=== PATIENT | female | born 1990 | race African-American/Black ===

== ENCOUNTER 2021-06-10 21:21 | Emergency (ER) | payer SELFPAY ==
[2021-06-10 22:16] LABS: Absolute Lymphocytes (CBC) 1.4 K/uL (0.7-4.9); Basophils % 0.2 % (0-1.3); Hematocrit 22.7 % (36.0-45.0); Lymphocytes % 15.9 % (15.3-44.8); MPV 6.3 fL (7.6-11.3); RBC Red Blood Cell Count 3.76 M/uL (3.86-4.86)
[2021-06-10 22:29] LABS: ALT/SGPT 24 U/L (12-78); AST/SGOT 29 U/L (15-37); Albumin 3.9 g/dL (3.4-5.0); Alkaline Phosphatase 45 U/L (45-117); BUN Blood Urea Nitrogen 23 mg/dL (7-18); Bicarbonate 26 mmol/L (21-32); Bilirubin Direct < 0.1 mg/dL (0-0.2); Bilirubin Total 0.3 mg/dL (0.2-1.0); Glucose Level 106 mg/dL (74-106); Potassium 3.7 mmol/L (3.5-5.1); Protein, Total 8.1 g/dL (6.4-8.2); Sodium Level 139 mmol/L (136-145)
[2021-06-10 22:55] LABS: Blood Morphology Comment NOTED (NOT SEEN); Hypochromasia 2+; Platelet Estimate ADEQ; White Blood Cell Scan OK (OK)
--- NOTE | 2021-06-10 23:10 | ER ---
Nurse's Notes [facility] Name: Ana Rosa Ferguson Age: 31 yrs Sex: Female : 1990 Arrival Date: 06/10/2021 Time: 21:26 Bed 5 Private MD: Diagnosis: Rash and other nonspecific skin eruption;Iron deficiency anemia, unspecified Presentation: 06/10 21:34 Chief complaint: Patient states: Rash that has progressed to general body over the last lp1 2 weeks, began on dorsal hands, reports itching, dry skin; Denies any new exposures to skin. Coronavirus screen: At this time, the client does not indicate any symptoms associated with coronavirus-19. Ebola Screen: No symptoms or risks identified at this time. Onset: The symptoms/episode began/occurred gradually, 2 week(s) ago. Anaphylaxis evaluation, no signs or symptoms of anaphylaxis were noted. Initial Sepsis Screen: Does the patient meet any 2 criteria? No. Patient's initial sepsis screen is negative. Does the patient have a suspected source of infection? No. Patient's initial sepsis screen is negative. Risk Assessment: Do you want to hurt yourself or someone else? Patient reports no desire to harm self or others. Onset of symptoms was June 10, 2021. 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 - Social history:: Smoking status: Patient reports the use of cigarette tobacco products, denies chronic smoking, but will smoke occasionally. Screenin:36 Abuse screen: Denies threats or abuse. Denies injuries from another. Nutritional lp1 screening: No deficits noted. Tuberculosis screening: No symptoms or risk factors identified. Fall Risk None identified. Assessment: 06/11 00:06 Reassessment: Patient appears in no apparent distress at this time. Patient states lp1 feeling better. Neuro: Level of Consciousness is awake, alert, obeys commands. Respiratory: Respiratory effort is even, unlabored. Derm: Skin is intact, Skin is dry, Skin is normal. Vital Signs: 06/10 21:34 BP 148 / 74; Pulse 105; Resp 16; Temp 98; Pulse Ox 100% on R/A; Weight 68.04 kg (R); lp1 Height 5 ft. 7 in. (170.18 cm); Pain 0/10; 21:34 Body Mass Index 23.49 (68.04 kg, 170.18 cm) lp1 ED Course: 21:26 Patient arrived in ED. bp1 21:35 Nissa Gomez MD is Attending Physician. sp3 21:35 Triage completed. lp1 21:35 Arm band placed on. lp1 21:36 Patient has correct armband on for positive identification. lp1 21:51 Kell Ann, RN is Primary Nurse. bs2 22:23 Inserted saline lock: 22 gauge in right antecubital area, using aseptic technique. ds4 Blood collected. 06/11 00:07 No provider procedures requiring assistance completed. IV discontinued, No lp1 redness/swelling at site. Pressure dressing applied. Administered Medications: 06/10 22:18 Drug: Benadryl (diphenhydrAMINE) 12.5 mg Route: IVP; Site: right antecubital; bs2 22:18 Drug: SOLU-Medrol (methylPrednisoLONE) 125 mg Route: IVP; Site: right antecubital; bs2 Outcome: 23:10 Discharge ordered by . sp3 06/11 00:07 Discharged to home ambulatory. lp1 Condition: good Discharge instructions given to patient, Instructed on discharge instructions, follow up and referral plans. medication usage, Demonstrated understanding of instructions, follow-up care, medications, Prescriptions given X 2. 00:07 Patient left the ED. lp1 Signatures: Yaa Diaz, RN RN lp1 Chandrakant Horowitz ds4 Yesenia Crump bp1 Nissa Gomez MD MD sp3 Kell Ann, RN RN bs2
--- NOTE | 2021-06-10 23:10 | EDPHYS ---
Physician Documentation [facility] Name: Ana Rosa Ferguson Age: 31 yrs Sex: Female : 1990 Arrival Date: 06/10/2021 Time: 21:26 Bed 5 Private MD: ED Physician Nissa Gomez HPI: 06/10 21:55 This 31 yrs old Black Female presents to ER via Ambulatory with complaints of Rash. sp3 21:55 31-year-old female with no significant past medical history presents with 4-day history sp3 of "rash all over her body". Patient states that she has gone to [facility] emergency department twice and just received topical creams secondary for eczema which she states she has not had a problem with in the past. She states that the rash has now spread over her entire body and it is very pruritic. She denies any other symptoms including fever, URI symptoms, headache, neck pain, chest pain, shortness breath, back pain, abdominal pain, nausea, vomiting, diarrhea, syncope, neuro symptoms, known sick contacts, travel history, known COVID-19 contacts, any other review of systems this time. Remainder of systems are negative.. 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 - Social history:: Smoking status: Patient reports the use of cigarette tobacco products, denies chronic smoking, but will smoke occasionally. ROS: 21:56 Constitutional: Negative for fever, chills, and weight loss, Eyes: Negative for injury, sp3 pain, redness, and discharge, ENT: Negative for injury, pain, and discharge, Neck: Negative for injury, pain, and swelling, Cardiovascular: Negative for chest pain, palpitations, and edema, Respiratory: Negative for shortness of breath, cough, wheezing, and pleuritic chest pain, Abdomen/GI: Negative for abdominal pain, nausea, vomiting, diarrhea, and constipation, Back: Negative for injury and pain, MS/Extremity: Negative for injury and deformity, Neuro: Negative for headache, weakness, numbness, tingling, and seizure, Psych: Negative for depression, anxiety, suicide ideation, homicidal ideation, and hallucinations, Allergy/Immunology: Negative for hives, rash, and allergies, Endocrine: Negative for neck swelling, polydipsia, polyuria, polyphagia, and marked weight changes, Hematologic/Lymphatic: Negative for swollen nodes, abnormal bleeding, and unusual bruising. 21:56 All other systems are negative. Exam: 21:57 Constitutional: This is a well developed, well nourished patient who is awake, alert, sp3 and in no acute distress. Head/Face: Normocephalic, atraumatic. Eyes: Pupils equal round and reactive to light, extra-ocular motions intact. Lids and lashes normal. Conjunctiva and sclera are non-icteric and not injected. Cornea within normal limits. Periorbital areas with no swelling, redness, or edema. ENT: Nares patent. No nasal discharge, no septal abnormalities noted. External auditory canals are clear. Oropharynx with no redness, swelling, or masses, exudates, or evidence of obstruction, uvula midline. Mucous membranes moist. Neck: Trachea midline, no thyromegaly or masses palpated, and no cervical lymphadenopathy. Supple, full range of motion without nuchal rigidity, or vertebral point tenderness. No Meningismus. Chest/axilla: Normal chest wall appearance and motion. Nontender with no deformity. No lesions are appreciated. Cardiovascular: Regular rate and rhythm with a normal S1 and S2. No gallops, murmurs, or rubs. Normal PMI, no JVD. No pulse deficits. Respiratory: Lungs have equal breath sounds bilaterally, clear to auscultation and percussion. No rales, rhonchi or wheezes noted. No increased work of breathing, no retractions or nasal flaring. Abdomen/GI: Soft, non-tender, with normal bowel sounds. No distension or tympany. No guarding or rebound. No evidence of tenderness throughout. Back: No spinal tenderness. No costovertebral tenderness. Full range of motion. MS/ Extremity: Pulses equal, no cyanosis. Neurovascular intact. Full, normal range of motion. Neuro: Awake and alert, GCS 15, oriented to person, place, time, and situation. Cranial nerves II-XII grossly intact. Motor strength 5/5 in all extremities. Sensory grossly intact. Cerebellar exam normal. Normal gait. Psych: Awake, alert, with orientation to person, place and time. Behavior, mood, and affect are within normal limits. 21:57 Skin: Patient has a macular papular rash diffuse throughout her body with evidence of prior pruritus and itching by the patient. Nikolsky sign is negative and it does not appear to be cellulitic. There is no erythema. There is no purulent discharge or weeping. All papules are in the same stage. Patient states that she has had chickenpox as a child has not had any problems since then. All immunizations are up-to-date as far as she remembers.. Vital Signs: 21:34 BP 148 / 74; Pulse 105; Resp 16; Temp 98; Pulse Ox 100% on R/A; Weight 68.04 kg (R); lp1 Height 5 ft. 7 in. (170.18 cm); Pain 0/10; 21:34 Body Mass Index 23.49 (68.04 kg, 170.18 cm) lp1 MDM: 21:35 Patient medically screened. sp3 21:58 Data reviewed: vital signs, nurses notes. ED course: 31-year-old female with diffuse sp3 rash and pruritus. Is unknown whether this could be severe eczema versus allergic reaction versus viral infectious process. Will assess with basic laboratory values, administer Solu-Medrol and Benadryl IV. Disposition based on work-up and likely discharge on medications as determined by her treatment progress.. 23:08 ED course: Was better with the IV medications he received. On her lab work it was noted sp3 that patient has severe iron deficiency anemia with a low MCV and low hemoglobin of 6.8. Patient was told to start taking oral [id number] iron supplements coupled with vitamin C. Will discharge patient on a Medrol Dosepak with PCP follow-up. 06/10 21:39 Order name: Basic Metabolic Panel; Complete Time: 23:05 sp3 06/10 21:39 Order name: CBC with Diff; Complete Time: 23:05 sp3 06/10 23:08 Interpretation: Abnormal. sp3 06/10 21:39 Order name: Hepatic Function; Complete Time: 23:05 sp3 06/10 22:28 Order name: CBC Smear Scan; Complete Time: 23:05 EDMS 06/10 21:39 Order name: IV Saline Lock; Complete Time: 22:23 sp3 06/10 21:39 Order name: Labs collected and sent; Complete Time: 22:23 sp3 Administered Medications: 22:18 Drug: Benadryl (diphenhydrAMINE) 12.5 mg Route: IVP; Site: right antecubital; bs2 22:18 Drug: SOLU-Medrol (methylPrednisoLONE) 125 mg Route: IVP; Site: right antecubital; bs2 Disposition Summary: 06/10/21 23:10 Discharge Ordered Location: Home sp3 Problem: new sp3 Symptoms: have worsened sp3 Condition: Stable sp3 Diagnosis - Rash and other nonspecific skin eruption sp3 - Iron deficiency anemia, unspecified sp3 Followup: sp3 - With: Private Physician - When: - Reason: Re-evaluation by your physician Discharge Instructions: - Discharge Summary Sheet sp3 - Anemia sp3 - Rash, Adult sp3 Forms: - Medication Reconciliation Form sp3 - Thank You Letter sp3 - Antibiotic Education sp3 - Prescription Opioid Use sp3 Prescriptions: - Ferrous Sulfate 325 mg (65 mg Iron) Oral Tablet - take 1 tablet by ORAL route every 8 hours; 90 tablet; Refills: 0, Product sp3 Selection Permitted - Medrol (Rui) 4 mg Oral Tablets, Dose Pack - take 1 tablet by ORAL route as directed - follow package instructions; 1 sp3 packet; Refills: 0, Product Selection Permitted Signatures: Dispatcher [employer] Yaa Lau RN RN lp1 Nissa Gomez MD MD sp3 Kell Ann RN RN bs2
[2021-06-10] MEDS ORDERED: METHYLPREDNISOLONE 125 MG INJ ONE (23:11)
[2021-06-10] MEDS ORDERED: DIPHENHYDRAMINE 50 MG/ML VIAL ONE (23:11)
--- OUTSIDE RECORDS SUMMARY | 2021-06-23 03:54 | XMS REPORT | Continuity of Care Document ---
:1990 Author Organization [facility] t Address [address] [place] [address] Care Team Providers Name Role Phone CRISTINE BREWER Attending Clinician Unavailable Jelain BROWN Attending Clinician Unavailable Bashir SORIA Attending Clinician Unavailable Juju BARRAZA Attending Clinician Unavailable Payers Payer Name Policy Type Policy Number Effective Date Expiration Date S jj [facility] [id number] 2020 00:00:00 Problems This patient has no known problems. Allergies, Adverse Reactions, Alerts Allergy Allergy Status Severity Reaction(s) Onset Inactive Treating Comm ents Source Name Type Date Date Clinician No Known DA Active U 2018-0 [facility] All[facility]ie 4-10 Clear s 00:00: [facility] 00 [facility] No Known DA Active U 2013-0 [facility] Allergie 3-08 Clear s 00:00: Zimm[place] 00 [facility] NO KNOWN Drug Active Univers ALLERGIE Class [facility] Medications This patient has no known medications. Procedures This patient has no known procedures. Encounters Start End Encounter Admission Attending Care Care Encounter Source Date/Time Date/Time Type Type Clinicians Facility Department ID 2020-12-25 2020-12-25 Outpatient Jelani BREWER [facility] [id number] Univers 08:30:00 08:30:00 WILFRIDO [facility] 2020-12-05 2020-12-05 Outpatient [facility] [id number] Univers 08:40:00 08:40:00 [facility] 2020-09-18 2020-09-18 Outpatient Jelani BROWN [facility] [id number] Univers 13:00:00 13:00:00 STEFANY [id number] ity o f [facility] 2020-08-23 2020-08-23 Outpatient R [facility] [id number] Univers 08:30:00 08:30:00 [id number] [facility] 2020-08-23 2020-08-23 [facility] [id number] Univers 08:30:00 08:30:00 MARIBEL [facility] 2020-06-29 2020-06-29 [facility] [id number] Univers 14:30:00 14:30:00 HECTOR [id number] [facility] Results This patient has no known results.
== END 2021-06-11 00:07 | disposition home or self-care (01) ==
LOC: ER 21:21
DX: D50.9 Iron deficiency anemia, unspecified (principal); F17.210 Nicotine dependence, cigarettes, uncomplicated
CPT/HCPCS: 36415; 80048; 80076; 85025; 96374; 96375; 99284; J1200; J2930

== ENCOUNTER 2022-04-27 14:09 | Emergency (ER) | payer SELFPAY ==
--- OUTSIDE RECORDS SUMMARY | 2022-04-27 14:12 | XMS REPORT | Continuity of Care Document ---
:1990 Author Organization [facility] t Address [address] [place] [address] Care Team Providers Name Role Phone PCP, PATIENT DOES NOT HAVE A Primary Care Physician Unavaila raquel Nurse, Adc Pob Immunization Attending Clinician Unavailable José Manuel Becerril DO Attending Clinician JOSÉ MANUEL BECERRIL Attending Clinician Unavailable DAMIR JONES Attending Clinician Unavailable STEFANY BROWN Attending Clinician Unavailable MARIBEL SORIA Attending Clinician Unavailable HECTOR BARRAZA Attending Clinician Unavailable Payers Payer Name Policy Type Policy Number Effective Date Expiration Date Levy gardner [id number] [id number] 2020 00:00:00 Problems Condition Condition Condition Status Onset Resolution Last Treating Co mments Source Name Details Category Date Date Treatment Clinician Date Routine Routine Disease Active Univers 9-30 [place] [facility] Allergies, Adverse Reactions, Alerts Allergy Allergy Status Severity Reaction(s) Onset Inactive Treating Comm ents Source Name Type Date Date Clinician No Known DA Active U [facility] Allergie 4-10 Clear s 00:00: [place] 00 [facility] No Known DA Active U [facility] Allergie 3-08 Clear s 00:00: Zimmerman 00 [facility] NO KNOWN Drug Active Univers ALLERGIE Class ity of S [facility] Social History Social Habit Start Date Stop Date Quantity Comments Source Alcohol intake 2016-05-10 2016-05-10 0 /d University of 00:00:00 00:00:00 [facility] Tobacco Comment 2016-03-19 2016-03-19 Smoked x 1 since Uni versity of 00:00:00 00:00:00 delivery [facility] History of 2012-10-09 Smoker University of tobacco use 00:00:00 [facility] Sex Ass[birth year] At [birth year] Universit y of 00:00:00 00:00:00 [facility] Smoking Status Start Date Stop Date Source Former smoker 2015-10-10 00:00:00 2015-10-10 00:00:00 [facility] Medications Ordered Filled Start Stop Current Ordering Indication Dosage Frequency Signature Comments Components Source Medication Medication Date Date Medication? Clinician (SIG) Name Name Yes 1{tbl} Take 1 Unive rs vitamin 8-04 tablet by ity of w/FA 00:00: mouth [place] (PRENATABS 00 daily. Medical RX) tablet Branch docusate Yes 240mg Take 1 Univer s calcium 8-04 capsule by ity of (SURFAK) 00:00: mouth once Ap as 240 mg 00 daily as Medical capsule needed for Branch Constipati on. ferrous Yes 325mg Take 1 Univers sulfate 325 8-04 tablet by ity of mg (65 mg 00:00: mouth 2 [place] iron) 00 (two) Medical tablet times Branch daily. ibuprofen Yes 600mg Take 1 Unive rs (MOTRIN) 8-04 tablet by ity of 600 mg 00:00: mouth [place] tablet 00 every 6 Medical (six) Branch hours as needed for Pain (scale 1-3) or Pain (scale 4-6). Take with food or milk. acetaminoph Yes 1{tbl} Take 1 Un aydee en-codeine 8-04 tablet by ity of (TYLENOL 00:00: mouth [place] #3) 300-30 00 every 6 Medica l mg tablet (six) Branch hours as needed for Pain (scale 1-3) or Pain (scale 4-6). For patients < 12 years recommend do not exceed 5 doses or 2.6 gm in 24 hours totals for all acetaminop hen containing products. For adults with normal hepatic function recommend do not exceed 3 grams in 24 hours for all acetaminop hen containing products. PRENATE 2016- Yes Univers MINI, FERR 6-11 ity of ASP GLYCIN, 00:00: [place] 18-1-350 mg 00 [facility] Immunizations Ordered Filled Immunization Date Status Comments Sour e Immunization Name Name SARS-COV-2 COVID-19 2021-08-21 Completed Unive rsity of PFIZER VACCINE 00:00:00 [facility] SARS-COV-2 COVID-19 2020-12-25 Completed Unive rsity of PFIZER VACCINE 00:00:00 [facility] SARS-COV-2 COVID-19 2020-12-05 Completed Unive rsity of PFIZER VACCINE 00:00:00 [facility] TDAP 2016-01-03 Completed University 00:00:00 [facility] Procedures Procedure Date / Time Performed Performing Clinician [facility] e SARS-COV-2 COVID-19 2021-08-21 15:01:17 Doctor Unassigned, No Un iversity of [place] VACCINE,0.3ML,IM Name [facility] ([facility]) Encounters Start End Encounter Admission Attending Care Care Encounter Source Date/Time Date/Time Type Type Clinicians Facility Department ID 2021-08-21 2021-08-21 Imm/Inj Nurse, Adc Pob Immunization [facility] [id number] Univers 09:30:00 09:30:00 Visit José Manuel Becerril [id number] [facility] [id number] Martine PANDEYESSAMARILIS [id number] Tn dical [address] 2021-08-21 2021-08-21 Outpatient Jelani BECERRIL [facility] [id number] Univers 09:30:00 08:59:13 JOSÉ MANUEL ly [facility] 2020-12-25 2020-12-25 Outpatient Jelani BECERRIL [facility] [id number] Univers 08:30:00 08:28:56 JOSÉ MANUEL ly [facility] 2020-12-05 2020-12-05 Outpatient R ROBERT [facility] [id number] Univers 08:40:00 08:22:48 DAMIR ly [facility] 2020-09-18 2020-09-18 [facility] [id number] Univers 13:00:00 13:00:00 STEFANY [id number] it o [facility] 2020-08-23 2020-08-23 Outpatient R [facility] [id number] Univers 08:30:00 08:30:00 [id number] [facility] 2020-08-23 2020-08-23 [facility] [id number] Univers 08:30:00 08:30:00 MARIBEL [facility] 2020-06-29 2020-06-29 [facility] [id number] Univers 14:30:00 14:30:00 HECTOR [id number] [facility] Results This patient has no known results.
[2022-04-27] MEDS ORDERED: LIDOCAINE 1% MPF 30 ML VIAL ONE (14:34)
[2022-04-27] MEDS ORDERED: BUPIVACAINE 0.5% PF 10 ML VIAL ONE (14:57)
[2022-04-27] MEDS ORDERED: IBUPROFEN 400 MG TAB ONE (14:58)
[2022-04-27] MEDS ORDERED: HYDROCODONE/APAP 7.5/325 MG TAB ONE (14:58)
--- NOTE | 2022-04-27 16:10 | ER ---
Nurse's Notes [facility] Name: Ana Rosa Ferguson Age: 31 yrs Sex: Female : 1990 Arrival Date: 04/27/2022 Time: 14:10 Bed 12 Private MD: Diagnosis: Cutaneous abscess of left axilla-left arm Presentation: 04/27 14:17 Chief complaint: Abscess under left arm x 1 week. Coronavirus screen: At this time, the hb client does not indicate any symptoms associated with coronavirus-19. Ebola Screen: No symptoms or risks identified at this time. Risk Assessment: Do you want to hurt yourself or someone else? Patient reports no desire to harm self or others. Onset of symptoms was April 20, 2022. 14:17 Method Of Arrival: Ambulatory 14:17 Acuity: SANTI 4 14:20 Initial Sepsis Screen: Does the patient meet any 2 criteria? No. Patient's initial iw sepsis screen is negative. Does the patient have a suspected source of infection? No. Patient's initial sepsis screen is negative. Triage Assessment: 15:00 General: Appears in no apparent distress. Behavior is calm, cooperative. 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 - Social history:: Smoking status: unknown. Screenin:18 Abuse screen: Denies threats or abuse. Denies injuries from another. Nutritional iw screening: No deficits noted. Tuberculosis screening: No symptoms or risk factors identified. Fall Risk None identified. Assessment: 15:00 General: Appears in no apparent distress. Behavior is calm, cooperative. Pain: iw Complains of pain in left axilla. Neuro: Level of Consciousness is awake, alert, obeys commands, Oriented to person, place, time, situation, Moves all extremities. Cardiovascular: Patient's skin is warm and dry. Respiratory: Respiratory effort is even, unlabored, Respiratory pattern is regular, symmetrical. Derm: Skin is intact, is healthy with good turgor. Derm: Abscess located on left axilla is quarter sized. Musculoskeletal: Range of motion: intact in all extremities. Vital Signs: 14:17 BP 128 / 75; Pulse 88; Resp 16; Temp 98.1; Pulse Ox 100% on R/A; Weight 68.04 kg; hb Height 5 ft. 7 in. (170.18 cm); Pain 10/10; 14:17 Body Mass Index 23.49 (68.04 kg, 170.18 cm) hb ED Course: 14:10 Patient arrived in ED. am2 14:13 Glen Yadav PA is PHCP. cp 14:13 Anaid Meier MD is Attending Physician. cp 14:19 Triage completed. hb 14:19 Arm band placed on. hb 14:20 Susan Blake, ARTI is Primary Nurse. iw 15:00 Patient has correct armband on for positive identification. iw 16:00 Assist provider with I \T\ D: of an abscess on left axilla Set up I\T\D tray. Performed by iw Glen WILDER Dressing with 4X4s, tape Patient tolerated well. Patient did not have IV access during this emergency room visit. 16:08 Marcell Garcia MD is Referral Physician. cp Administered Medications: 14:50 Drug: Hydrocodone-Acetaminophen (7.5 mg-325 mg) 1 tabs Route: PO; iw 15:10 Follow up: Response: No adverse reaction iw 14:50 Drug: Ibuprofen 800 mg Route: PO; iw 15:10 Follow up: Response: No adverse reaction iw 15:50 Drug: Lidocaine (1 %) 10 ml {Note: admin by Glen VELA} Volume: 20 ml; Route: iw Infiltration; 15:50 Drug: Marcaine (bupivacaine) (0.5 %) 10 ml {Note: admin by Glen VELA} Volume: 10 ml; iw Route: Infiltration; 16:18 Drug: Bactrim (trimethoprim-sulfamethoxazole) (160 mg-800 mg (DS) 1 tablet Route: PO; iw 16:40 Follow up: Response: No adverse reaction iw 16:19 Drug: Clindamycin 300 mg Route: PO; iw 16:40 Follow up: Response: No adverse reaction iw Medication: 16:00 VIS not applicable for this client. iw Outcome: 16:09 Discharge ordered by . cp 16:18 Discharged to home ambulatory, with family. iw 16:18 Condition: good 16:18 Discharge instructions given to patient, Instructed on discharge instructions, follow up and referral plans. medication usage, Demonstrated understanding of instructions, follow-up care, medications, Prescriptions given X 3. 16:19 Patient left the ED. iw Signatures: Susan Blake RN RN iw Page, Corey, PA PA cp Baxter, Heather, RN RN hb Moreno, Amanda am2
--- NOTE | 2022-04-27 16:10 | EDPHYS ---
Physician Documentation [facility] Name: Ana Rosa Ferguson Age: 31 yrs Sex: Female : 1990 Arrival Date: 04/27/2022 Time: 14:10 Bed 12 Private MD: ED Physician Anaid Meier HPI: 04/27 14:45 This 31 yrs old Black Female presents to ER via Ambulatory with complaints of Abscess - cp left underarm. 14:45 The patient presents with an abscess of the left arm axilla. Description: fluctuant, cp swollen. Onset: The symptoms/episode began/occurred 1 week(s) ago. 14:45 Associated signs and symptoms: Pertinent negatives: discharge, drainage, fever, cp shortness of breath. 14:45 Severity of symptoms: in the emergency department the symptoms are unchanged, despite cp home interventions. 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 - Social history:: Smoking status: unknown. ROS: 14:50 Constitutional: Negative for body aches, chills, fever, poor PO intake. cp 14:50 Respiratory: Negative for cough, shortness of breath. cp 14:50 Abdomen/GI: Negative for abdominal pain, nausea, vomiting, and diarrhea. 14:50 Skin: Positive for swelling, of the left arm axilla. 14:50 All other systems are negative. Exam: 14:55 Constitutional: The patient appears in no acute distress, alert, awake, non-toxic, well cp developed, well nourished, uncomfortable. 14:55 Head/Face: Normocephalic, atraumatic. cp 14:55 Eyes: Periorbital structures: appear normal, Conjunctiva: normal, no exudate, no injection, Sclera: no appreciated abnormality, Lids and lashes: appear normal, bilaterally. 14:55 ENT: External ear(s): are unremarkable, Nose: is normal, Mouth: Lips: moist, Oral cp mucosa: moist. 14:55 Chest/axilla: Axilla: abscess, of the left axilla, with tenderness, medium size. 14:55 Cardiovascular: Rate: normal. 14:55 Respiratory: the patient does not display signs of respiratory distress, Respirations: normal, no use of accessory muscles, no retractions, Breath sounds: are clear throughout, no decreased breath sounds, no stridor, no wheezing. 14:55 Abdomen/GI: Exam negative for discomfort, distension, guarding, Inspection: abdomen appears normal. 14:55 Neuro: Orientation: to person, place \T\ time. Mentation: is normal. Vital Signs: 14:17 BP 128 / 75; Pulse 88; Resp 16; Temp 98.1; Pulse Ox 100% on R/A; Weight 68.04 kg; hb Height 5 ft. 7 in. (170.18 cm); Pain 10/10; 14:17 Body Mass Index 23.49 (68.04 kg, 170.18 cm) hb Procedures: 16:06 I \T\ D: Incision and drainage was performed for an abscess of the left arm axilla cp Prepped with Betadine, Anesthetized with 10 cc mixture 1% lidocaine w/o epi and 0.5% marcaine. Incised with #11 blade. Drained small amount purulent fluid. bloody fluid. Packed with iodoform gauze, Dressing: sterile 4x4 gauze, the patient tolerated the procedure well. MDM: 14:20 Patient medically screened. cp 16:09 Data reviewed: vital signs, nurses notes, and as a result, I will discharge patient. 16:09 Counseling: I had a detailed discussion with the patient and/or guardian regarding: the cp historical points, exam findings, and any diagnostic results supporting the discharge/admit diagnosis, the need for outpatient follow up, a general surgeon, to return to the emergency department if symptoms worsen or persist or if there are any questions or concerns that arise at home. 04/27 14:40 Order name: I\T\D Setup; Complete Time: 15:11 cp Administered Medications: 14:50 Drug: Hydrocodone-Acetaminophen (7.5 mg-325 mg) 1 tabs Route: PO; iw 15:10 Follow up: Response: No adverse reaction iw 14:50 Drug: Ibuprofen 800 mg Route: PO; iw 15:10 Follow up: Response: No adverse reaction iw 15:50 Drug: Lidocaine (1 %) 10 ml {Note: admin by Glen VELA} Volume: 20 ml; Route: iw Infiltration; 15:50 Drug: Marcaine (bupivacaine) (0.5 %) 10 ml {Note: admin by Glen WILDER.} Volume: 10 ml; iw Route: Infiltration; 16:18 Drug: Bactrim (trimethoprim-sulfamethoxazole) (160 mg-800 mg (DS) 1 tablet Route: PO; iw 16:40 Follow up: Response: No adverse reaction iw 16:19 Drug: Clindamycin 300 mg Route: PO; iw 16:40 Follow up: Response: No adverse reaction iw Disposition Summary: 04/27/22 16:09 Discharge Ordered Location: Home cp Problem: new cp Symptoms: have improved cp Condition: Stable cp Diagnosis - Cutaneous abscess of left axilla - left arm cp Followup: cp - With: Marcell Garcia MD - When: 1 - 2 days - Reason: Wound Recheck Discharge Instructions: - Discharge Summary Sheet cp - Skin Abscess cp - Incision and Drainage cp - Incision and Drainage, Care After cp Forms: - Medication Reconciliation Form cp - Thank You Letter cp - Antibiotic Education cp - Prescription Opioid Use cp Prescriptions: - Clindamycin HCl 300 mg Oral Capsule - take 1 capsule by ORAL route every 6 hours for 10 days; 40 capsule; Refills: 0, cp Product Selection Permitted - Ibuprofen 800 mg Oral Tablet - take 1 tablet by ORAL route every 8 hours As needed take with food; 30 tablet; cp Refills: 0, Product Selection Permitted - Bactrim DS 800-160 mg Oral Tablet - take 1 tablet by ORAL route every 12 hours for 10 days; 20 tablet; Refills: 0, cp Product Selection Permitted - Tramadol 50 mg Oral Tablet - take 1 tablet by ORAL route every 8 hours as needed; 12 tablet; Refills: 0, cp Product Selection Permitted Addendum: 04/29/2022 08:05 STAFF ATTESTATION STATEMENT: I was immediately available onsite in the emergency s d2 department for consultation in the care of this patient. I did not see or examine this patient. Anaid Meier MD. Signatures: Susan Blake RN RN iw Page, Corey, PA PA cp Baxter, Heather, RN RN Anaid Meier MD MD sd2
[2022-04-27] MEDS ORDERED: SMZ./TMP. 800/160 MG TABLET ONE (16:20)
[2022-04-29 01:14] VITALS: BP 128/75; TEMP 98.1; O2SAT 100
== END 2022-04-27 16:19 | disposition home or self-care (01) ==
LOC: ER 14:09
PROC: 0H9CXZZ Drainage of Left Upper Arm Skin, External Approach (ICD-10-PCS; principal; 2022-04-27)
DX: L02.412 Cutaneous abscess of left axilla (principal)
CPT/HCPCS: 99283

== ENCOUNTER 2022-09-18 23:45 | Emergency (ER) | payer SELFPAY ==
--- OUTSIDE RECORDS SUMMARY | 2022-09-18 23:48 | XMS REPORT | Continuity of Care Document ---
:1990 Author Organization [facility] t Address [address] [place] [address] Care Team Providers Name Role Phone Unavailable Unavailable Unavailable Payers Payer Name Policy Type Policy Number Effective Date Expiration Date S ource Problems This patient has no known problems. Allergies, Adverse Reactions, Alerts Allergy Allergy Status Severity Reaction(s) Onset Inactive Treating Comm ents Source Name Type Date Date Clinician No Known DA Active U 2019-0 [facility] Allergie 4-10 Clear s 00:00: Zimmerman 00 [facility] No Known DA Active U 2014-0 [facility] Allergie 3-08 Clear s 00:00: Zimmerman 00 [facility] Medications This patient has no known medications. Procedures This patient has no known procedures. Results This patient has no known results.
[2022-09-18] MEDS ORDERED: METHYLPREDNISOLONE 125 MG INJ ONE (23:59)
[2022-09-19] MEDS ORDERED: FAMOTIDINE 20 MG TAB ONE
--- NOTE | 2022-09-19 00:15 | ER ---
Nurse's Notes [facility] Name: Ana Rosa Ferguson Age: 32 yrs Sex: Female : 1990 Arrival Date: 09/18/2022 Time: 23:47 Bed IW1 Private MD: Diagnosis: Rash and other nonspecific skin eruption Presentation: 09/19 00:04 Chief complaint: Patient states: "About two weeks ago I have been trying over the tw5 counter medications for the skin irritations. I have tried Benadryl, hydrocortisone, nothing has helped with my skin irritation. It was first on my hands, then it spread to my arms and now all over my body.". Coronavirus screen: Vaccine status: Patient reports receiving the 2nd dose of the covid vaccine. [employer]. Ebola Screen: Patient negative for fever greater than or equal to 101.5 degrees Fahrenheit, and additional compatible Ebola Virus Disease symptoms Patient denies exposure to infectious person. Patient denies travel to an Ebola-affected area in the 21 days before illness onset. Initial Sepsis Screen: Does the patient meet any 2 criteria? HR > 90 bpm. Does the patient have a suspected source of infection? No. Patient's initial sepsis screen is negative. Risk Assessment: Do you want to hurt yourself or someone else? Patient reports no desire to harm self or others. Onset of symptoms is unknown. 00:04 Method Of Arrival: Ambulatory tw5 00:04 Acuity: SANTI 5 tw5 Triage Assessment: 00:06 General: Appears uncomfortable, Behavior is calm, appropriate for age. General: "Its tw5 not pain, it is itching.". Pain: Pain currently is 10 out of 10 on a pain scale. 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 - Social history:: Smoking status: Patient reports the use of cigarette tobacco products, denies chronic smoking, but will smoke occasionally. Screenin:07 [facility] ED Fall Risk Assessment (Adult) History of falling in the last 3 months, tw5 including since admission No falls in past 3 months (0 pts). Abuse screen: Denies threats or abuse. Denies injuries from another. Nutritional screening: No deficits noted. Tuberculosis screening: No symptoms or risk factors identified. Assessment: 00:07 General: Appears uncomfortable, Behavior is appropriate for age. tw5 Vital Signs: 00:04 BP 124 / 92; Pulse 105; Resp 18; Temp 98.2; Pulse Ox 100% ; Weight 68.04 kg; Height 5 tw5 ft. 7 in. (170.18 cm); Pain 5/10; 00:04 Body Mass Index 23.49 (68.04 kg, 170.18 cm) tw5 00:04 "05/20 Itching." tw5 ED Course: 09/18 23:47 Patient arrived in ED. jj6 23:49 [facility] Clayton [facility]C [facility] ras 23:49 Glen Driscoll MD is Attending Physician. kb 09/19 00:06 Triage completed. tw5 00:06 Arm band placed on. tw5 00:07 Patient has correct armband on for positive identification. tw5 00:07 No provider procedures requiring assistance completed. Patient did not have IV access tw5 during this emergency room visit. Administered Medications: 00:11 Drug: SOLU-Medrol (methylPREDNISolone sodium succinate) 125 mg Route: IM; Site: left tw5 ventrogluteal; 00:11 Drug: Pepcid (famotidine) 20 mg Route: PO; tw5 Medication: 00:07 VIS not applicable for this client. tw5 Outcome: 09/18 23:55 Discharge ordered by . ras 09/19 00:11 Discharged to home ambulatory. tw5 Condition: stable Discharge instructions given to patient, Instructed on discharge instructions, follow up and referral plans. Demonstrated understanding of instructions, follow-up care, medications, Prescriptions given X 2. 00:14 Patient left the ED. tw5 Signatures: Aziza Clayton FNP-C FNP-Ckb Wood, Tiffany tw5 Norma Serrano jj6
--- NOTE | 2022-09-19 00:15 | EDPHYS ---
Physician Documentation [facility] Name: Ana Rosa Ferguson Age: 32 yrs Sex: Female : 1990 Arrival Date: 09/18/2022 Time: 23:47 Bed IW1 Private MD: ED Physician Glen Driscoll HPI: 09/18 23:57 This 32 yrs old Black Female presents to ER via Unassigned with complaints of rash. kb 23:57 The patient's rash thought to be caused by an unknown cause. The rash is located on the kb body diffusely. The rash can be described as diffuse. Onset: The symptoms/episode began/occurred 2 week(s) ago. Associated signs and symptoms: Pertinent positives: itching, Pertinent negatives: fever, Pain. Severity of symptoms: At their worst the symptoms were moderate in the emergency department the symptoms are unchanged. Treatment given at home: Benadryl. The patient has not experienced similar symptoms in the past. The patient has not recently seen a physician. 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 - Social history:: Smoking status: Patient reports the use of cigarette tobacco products, denies chronic smoking, but will smoke occasionally. ROS: 09/18 23:57 Constitutional: Negative for fever, chills, and weight loss. kb Skin: Positive for rash, diffusely. All other systems are negative. Exam: 23:57 Constitutional: This is a well developed, well nourished patient who is awake, alert, kb and in no acute distress. Head/Face: Normocephalic, atraumatic. Cardiovascular: Regular rate and rhythm with a normal S1 and S2. No gallops, murmurs, or rubs. No pulse deficits. Respiratory: Respirations even and unlabored. No increased work of breathing. Talking in full sentences Abdomen/GI: Soft, non-tender. No distention MS/ Extremity: Pulses equal, no cyanosis. Neurovascular intact. Full, normal range of motion. Neuro: Awake and alert, GCS 15, oriented to person, place, time, and situation. Moves all extremities. Normal gait. Psych: Awake, alert, with orientation to person, place and time. Behavior, mood, and affect are within normal limits. 23:57 Skin: rash a moderate rash is noted, and is diffusely located. Vital Signs: 09/19 00:04 BP 124 / 92; Pulse 105; Resp 18; Temp 98.2; Pulse Ox 100% ; Weight 68.04 kg; Height 5 tw5 ft. 7 in. (170.18 cm); Pain 5/10; 00:04 Body Mass Index 23.49 (68.04 kg, 170.18 cm) tw5 00:04 "05/20 Itching." tw5 MDM: 09/18 23:55 Patient medically screened. kb 23:56 Differential diagnosis: allergic reaction, parasite infection, eczema. Data reviewed: kb vital signs, nurses notes. 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 Administered Medications: 09/19 00:11 Drug: SOLU-Medrol (methylPREDNISolone sodium succinate) 125 mg Route: IM; Site: left tw5 ventrogluteal; 00:11 Drug: Pepcid (famotidine) 20 mg Route: PO; tw5 Disposition Summary: 09/18/22 23:55 Discharge Ordered Location: Home kb Condition: Stable kb Diagnosis - Rash and other nonspecific skin eruption kb Followup: kb - With: Emergency Department - When: As needed - Reason: Worsening of condition Followup: kb - With: Private Physician - When: 2 - 3 days - Reason: Recheck today's complaints, Continuance of care, Re-evaluation by your physician Discharge Instructions: - Discharge Summary Sheet kb - Rash, Adult, [id number] kb Forms: - Medication Reconciliation Form kb - Thank You Letter kb - Antibiotic Education kb - Prescription Opioid Use kb Prescriptions: - Pepcid 20 mg Oral Tablet - take 1 tablet by ORAL route every 12 hours for 5 days; 10 tablet; Refills: 0, kb Product Selection Permitted - Prednisone 20 mg Oral Tablet - take 1 tablet by ORAL route once daily for 5 days; 5 tablet; Refills: 0, kb Product Selection Permitted Signatures: Aziza Clayton FNP-C FNP-Ckb Wood, Tiffany tw5
[2022-09-19 00:31] VITALS: BP 124/92; TEMP 98.2; O2SAT 100
== END 2022-09-19 00:14 | disposition home or self-care (01) ==
LOC: ER 23:45
DX: R21 Rash and other nonspecific skin eruption (principal); F17.210 Nicotine dependence, cigarettes, uncomplicated
CPT/HCPCS: 96372; 99283; J2930

== ENCOUNTER 2023-01-26 19:02 | Emergency (ER) | payer SELFPAY ==
--- OUTSIDE RECORDS SUMMARY | 2023-01-26 19:05 | XMS REPORT | Continuity of Care Document ---
:1990 Author Organization [facility] t Address [address] [facility] [address] [place] [address] Care Team Providers Name Role Phone Unavailable Unavailable Unavailable Payers Payer Name Policy Type Policy Number Effective Date Expiration Date S ource Problems This patient has no known problems. Allergies, Adverse Reactions, Alerts Allergy Allergy Status Severity Reaction(s) Onset Inactive Treating Comm ents Source Name Type Date Date Clinician No Known DA Active U 2018-0 [facility] Allergie 4-10 Clear s 00:00: Zimmerman 00 [facility] No Known DA Active U 2013-0 [facility] Allergie 3-08 Clear s 00:00: Zimmerman 00 [facility] Medications This patient has no known medications. Procedures This patient has no known procedures. Results This patient has no known results. Notes Date/Time Note Provider Source 2018-11-18 12:06[facility]00[facility]00:00 [facility] REPORT#:[id number] REPORT STATUS: Signed DATE:11/18/18 TIME: 1206 PATIENT: MARLON FREEMAN UNIT #: [id number] ROOM/BED: AGE: 28 SEX: F PCP PHYS: No Primary or Family Ph ysician SERVICE AUTHOR: Deon Mason * ALL edits or amendments must be made on the [employer]/computer document * HPI-Sore Throat General Confirmed Patient Yes Initial Greet Date/Time 11/18/18 1158 Presentation Chief Complaint Sore throat, Pain with swallowin g Hx Obtained From Patient Onset Occurred Yesterday Symptom Duration Since onset Progression since Onset Gradually worsening Free Text HPI Notes Free Text HPI Notes 28 y/o F w/ no PMHx presents to the ED w / c/o progressive sore throat starting yesterday. She reports MENDOZA earache bilat in assoc w/ sx. She denies F/C or cough. No further complaints. Portions of this section were scribed by Levy Woo on 11/18/18 at 1216 Review of Systems ROS Statements All systems rev neg except as marked. Focused Review of Systems Constitutional Denies: Chills, Fever. Ears/Nose/Throat Reports: Earache bilat, Sore throat. Neurologic Reports: Headache. Portions of this section were scribed by Levy Woo on 11/18/18 at 1216 Past Medical History - Adult Stated Complaint SORE THROAT Allergies Coded Allergies: No Known Allergies (11/18/18) Home Medications Reported Medications No Known Home Medications Pt reports no significant: Past medical history, Past surgical history Smoking status for patients 13 years old or olde r: Never Smoker Other Social History Local resident Portions of this section were scribed by Levy Woo on 11/18/18 at 1215 Physical Exam Vital Signs Vital Signs First Documented: Result Date Time Pulse Ox 100 04/10 1205 B/P 119/81 04/10 1205 B/P Mean 93 04/10 1205 O2 Delivery Room air 04/ 1205 Temp 37.1 04/10 1205 Pulse 92 04/10 1205 Resp 16 11/18 1205 Last Documented: Result Date Time Pulse Ox 100 04/10 1205 B/P 119/81 04/10 1205 B/P Mean 93 04/10 1205 O2 Delivery Room air 04/ 1205 Temp 37.1 04/10 1205 Pulse 92 04/10 1205 Resp 16 / 1205 Review of Vital Signs Reviewed Focused PE General/Const General/Const Awake, Alert, Well developed, Traffic Rate Computer perative Ears/Nose/Throat Ears/Nose/Throat Airway patent, Mucous membrane s moist, No peritonsillar abscess Text/Dict Notes BL tonsillar exudate erythema, uvula midline MS Neck Neck Supple, No meningismus, Full range of mary on, No swelling, Non-tender, No midline vertebral tend Text/Dict Notes anterior cervical lymphadenopathy Resp/Chest Respiratory/Chest Breath sounds NL, No respirat ory distress, No rales, No rhonchi, No wheezing Cardiovascular Cardiovascular Heart rate NL, Regular rhythm, H eart sounds NL Skin Skin Warm, Dry, Intact Neurologic Neurologic Oriented X3, Speech NL Additional PE MS Head Head Atraumatic, Normocephalic Portions of this section were scribed by Levy Woo on 11/18/18 at 1216 Interpretation Diagnostics Lab Results Interpretation Results Microbiology: Date/Time Procedure - Status Source Growth 11/19 1207 Group A Streptococcus Screen (JOANN) - RES THROAT 11/19 1207 Streptococcus Culture - RES THROAT Point of Care Testing Pulse Oximetry Pulse Ox % 100 On: Room air Interpretation Interpreted by me, Pulse oximetr y normal Time 1205 Portions of this section were scribed by Levy Woo on 11/18/18 at 1216 Re-Evaluation MDM Free Text MDM Notes Free Text MDM Notes patient with history concerning for bacterial to nsilitis will need abx to treat she denies chest pain or cough non toxic here in ed Patient Discharge Departure Vital Signs/Condition Vital Signs First Documented: Result Date Time Pulse Ox 100 04/ 1205 B/P 119/81 04/10 1205 B/P Mean 93 04/10 1205 O2 Delivery Room air 04/ 1205 Temp 37.1 04/10 1205 Pulse 92 04/10 1205 Resp 16 04/10 1205 Last Documented: Result Date Time Pulse Ox 100 04/ 1205 B/P 119/81 04/10 1205 B/P Mean 93 04/10 1205 O2 Delivery Room air 04/ 1205 Temp 37.1 04/10 1205 Pulse 92 04/10 1205 Resp 16 04/10 1205 All vital signs available at the time of this en try have been reviewed. Condition Stable Clinical Impression Clinical Impression Primary Impression: Pharyngitis Disposition Decision Discharge )( Discharged to Home Yes )( Time 1216 )( Date 11/18/18 Discharge/Care Plan Counseled Regarding Diagnosi s, Prescriptions, Need for follow-up, When to return to ED Prescriptions Augmentin Prednisone Quality Measures Pharyngitis Testing Antibiotic prescribed, Group A Strep test doc Supervising Physician Note Scribe Statement Celestine Woo, 11/18/18 1207 , scribing for and in the presence of Deon Isabella , PA. Signed By: Celestine Woo, 11/18/18 1207 Provider Scribed Statement I personally performed the s ervices described in this documentation and reviewed the documentation that was dictated to the scrib e(s) in my presence, and it accurately records my words and actions. Deon Mason, 11/18/18 Portions of this section were scribed by Levy oWo on 11/18/18 at 1206 Electronically Signed by Deon Mason on at 1611 RPT #:[id number] END OF REPORT 2018-11-18 12:06:00-00:00 [facility] EMERGENCY PROVIDER REPORT REPORT#:[id number] REPORT STATUS: Signed DATE:11/18/18 TIME: 1206 PATIENT: MARLON FREEMAN UNIT #: [id number] ROOM/BED: AGE: 28 SEX: F PCP PHYS: No Primary or Family Ph ysician SERVICE AUTHOR: Deon Mason * ALL edits or amendments must be made on the [employer]/computer document * Deon Mason 11/18/18 1206: HPI-Sore Throat General Confirmed Patient Yes Presentation Chief Complaint Sore throat, Pain with swallowin g Hx Obtained From Patient Onset Occurred Yesterday Symptom Duration Since onset Progression since Onset Gradually worsening Free Text HPI Notes Free Text HPI Notes 28 y/o F w/ no PMHx presents to the ED w / c/o progressive sore throat starting yesterday. She reports MENDOZA earache bilat in assoc w/ sx. She denies F/C or cough. No further complaints. Portions of this section were scribed by Levy Woo on 11/18/18 at 1216 Review of Systems ROS Statements All systems rev neg except as marked. Focused Review of Systems Constitutional Denies: Chills, Fever. Ears/Nose/Throat Reports: Earache bilat, Sore throat. Neurologic Reports: Headache. Portions of this section were scribed by Levy Woo on 11/18/18 at 1216 Past Medical History - Adult Stated Complaint SORE THROAT Allergies Coded Allergies: No Known Allergies (11/18/18) Home Medications Reported Medications No Known Home Medications Pt reports no significant: Past medical history, Past surgical history Smoking status for patients 13 years old or olde r: Never Smoker Other Social History Local resident Portions of this section were scribed by Levy Woo on 11/18/18 at 1215 Physical Exam Vital Signs Vital Signs First Documented: Result Date Time Pulse Ox 100 11/18 1205 B/P 119/81 11/18 1205 B/P Mean 93 11/18 1205 O2 Delivery Room air 11/18 1205 Temp 37.1 11/18 1205 Pulse 92 11/18 1205 Resp 16 11/18 1205 Last Documented: Result Date Time Pulse Ox 100 11/18 1205 B/P 119/81 11/18 1205 B/P Mean 93 11/18 1205 O2 Delivery Room air 11/18 1205 Temp 37.1 11/18 1205 Pulse 92 11/18 1205 Resp 16 11/18 1205 Review of Vital Signs Reviewed Focused PE General/Const General/Const Awake, Alert, Well developed, Traffic Rate Computer perative Ears/Nose/Throat Ears/Nose/Throat Airway patent, Mucous membrane s moist, No peritonsillar abscess Text/Dict Notes BL tonsillar exudate erythema, uvula midline MS Neck Neck Supple, No meningismus, Full range of mary on, No swelling, Non-tender, No midline vertebral tend Text/Dict Notes anterior cervical lymphadenopathy Resp/Chest Respiratory/Chest Breath sounds NL, No respirat ory distress, No rales, No rhonchi, No wheezing Cardiovascular Cardiovascular Heart rate NL, Regular rhythm, H eart sounds NL Skin Skin Warm, Dry, Intact Neurologic Neurologic Oriented X3, Speech NL Additional PE MS Head Head Atraumatic, Normocephalic Portions of this section were scribed by Levy Woo on 11/18/18 at 1216 Interpretation Diagnostics Lab Results Interpretation Results Microbiology: Date/Time Procedure - Status Source Growth 11/19 1207 Group A Streptococcus Screen (JOANN) - RES THROAT 11/19 1207 Streptococcus Culture - RES THROAT Point of Care Testing Pulse Oximetry Pulse Ox % 100 On: Room air Interpretation Interpreted by me, Pulse oximetr y normal Time 1205 Portions of this section were scribed by Levy Woo on 11/18/18 at 1216 Re-Evaluation MDM Free Text MDM Notes Free Text MDM Notes patient with history concerning for bacterial to nsilitis will need abx to treat she denies chest pain or cough non toxic here in ed Patient Discharge Departure Vital Signs/Condition Vital Signs First Documented: Result Date Time Pulse Ox 100 04/10 1205 B/P 119/81 04/10 1205 B/P Mean 93 04/10 1205 O2 Delivery Room air 04/10 1205 Temp 37.1 04/10 1205 Pulse 92 04/10 1205 Resp 16 04/10 1205 Last Documented: Result Date Time Pulse Ox 100 04/10 1205 B/P 119/81 04/10 1205 B/P Mean 93 04/10 1205 O2 Delivery Room air 04/10 1205 Temp 37.1 04/10 1205 Pulse 92 04/10 1205 Resp 16 04/10 1205 All vital signs available at the time of this en try have been reviewed. Condition Stable Clinical Impression Clinical Impression Primary Impression: Pharyngitis Disposition Decision Discharge )( Discharged to Home Yes )( Time 1216 )( Date 11/18/18 Discharge/Care Plan Counseled Regarding Diagnosi s, Prescriptions, Need for follow-up, When to return to ED Prescriptions Augmentin Prednisone Quality Measures Pharyngitis Testing Antibiotic prescribed, Group A Strep test doc Supervising Physician Note Scribe Statement Celestine Woo, 11/18/18 1207 , scribing for and in the presence of TINA Darling. Signed By: Celestine Woo, 11/18/18 1207 Provider Scribed Statement I personally performed the s ervices described in this documentation and reviewed the documentation that was dictated to the scrib e(s) in my presence, and it accurately records my words and actions. Deon Mason, 11/18/18 Portions of this section were scribed by Levy Woo on 11/18/18 at 1206 Kiarra Yang 11/19/18 1456: HPI-Sore Throat General Initial Greet Date/Time 11/18/18 1158 Physical Exam Vital Signs Vital Signs Interpretation Diagnostics Lab Results Interpretation Results Patient Discharge Departure Vital Signs/Condition Vital Signs Supervising Physician Note MidLv Saw Pt Alone I have reviewed the PA/WAD COMPRESSOR OPERATOR ADJUSTER's note and plan of valentin Kruger was available for consultation as needed at al l times during the patient's visit in the emergency department. I agree with the clinical impression , plan and disposition. Electronically Signed by Deon Mason on at 1611 Electronically Signed by Kiarra Yang MD on 0 11/19/18 at 1946 RPT #:[id number] END OF REPORT
[2023-01-26] MEDS ORDERED: NA CHLORIDE 0.9% 1,000 ML ONE (19:58)
[2023-01-26 20:16] LABS: Specific Gravity 1.019 (1.005-1.030)
[2023-01-26 20:22] LABS: Absolute Lymphocytes (CBC) 1.4 K/uL (0.7-4.9); Hematocrit 21.7 % (36.0-45.0); Lymphocytes % 13.4 % (15.3-44.8); MCV 57.5 fL (80-100); MPV 8.4 fL (7.6-11.3); RBC Red Blood Cell Count 3.78 M/uL (3.86-4.86)
[2023-01-26 20:23] LABS: Specific Gravity 1.011 (1.005-1.030); Urine Bacteria 20-50 /HPF (<20); Urine Bilirubin NEGATIVE (Negative); Urine Blood Trace (Negative); Urine Clarity Extremely Turbid (Clear); Urine Color Light-Yellow (Yellow); Urine Glucose NEGATIVE (Negative); Urine Mucus 1+ /HPF (None Seen); Urine Protein TRACE (Negative); Urine Urobilinogen Normal (Normal); Urine WBC Clump Occasional /HPF (None Seen); Urine pH 6.5 (5.0-7.0)
[2023-01-26 20:32] LABS: Albumin 2.9 g/dL (3.4-5.0); Bilirubin Total 0.3 mg/dL (0.2-1.0); Potassium 3.1 mEq/L (3.5-5.1); Protein, Total 7.6 g/dL (6.4-8.2)
[2023-01-26 20:43] LABS: SARS-CoV-2 Antigen Rapid Res Negative (Negative)
--- NOTE | 2023-01-26 20:52 | RAD REPORT ---
EXAM DESCRIPTION: [facility] Single View01/26/2023 8:18 pm CLINICAL HISTORY: SOB COMPARISON: Chest Pa And Lat (2 Views) dated 02/04/2017; CHEST SINGLE VIEW dated 08/14/2008 TECHNIQUE: Portable AP view of the chest. FINDINGS: The lungs are clear. No pneumothorax or effusion. The cardiomediastinal contours are unre markable. IMPRESSION: No acute cardiopulmonary process.
[2023-01-26 21:42] LABS: Anisocytosis 1+; Blood Morphology Comment NOTED (NOT SEEN); Hypochromasia 3+; Platelet Estimate ADEQ; White Blood Cell Scan OK (OK)
--- NOTE | 2023-01-26 22:24 | RAD REPORT ---
EXAM DESCRIPTION: CT - Stone Protocol - 01/26/2023 10:07 pm CLINICAL HISTORY: left flank pain COMPARISON: No comparisons TECHNIQUE: Thin cut axial CT imaging of the abdomen and pelvis was performed without IV contrast. Mu ltiplanar reformats were generated and reviewed. All CT scans are performed using dose optimization technique as appropriate and may include automated exposure control or mA/KV adjustment according to patient size. FINDINGS: No suspicious findings in the lung bases. The liver, spleen, adrenal glands, and pancreas show no suspicious findings. Gallbladder and biliary tree are also without suspicious finding. Enlargement of the left more than right kidney and perinephric fat stranding more prominent on the le ft. Mild left hydroureter without evidence of an obstructing calculus. Evaluation is limited in the a bsence of contrast. No dilated bowel loops or bowel wall thickening. No free air, free fluid or inflammatory stranding. D iastasis recti. No hernia, mass or bulky lymphadenopathy. The urinary bladder is suboptimally distend ed limiting evaluation. No suspicious bony findings. IMPRESSION: Left more than right kidney enlargement with perinephric fat stranding. Findings may rel ate to an ascending infection, please correlate with urinalysis results. A recently passed stone may result in some findings, although considered less likely.
--- NOTE | 2023-01-26 22:39 | EDPHYS ---
Physician Documentation [facility] Name: Ana Rosa Ferguson Age: 32 yrs Sex: Female : 1990 Arrival Date: 01/26/2023 Time: 19:02 Bed 16 Private MD: ED Physician Misha Martinez HPI: 01/26 19:12 This 32 yrs old Black Female presents to ER via Unassigned with complaints of Fever. sp4 19:12 The patient reports fever, that was measured at 103.8 degrees Fahrenheit. cp 19:12 Onset: The symptoms/episode began/occurred 1 week(s) ago. cp 19:12 Associated signs and symptoms: Pertinent positives: backache, Pertinent negatives: cp cough, diarrhea, runny nose, sinus congestion, sinus drainage, skin rash, sore throat, vomiting. 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 Historical: - PSHx: 19:34 section; kd3 - Immunization history:: Adult Immunizations up to date. - Social history:: Smoking status: unknown. ROS: 19:20 Constitutional: Negative for fever, weight loss. cp 19:20 Eyes: Negative for injury, pain, redness, and discharge. cp 19:20 ENT: Negative for drainage from ear(s), ear pain, sore throat, difficulty swallowing, difficulty handling secretions. 19:20 Cardiovascular: Negative for chest pain. 19:20 Respiratory: Negative for cough, shortness of breath, wheezing. 19:20 Abdomen/GI: Positive for abdominal pain, Negative for vomiting, diarrhea, constipation, black/tarry stool, rectal bleeding. 19:20 : Positive for flank pain, Negative for vaginal bleeding. 19:20 Neuro: Negative for altered mental status, weakness. 19:20 All other systems are negative. Exam: 19:25 Constitutional: The patient appears in no acute distress, alert, awake, non-toxic, well cp developed, well nourished. 19:25 Head/Face: Normocephalic, atraumatic. cp 19:25 Eyes: Periorbital structures: appear normal, Conjunctiva: normal, no exudate, no injection, Sclera: no appreciated abnormality, Lids and lashes: appear normal, bilaterally. 19:25 ENT: External ear(s): are unremarkable, Nose: is normal, Mouth: Lips: moist, Oral mucosa: pink and intact, moist, Posterior pharynx: is normal, airway is patent, no erythema, no exudate. 19:25 Neck: ROM/movement: is normal, is supple, without pain, no range of motions limitations, no meningismus. 19:25 Chest/axilla: Inspection: normal. 19:25 Cardiovascular: Rate: tachycardic, Rhythm: regular. 19:25 Respiratory: the patient does not display signs of respiratory distress, Respirations: normal, no use of accessory muscles, no retractions, labored breathing, is not present, Breath sounds: are clear throughout, no decreased breath sounds, no stridor, no wheezing. 19:25 Abdomen/GI: Inspection: abdomen appears normal, Bowel sounds: active, all quadrants, Palpation: soft, in all quadrants, mild abdominal tenderness, in the right lower quadrant and left lower quadrant, rebound tenderness, is not appreciated, involuntary guarding, is not appreciated. 19:25 Back: CVA tenderness, that is mild, is noted bilaterally. 19:25 Skin: no rash present. 19:25 Neuro: Orientation: to person, place \T\ time. Mentation: is normal, Cerebellar function: is grossly normal, Motor: moves all fours, strength is normal, Sensation: is normal. Vital Signs: 19:32 BP 142 / 71; Pulse 113; Resp 16; Temp 99.1; Pulse Ox 100% ; kd3 19:36 Weight 71.21 kg; Height 5 ft. 7 in. ; kd3 21:18 BP 117 / 59; Pulse 85; Resp 16; Pulse Ox 100% ; vc1 22:13 BP 130 / 74; Pulse 79; Resp 15; Pulse Ox 100% ; vc1 23:11 BP 125 / 68; Pulse 83; Resp 16; Pulse Ox 100% ; vc1 19:36 Body Mass Index 24.59 (71.21 kg, 170.18 cm) kd3 MDM: 19:13 Patient medically screened. sp4 20:00 Differential diagnosis: viral Infection, bacterial infection, pneumonia UTI, sepsis, cp chronic iron deficiency anemia. 22:38 Data reviewed: vital signs, nurses notes, lab test result(s), radiologic studies, CT cp scan, plain films. 22:38 Consideration of Admission/Observation Escalation of care including cp admission/observation considered. I considered the following discharge prescriptions or medication management in the emergency department Medications were administered in the Emergency Department. See MAR. Counseling: I had a detailed discussion with the patient and/or guardian regarding: the historical points, exam findings, and any diagnostic results supporting the discharge/admit diagnosis, lab results, radiology results, the need for outpatient follow up, a family practitioner, to return to the emergency department if symptoms worsen or persist or if there are any questions or concerns that arise at home. Response to treatment: the patient's symptoms have markedly improved after treatment. ED course: VSS. Review of records from previous visits show chronic anemia. Will discharge to home for continued monitoring. 01/26 19:13 Order name: Urinalysis W/Microscopic; Complete Time: 21:00 [facility] 01/26 21:00 Interpretation: Normal except: [facility] Extremely Turbid; UBLD Trace; UPROT TRACE; UNIT 2+; cp UESTR 500; UWBC >50; URBC 5-10; UBACT 20-50; UWBC Clump Occasional. 01/26 19:13 Order name: Test, Urine; Complete Time: 21:00 [facility] 01/26 19:13 Order name: SARS RAPID; Complete Time: 21:00 [facility] 01/26 19:13 Order name: Influenza Screen (a \T\ B); Complete Time: 21:00 [facility] 01/26 19:36 Order name: CBC with Diff; Complete Time: 22:24 01/26 21:01 Interpretation: Normal except: RBC 3.78; HGB 6.5; HCT 21.7; MCV 57.5; MCH 17.1; MCHC cp 29.7; PLT 504; RDW 20.4; FABIO% 75.7; LYM% 13.4. 01/26 19:36 Order name: CMP; Complete Time: 21:00 01/26 21:00 Interpretation: Normal except: NA 132; K 3.1; GLUC 115; GFR 85; ALB 2.9; GLOB 4.7; A/G cp 0.6. 01/26 19:36 Order name: Lipase; Complete Time: 21:00 01/26 21:01 Interpretation: Abnormal: LIP 78. 01/26 19:36 Order name: Lactate w/ 2H reflex if indic.; Complete Time: 21:00 01/26 20:45 Order name: CBC Smear Scan; Complete Time: 22:24 EDMS 01/26 20:45 Order name: Urine Culture EDMS 01/26 19:36 Order name: XRAY Chest (1 view); Complete Time: 21:00 cp 01/26 22:24 Interpretation: Report review. cp 01/26 21:06 Order name: CT Stone Protocol; Complete Time: 22:26 cp 01/26 19:36 Order name: IV Saline Lock; Complete Time: 19:55 cp 01/26 19:36 Order name: Labs collected and sent; Complete Time: 19:55 cp Administered Medications: 19:55 Drug: NS 0.9% IV 1000 ml Route: IV; Rate: 1 bolus; Site: left antecubital; vc1 21:19 Follow up: IV Status: Completed infusion; IV Intake: 1000ml vc1 23:10 Follow up: IV Status: Completed infusion; IV Intake: 1000ml vc1 22:45 Drug: Rocephin IV 1 grams Route: IV; Rate: calculated rate; Site: left antecubital; vc1 23:10 Follow up: IV Status: Completed infusion; IV Intake: 50ml vc1 23:10 Drug: Potassium PO Effervescent Tablet 50 mEq Route: PO; vc1 23:10 Follow up: Response: Medication administered at discharge. vc1 23:10 Drug: Potassium PO Effervescent Tablet 25 mEq Route: PO; vc1 23:10 Follow up: Response: Medication administered at discharge. vc1 Disposition: 01/27 07:32 Co-signature as Attending Physician, Misha Martinez MD I agree with the assessment sp4 and plan of care. I reviewed the patient's care provided by the Advanced Practice Provider and agree with the diagnosis and treatment plan. Disposition Summary: 01/26/23 22:39 Discharge Ordered Location: Home cp Problem: new cp Symptoms: have improved cp Condition: Stable cp Diagnosis - Pyelonephritis acute cp - Iron deficiency anemia, unspecified cp - Hypokalemia cp Followup: cp - With: Private Physician - When: 2 - 3 days - Reason: Recheck today's complaints Discharge Instructions: - Discharge Summary Sheet cp - Iron Deficiency Anemia, Adult cp - Iron-Rich Diet cp - Potassium Content of Foods cp - Pyelonephritis, Adult cp - Hypokalemia cp Forms: - Medication Reconciliation Form cp - Thank You Letter cp - Antibiotic Education cp - Prescription Opioid Use cp Prescriptions: - Ferrous Sulfate 325 mg (65 mg Iron) Oral Tablet - take 1 tablet by ORAL route every 12 hours; 60 tablet; Refills: 0, Product cp Selection Permitted - Ibuprofen 800 mg Oral Tablet - take 1 tablet by ORAL route every 8 hours As needed take with food; 30 tablet; cp Refills: 0, Product Selection Permitted - Potassium Chloride 10 mEq Oral capsule, extended release - take 2 tablet by ORAL route once daily; 6 tablet; Refills: 0, Product Selection cp Permitted - cefpodoxime 200 mg Oral Tablet - take 1 tablet by ORAL route every 12 hours for 10 days with food; 20 tablet; cp Refills: 0, Product Selection Permitted Signatures: Dispatcher [employer] EDMS Glen Yadav PA PA cp Doucette, Kyli RN RN kd3 Vicki Singleton RN RN vc1 Misha Martinez MD MD sp4 Corrections: (The following items were deleted from the chart) 01/26 20:51 19:37 Urinalysis+U.LAB.BRZ ordered. EDMS EDMS
--- NOTE | 2023-01-26 22:39 | ER ---
Nurse's Notes [facility] Name: Ana Rosa Ferguson Age: 32 yrs Sex: Female : 1990 Arrival Date: 01/26/2023 Time: 19:02 Bed 16 Private MD: Diagnosis: Pyelonephritis acute;Iron deficiency anemia, unspecified;Hypokalemia Presentation: 01/26 19:32 Chief complaint: Patient states: I have had a persistant fever for a week and i cannot kd3 break it. I have gotten as high as 103.8 today. I took a gram of Tylenol before I came here. Ebola Screen: No symptoms or risks identified at this time. Initial Sepsis Screen: Does the patient meet any 2 criteria? No. Patient's initial sepsis screen is negative. Does the patient have a suspected source of infection? No. Patient's initial sepsis screen is negative. Risk Assessment: Do you want to hurt yourself or someone else? Patient reports no desire to harm self or others. Onset of symptoms was January 26, 2023. 19:32 Method Of Arrival: Ambulatory kd3 19:32 Acuity: SANTI 4 kd3 19:36 Coronavirus screen: Vaccine status: Patient reports receiving the 2nd dose of the covid kd3 vaccine. Triage Assessment: 19:36 General: Appears in no apparent distress. Behavior is calm, cooperative. Pain: kd3 Complains of pain in headache. Historical: - PSHx: 19:34 section; kd3 - Immunization history:: Adult Immunizations up to date. - Social history:: Smoking status: unknown. Screenin:18 [facility] ED Fall Risk Assessment (Adult) History of falling in the last 3 months, vc1 including since admission No falls in past 3 months (0 pts) Confusion or Disorientation No (0 pts) Intoxicated or Sedated No (0 pts) Impaired Gait No (0 pts) Mobility Assist Device Used No (0 pt) Altered Elimination No (0 pt) Score/Fall Risk Level 0 - 2 = Low Risk Oriented to surroundings, Maintained a safe environment, Educated pt \T\ family on fall prevention, incl call for assistance when getting out of bed. Abuse screen: Denies threats or abuse. Nutritional screening: No deficits noted. Tuberculosis screening: No symptoms or risk factors identified. Assessment: 21:19 Reassessment: Patient and/or family updated on plan of care and expected duration. Pain vc1 level reassessed. Patient is alert, oriented x 3, equal unlabored respirations, skin warm/dry/pink. 22:14 Reassessment: Patient and/or family updated on plan of care and expected duration. Pain vc1 level reassessed. Patient is alert, oriented x 3, equal unlabored respirations, skin warm/dry/pink. 23:11 Reassessment: Patient and/or family updated on plan of care and expected duration. Pain vc1 level reassessed. Patient is alert, oriented x 3, equal unlabored respirations, skin warm/dry/pink. Patient states feeling better. Patient states symptoms have improved. Vital Signs: 19:32 BP 142 / 71; Pulse 113; Resp 16; Temp 99.1; Pulse Ox 100% ; kd3 19:36 Weight 71.21 kg; Height 5 ft. 7 in. ; kd3 21:18 BP 117 / 59; Pulse 85; Resp 16; Pulse Ox 100% ; vc1 22:13 BP 130 / 74; Pulse 79; Resp 15; Pulse Ox 100% ; vc1 23:11 BP 125 / 68; Pulse 83; Resp 16; Pulse Ox 100% ; vc1 19:36 Body Mass Index 24.59 (71.21 kg, 170.18 cm) kd3 ED Course: 19:04 Patient arrived in ED. mr 19:12 Misha Martinez MD is Attending Physician. sp4 19:21 Glen Yadav PA is PHCP. cp 19:34 Triage completed. kd3 19:36 Arm band placed on right wrist. EKG completed in triage. Results shown to MD. kd3 19:45 Patient has correct armband on for positive identification. Bed in low position. Pulse vc1 ox on. NIBP on. 19:50 Inserted saline lock: 20 gauge in left antecubital area, using aseptic technique. Blood vc1 collected. 19:55 Influenza Screen (a \T\ B) Sent. vc1 19:55 SARS RAPID Sent. vc1 19:55 Test, Urine Sent. vc1 19:55 Urinalysis W/Microscopic Sent. vc1 19:55 Lipase Sent. vc1 19:56 CMP Sent. vc1 19:56 CBC with Diff Sent. vc1 19:56 Lactate w/ 2H reflex if indic. Sent. vc1 20:20 XRAY Chest (1 view) In Process Unspecified. EDMS 22:09 CT Stone Protocol In Process Unspecified. EDMS 22:13 Vicki Singleton, RN is Primary Nurse. vc1 23:11 No provider procedures requiring assistance completed. IV discontinued, intact, vc1 bleeding controlled, No redness/swelling at site. Pressure dressing applied. Administered Medications: 19:55 Drug: NS 0.9% IV 1000 ml Route: IV; Rate: 1 bolus; Site: left antecubital; vc1 21:19 Follow up: IV Status: Completed infusion; IV Intake: 1000ml vc1 23:10 Follow up: IV Status: Completed infusion; IV Intake: 1000ml vc1 22:45 Drug: Rocephin IV 1 grams Route: IV; Rate: calculated rate; Site: left antecubital; vc1 23:10 Follow up: IV Status: Completed infusion; IV Intake: 50ml vc1 23:10 Drug: Potassium PO Effervescent Tablet 50 mEq Route: PO; vc1 23:10 Follow up: Response: Medication administered at discharge. vc1 23:10 Drug: Potassium PO Effervescent Tablet 25 mEq Route: PO; vc1 23:10 Follow up: Response: Medication administered at discharge. vc1 Medication: 21:19 VIS not applicable for this client. vc1 Intake: 21:19 IV: 1000ml; Total: 1000ml. vc1 23:10 IV: 50ml; Total: 1050ml. vc1 23:10 IV: 1000ml; Total: 2050ml. vc1 Outcome: 22:39 Discharge ordered by . cp 23:12 Discharged to home ambulatory. vc1 23:12 Condition: improved 23:12 Discharge instructions given to patient, Instructed on discharge instructions, follow up and referral plans. medication usage, Demonstrated understanding of instructions, follow-up care, medications, Prescriptions given X 3. 23:12 Patient left the ED. vc1 Signatures: Dispatcher [employer] [facility] Esperanza Joseph Glen Yadav PA PA cp Doucette, Kyli, RN RN kd3 Vicki Singleton, ARTI RN vc1 Misha Martinez MD MD sp4 Corrections: (The following items were deleted from the chart) 20:51 19:55 Urinalysis+U.LAB.BRZ drawn and sent. vc1 EDMS
[2023-01-26] MEDS ORDERED: NA CHLORIDE 0.9% 50 ML ONE (22:50)
[2023-01-26] MEDS ORDERED: CEFTRIAXONE 1000 MG/VIAL ONE (22:50)
[2023-01-26] MEDS ORDERED: POTASSIUM 25 MEQ EFFERV TAB ONE (23:11)
[2023-01-26 23:41] VITALS: O2SAT 100
[2023-01-26 23:49] VITALS: TEMP 100.1
[2023-01-26 23:52] VITALS: BP 121/80
== END 2023-01-26 23:12 | disposition home or self-care (01) ==
LOC: ER 19:02
DX: N10 Acute pyelonephritis (principal); D50.9 Iron deficiency anemia, unspecified; E87.6 Hypokalemia
CPT/HCPCS: 36415; 71045; 74176; 76377; 80053; 81001; 81025; 83605; 83690; 85025; 87086; 87088; 87804; 87811; 96361; 96365; 99284; J0696; J7030

== ENCOUNTER 2023-07-03 02:10 | Emergency (ER) | payer OTHER ==
--- OUTSIDE RECORDS SUMMARY | 2023-07-03 02:13 | XMS REPORT | Continuity of Care Document ---
:1990 Author Organization [facility] t Address [address] [place] [address] [place] [id number] Care Team Providers Name Role Phone PCP, PATIENT DOES NOT HAVE A Primary Care Physician Unavaila HARVEY Willuoghby Attending Clinician Unavailable Harvey Mace Attending Clinician Nurse, Adc Pob Immunization Attending Clinician Unavailable José Manuel Becerril DO Attending Clinician JOSÉ MANUEL BECERRIL Attending Clinician Unavailable DAMIR JONES Attending Clinician Unavailable STEFANY BROWN Attending Clinician Unavailable MARIBEL SORIA Attending Clinician Unavailable HECTOR BARRAZA Attending Clinician Unavailable Payers Payer Name Policy Type Policy Number Effective Date Expiration Date S [facility] [id number] 2022 HEALTHCARE 00:00:00 [facility] [id number] 2020 00:00:00 Problems Condition Condition Condition Status [...] Allergie 4-10 Clear s 00:00: [place] 00 [facility] No Known DA Active U 2013- [facility] Allergie -08 Clear s 00:00: [place] 00 [facility] NO KNOWN Drug Active Univers ALLERGIE Class ity of S [facility] Social History Social Habit Start Date Stop Date Quantity Comments Source Exposure to 2022-09-21 2022-10-01 Not sure [facility] SARS-CoV-2 00:00:00 23:41:00 [facility] (event) Branch Alcohol intake 2022-10-01 2022-10-01 0 /d University of 00:00:00 00:00:00 [facility] Tobacco Comment 2016-03-19 2016-03-19 Smoked x 1 since Uni versity of 00:00:00 00:00:00 delivery [facility] History of 2012-10-09 Cigarette Smoker Universi ty of tobacco use 00:00:00 [facility] Sex Ass[birth year] At [birth year] Universit y of 00:00:00 00:00:00 [facility] Smoking Status Start Date Stop Date Source Ex-smoker 2016-03-19 00:00:00 2016-03-19 00:00:00 Universi ty of [facility] Medications Ordered Filled Start Stop Current Ordering Indication Dosage Frequency Signature Comments Components Source Medication Medication Date Date Medication? Clinician (SIG) Name Name predniSONE 2022- No 40mg 40 mg, Univ ers (DELTASONE) 10-02 Oral, ity of tablet 40 06:15: 06:14 [place] dose, On Medical Wed Branch 10/02/22 at 0015, FIONA predniSONE 2022- No [id number] 40mg Take 2 Univers 20 mg 10-02 tablets by ity of tablet 00:00: 05:59 mouth in [place] 00 :00 the Medical morning Branch for 7 days. Yes 1{tbl} Take 1 Unive rs vitamin 8-04 tablet by ity of w/FA 00:00: mouth [place] (PRENATABS 00 daily. Medical RX) tablet Branch docusate Yes 240mg Take 1 Univer s calcium 8-04 capsule by ity of (SURFAK) 00:00: mouth once Ap as 240 mg 00 daily as Medical capsule needed for Branch Constipati on. ferrous 2016-0 Yes 325mg Take 1 Univers sulfate 325 8-04 tablet by ity of mg (65 mg 00:00: mouth 2 [place] iron) 00 (two) Medical tablet times Branch daily. ibuprofen 0 Yes 600mg Take 1 Unive rs (MOTRIN) [...] hours for all acetaminop hen containing products. Yes 1{tbl} Take 1 Unive rs vitamin 8-04 tablet by ity of w/FA 00:00: mouth [place] (PRENATABS 00 daily. Medical RX) tablet Branch docusate Yes 240mg Take 1 Univer s calcium 8-04 capsule by ity of (SURFAK) 00:00: mouth once Ap as 240 mg 00 daily as Medical capsule needed for Branch Constipati on. ferrous 0 Yes 325mg Take 1 Univers sulfate 325 8-04 tablet by ity of mg (65 mg 00:00: mouth 2 [place] iron) 00 (two) Medical tablet times Branch daily. ibuprofen 0 Yes 600mg Take 1 Unive rs (MOTRIN) [...] for all acetaminop hen containing products. PRENATE Yes Univers MINI, FERR 6-11 ity of ASP GLYCIN, 00:00: [place] 18-1-350 mg 00 Medical Cap Branch PRENATE Yes Univers MINI, FERR 6-11 ity of ASP GLYCIN, 00:00: [place] 18-1-350 mg 00 Medical Cap [facility] Vital Signs Vital Name Observation Time Observation Value Comments Source Systolic blood 2022-10-02 05:40:00 113 mm[Hg] Univer sity of [facility] Diastolic blood 2022-10-02 05:40:00 71 [facility]Hg[facility] 2022-10-02 05:40:00 116 /min [facility] Body temperature 2022-10-02 05:40:00 37.22 Fernanda [facility] Respiratory rate 2022-10-02 05:40:00 16 /min [facility] acute hospital Body height 2022-10-02 05:40:00 170.2 cm [facility] Body weight 2022-10-02 05:40:00 68.04 kg [facility] BMI 2022-10-02 05:40:00 23.49 kg/m2 [facility] Oxygen saturation in 2022-10-02 05:40:00 100 /min [facility] Arterial blood by [facility] Pulse oximetry Branch Procedures Procedure Date / Time Performed Performing Clinician Sour e NOTICE OF PRIVACY 2022-10-02 05:36:23 Doctor Unassigned, No Univ [facility] PRACTICES Name [facility] CONSENT/REFUSAL FOR 2022-10-02 05:35:56 Doctor Unassigned, No [facility] [place] DIAGNOSIS AND Name Medical [facility] TREATMENT SARS-COV-2 COVID-19 2021-08-21 15:01:17 Doctor Unassigned, No [facility],IM Name [facility] (PFIZER) Encounters Start End Encounter Admission Attending Care Care Encounter Source Date/Time Date/Time Type Type Clinicians Facility Department ID 2022-10-01 2022-10-02 Emergency X LÓPEZ, [facility] ERT [id number] Univers 23:43:00 00:30:00 HARVEY khanna adry [facility] 2022-10-01 2022-10-02 Emergency López, [facility] [id number] Univers 23:43:00 00:30:00 Harvey LYNN [id number] ity [id number] [facility] 084 Pearson 2021-08-21 2021-08-21 Imm/Inj Nurse, Adc Pob Immunization [facility] [id number] Univers 09:30:00 09:30:00 Visit José Manuel Becerril [id number] .10 ity [facility] [id number] [facility] [id number] K[place] dical NAL 421 [facility] 2021-08-21 2021-08-21 Outpatient R DANIELLA [facility] [id number] Univers 09:30:00 08:59:13 JOSÉ MANUEL [facility] [place] 2020-12-25 2020-12-25 Outpatient Jelani BECERRIL [facility] [id number] Univers 08:30:00 08:28:56 JOSÉ MANUEL adry [facility] 2020-12-05 2020-12-05 Outpatient R ROBERT [facility] [id number] Univers 08:40:00 08:22:48 DAMIR [facility] [place] 2020-09-18 2020-09-18 Outpatient R KEVIN [facility] [id number] Univers 13:00:00 13:00:00 STEFANY [id number] ity o f [facility] 2020-08-23 2020-08-23 Outpatient R [facility] [id number] Univers 08:30:00 08:30:00 [id number] [facility] [place] 2020-08-23 2020-08-23 Outpatient R ESTELLA [facility] [id number] Univers 08:30:00 08:30:00 MARIBEL ity of [facility] 2020-06-29 2020-06-29 Outpatient R MADI [facility] [id number] Univers 14:30:00 14:30:00 HECTOR [id number] ity o f [facility] Results This patient has no known results. Notes Date/Time Note Provider Source 2018-11-18 12:06:00 [id number]:06:00 [facility] ([facility])EMERGENCY PROVIDER REPORTREPORT#:[id number] REPORT STATUS: SignedDATE:11/18/18 TIME: 1206 PATIENT: MARLON FREEMAN UNIT #: [id number]#: [id number] ROOM/BED:AGE: 28 SEX: F PCP PHYS: N o Primary or Family PhysicianSERVICE AUTHOR: Deon Mason * ALL edits or amendments must be made on the electronic/computer document * HPI-Sore Throat GeneralConfirmed Patient YesInitial Greet Date/Time 11/18/18 1158 PresentationChief Complaint Sore throat, Pain with swallowingHx Obtained From PatientOnset Occurred YesterdaySymptom Duration Since onsetProgression since Onset Gradually worsening Free Text HPI NotesFree Text HPI Notes28 y/o F w/ no PMHx presents to the ED w/ c/o progressive sore throa t starting yesterday. She reports MENDOZA earache bilat in assoc w/ sx. She denies F/C or cough. No further complaints. Portions of this section wer e scribed by Celestine Woo on 11/18/18 at 1216 Review of Systems ROS StatementsAll systems rev neg except as marked. Focused Review of SystemsConstitutionalDenies: Chills, Fever. Ears/Nose/ThroatReports: Earache bilat, Sore throat. NeurologicReports: Headache. Portions of this section were scribed by Celestine Woo on 11/18/18 at 1216 Past Medical History - AdultStated Complaint SORE THROATAllergiesCoded Allergies:No Known Allergies (11/18/18) Home MedicationsReported MedicationsNo Known Home Medications Pt reports no significant: Past medical history, Past surgical historySmoking status for patients 13 years old or older: Never SmokerOther Social History Local resident Portions of this section were scribed by Celestine Woo on 11/18/18 at 1215 Physical Exam Vital SignsVital SignsFirst Documented: Result Date Time Pulse Ox 100 04 1205 B/P 119/81 / 1205 B/P Mean 93 04/ 1205 O2 Delivery Room air 11/18 1205 Temp 37.1 04 1205 Pulse 92 11/18 1205 Resp 16 11/18 1205 Last Documented : Result Date Time Pulse Ox 100 11/18 1205 B/P 119/81 / 1205 B/P Mean 93 / 1205 O2 Delivery Room air 11/18 1205 Temp 37.1 11/18 120 5 Pulse 92 11/18 1205 Resp 16 11/18 1205 Review of Vital Signs Reviewed Focused PEGeneral/Const General/Const Awake, Alert, Well developed, CooperativeEars/Nose/Throat Ears/Nose/Throat Airway patent, Mucous membranes moist, No peritonsillar abscess Text/Dict NotesBL tonsilla r exudate erythema, uvula midlineMS Neck Neck Supple, No meningismus, Full range of motion, No swelling, Non-tender, No midline vertebral tend Text/Dict Notesanterior cervical lymphadenopathyResp/Chest Respiratory/Chest Breath sounds NL, No respiratory distress, No rales, No rhonchi, No wheezingCardiovascular Cardiovascular Heart rate NL, Regular rhythm, Heart sounds NLSkin Skin Warm, Dry, IntactNeurologic Neurologic Oriented X3, Speech NL Additional PEMS Head Head Atraumatic, Normocephalic Portions of this section were scribed by Celestine Woo on 11/18/18 at 1216 Interpretation Diagnostics Lab Results InterpretationResultsMicrobiology: Date/Time Procedure - Status Source Growth 11/19 1207 Grou p A Streptococcus Screen (JOANN) - RES THROAT 11/18 120 Streptococcus Culture - RES THROAT Point of Care TestingPulse Oximetry Pulse Ox % 100 On: Room air Interpretation Interpreted by me, Pulse oximetry normal Time 1205 Portions of this section were scribed by Celestine Woo on 9 at 1216 Re-Evaluation MDM Free Text MDM NotesFre e Text MDM Notespatient with history concerning fo r bacterial tonsilitiswill need abx to treatshe denies chest pain or coughnon toxic here in ed Patient Discharge Departure Vital Signs/ConditionVital SignsFirst Documented: Result Date Time Pulse Ox 100 04/10 1205 B/P 119/81 04/10 1205 B/P Mean 93 04/10 1205 O2 Delivery Room air 04/10 1205 Temp 37.1 04/10 120 5 Pulse 92 04/10 1205 Resp 16 04/10 1205 Last Documented: Result Date Time Pulse Ox 100 04/10 1205 B/P 119/81 04/10 1205 B/P Mean 93 04/10 120 5 O2 Delivery Room air 04/10 1205 Temp 37.1 04/10 1205 Pulse 92 04/10 1205 Resp 16 /10 1205 All vital signs available at the time of this entry have been reviewed. Condition Stable Clinical ImpressionClinical ImpressionPrimary Impression: Pharyngitis Disposition DecisionDischarge )( Discharged to Home Yes )( Time 1216 )( Date 11/18/18 Discharge/Care PlanCounseled Regarding Diagnosis, Prescriptions, Need for follow-up, When to returnto EDPrescriptionsAugmentinPrednisone Quality MeasuresPharyngitis Testing Antibiotic prescribed, Group A Strep test doc Supervising Physician Note Scribe StatementCelestine Woo, 11/18/18 1207, scribing for and in the presence of TINA Darling.Signed By: Celestine Woo, 11/18/18 1207 Provider Scribed StatementI personally performed the services described in this documentation and reviewedthe documentation that was dictated to the scribe(s) in my presence, and it accurately records my words and actions. Deon Mason, 11/18/18 Portions of this section were scribed by Celestine Woo on 11/18/18 at 1206 at 1611RPT #:[id number] OF REPORTEDEmergen department [id number]:06:[id number] a ilable for patient [id number]:11:50 2018-11-18 12:06:00 [id number]:06:00 [facility] ([facility])EMERGENCY PROVIDER REPORTREPORT#:[id number] REPORT STATUS: SignedDATE:11/18/18 TIME: 1206 PATIENT: MARLON FREEMAN UNIT #: [id number]#: [id number] ROOM/BED:AGE: 28 SEX: F PCP PHYS: N o Primary or Family PhysicianSERVICE AUTHOR: Deon Mason * ALL edits or amendments must be made on the electronic/computer document * Deon Mason 11/18/18 1206:HPI-Sore Throat GeneralConfirmed Patient Yes PresentationChief Complaint Sore throat, Pain with swallowingHx Obtained From PatientOnset Occurred YesterdaySymptom Duration Since onsetProgression since Onset Gradually worsening Free Text HPI NotesFree Text HPI Notes28 y/o F w/ no PMHx presents to the ED w/ c/o progressive sore throat starting yesterday. She reports MENDOZA earache bilat in assoc w/ sx. She denies F/C or cough. No further complaints. Portions of this section were scribed by Celestine Woo on 11/18/18 at 1216 Review of Systems ROS StatementsAll systems rev neg except as marked. Focused Review of SystemsConstitutionalDenies: Chills, Fever. Ears/Nose/ThroatReports: Earache bilat, Sore throat. NeurologicReports: Headache. Portions of this section were scribed by Celestine Woo on 11/18/18 at 1216 Past Medical History - AdultStated Complaint SORE THROATAllergiesCoded Allergies:No Known Allergies (11/18/18) Home MedicationsReported MedicationsNo Known Home Medications Pt reports no significant: Past medical history, Past surgical historySmoking status for patients 13 years old or older: Never SmokerOther Social History Local resident Portions of this section were scribed by Celestine Woo on 11/18/18 at 1215 Physical Exam Vital SignsVital SignsFirst Documented: Result Date Time Pulse Ox 100 11/18 1205 B/P 119/81 11/18 1205 B/P Mean 93 11/18 1205 O2 Delivery Room air 11/18 1205 Temp 37.1 11/18 1205 Pulse 92 11/18 1205 Resp 16 11/18 1205 Last Documented : Result Date Time Pulse Ox 100 11/18 1205 B/P 119/81 11/18 1205 B/P Mean 93 11/18 1205 O2 Delivery Room air 11/18 1205 Temp 37.1 11/18 1205 Pulse 92 11/18 1205 Resp 16 11/18 1205 Review of Vital Signs Reviewed Focused PEGeneral/Const General/Const Awake, Alert, Well developed, CooperativeEars/Nose/Throat Ears/Nose/Throat Airway patent, Mucous membranes moist, No peritonsillar abscess Text/Dict NotesBL tonsillar exudate erythema, uvula midlineMS Neck Neck Supple, No meningismus, Full range of motion, No swelling, Non-tender, N o midline vertebral tend Text/Dict Notesanterior cervical lymphadenopathyResp/Chest Respiratory/Chest Breath sounds NL, No respiratory distress, No rales, No rhonchi, No wheezingCardiovascular Cardiovascular Heart rate NL, Regular rhythm, Heart sounds NLSkin Skin Warm, Dry, IntactNeurologic Neurologic Oriented X3, Speech NL Additional PEMS Head Head Atraumatic, Normocephalic Portions of this section were scribed by Celestine Woo on 9 at 1216 Interpretation Diagnostics Lab Results InterpretationResultsMicrobiology: Date/Time Procedure - Status Source Growth 11/19 1207 Grou p A Streptococcus Screen (JOANN) - RES THROAT 11/19 1207 Streptococcus Culture - RES THROAT Point of Care TestingPulse Oximetry Pulse Ox % 100 On: Room air Interpretation Interpreted by ky, Pulse oximetry normal Time 1205 Portions of this section were scribed by Celestine Woo on 9 at 1216 Re-Evaluation MDM Free Text MDM NotesFre e Text MDM Notespatient with history concerning fo r bacterial tonsilitiswill need abx to treatshe denies chest pain or coughnon toxic here in ed Patient Discharge Departure Vital Signs/ConditionVital SignsFirst Documented: Result Date Time Pulse Ox 100 11/18 1205 B/P 119/81 11/18 1205 B/P Mean 93 11/18 1205 O2 Delivery Room air 11/18 1205 Temp 37.1 11/18 1205 Pulse 92 11/18 1205 Resp 16 11/18 1205 Last Documented: Result Date Time Pulse Ox 100 11/18 1205 B/P 119/81 11/18 1205 B/P Mean 93 11/18 120 5 O2 Delivery Room air 11/18 1205 Temp 37.1 11/18 1205 Pulse 92 11/18 1205 Resp 16 11/18 1205 All vital signs available at the time of this entry have been reviewed. Condition Stable Clinical ImpressionClinical ImpressionPrimary Impression: Pharyngitis Disposition DecisionDischarge )( Discharged to Home Yes )( Time 1216 )( Date 11/18/18 Discharge/Care PlanCounseled Regarding Diagnosis, Prescriptions, Need for follow-up, When to returnto EDPrescriptionsAugmentinPrednisone Quality MeasuresPharyngitis Testing Antibiotic prescribed, Group A Strep test doc Supervising Physician Note Scribe StatementCelestine Woo, 11/18/18 1207, scribing for and in the presence of TINA Darling.Signed By: Celestine Woo, 11/18/18 1207 Provider Scribed StatementI personally performed the services described in this documentation and reviewedthe documentation that was dictated to the scribe(s) in my presence, and it accurately records my words and actions. Deon Mason, 11/18/18 Portions of this section were scribed by Celestine Woo on 11/18/18 at 1206 Kiarra Yang 11/19/18 1456:HPI-Sore Throat GeneralInitial Greet Date/Time 11/18/18 1158 Physical Exam Vital SignsVital Signs Interpretation Diagnostics Lab Results InterpretationResults Patient Discharge Departure Vital Signs/ConditionVital Signs Supervising Physician Note MidLv Saw Pt AloneI have reviewed the PA/HOD CARRIER's note and plan of care. I was available for consultation as needed at al l times during the patient's visit in the emergenc y department. I agree with the clinical impression , plan and disposition. at 1611 at 1456RPT #:[id number] OF REPORTEDEmergency department [id number]:06:[id number] alize smith for patient [id number]:56:48
[2023-07-03 02:35] LABS: Absolute Lymphocytes (CBC) 1.6 K/uL (0.7-4.9); Hematocrit 30.3 % (36.0-45.0); Lymphocytes % 8.7 % (15.3-44.8); MCV 60.3 fL (80-100); MPV 8.2 fL (7.6-11.3); Platelets 214 thou/uL (152-406); RBC Red Blood Cell Count 5.02 M/uL (3.86-4.86)
[2023-07-03] MEDS ORDERED: ONDANSETRON 4 MG/2 ML VIAL ONE (02:49)
[2023-07-03] MEDS ORDERED: NALOXONE HCL 2 MG/2 ML VIAL ONE (02:49)
[2023-07-03] MEDS ORDERED: NA CHLORIDE 0.9% 1,000 ML ONE ×2 (02:49→06:19)
[2023-07-03] MEDS ORDERED: LIDOCAINE 1% MPF 30 ML VIAL ONE (02:50)
[2023-07-03] MEDS ORDERED: TDAP (DIPHTH,PERTUSS(ACELL),TET VAC) 0.5 ML VIAL IMVAC ONE (02:50)
[2023-07-03 02:55] LABS: Protime INR 1.77
[2023-07-03 03:15] LABS: ALT/SGPT 14 U/L (13-56); AST/SGOT 19 U/L (15-37); Albumin 3.4 g/dL (3.4-5.0); Alkaline Phosphatase 47 U/L (45-117); BUN Blood Urea Nitrogen 14 mg/dL (7-18); Bicarbonate 23 mEq/L (21-32); Bilirubin Direct 0.2 mg/dL (0-0.2); Bilirubin Indirect, Calculated 0.4 mg/dL (0.2-0.8); Bilirubin Total 0.6 mg/dL (0.2-1.0); Glomerular Filtration Rate 55 ml/min (=/>90); Glucose Level 127 mg/dL (74-106); Potassium 2.7 mEq/L (3.5-5.1); Protein, Total 8.3 g/dL (6.4-8.2); Sodium Level 131 mEq/L (136-145)
[2023-07-03] MEDS ORDERED: POTASSIUM CL SA 10 MEQ TAB PO ONE (03:45)
[2023-07-03 04:43] LABS: Blood Morphology Comment NOTED (NOT SEEN); Platelet Estimate ADEQ
[2023-07-03 04:44] LABS: Hypochromasia 1+
--- NOTE | 2023-07-03 07:25 | ER ---
Nurse's Notes [facility] Name: Ana Rosa Ferguson Age: 33 yrs Sex: Female : 1990 Arrival Date: 07/03/2023 Time: 02:10 Bed 5 Private MD: Diagnosis: Duration, fall at home, acute intoxication Presentation: 07/03 02:30 Chief complaint: EMS states: Pt went to her grandmothers house. Fell twice upon jb4 entering the house, got back up by herself, went to the bathroom and fell again and did not get back up. Coronavirus screen: At this time, the client does not indicate any symptoms associated with coronavirus-19. Ebola Screen: No symptoms or risks identified at this time. Initial Sepsis Screen: Does the patient meet any 2 criteria? No. Patient's initial sepsis screen is negative. Does the patient have a suspected source of infection? No. Patient's initial sepsis screen is negative. Risk Assessment: Do you want to hurt yourself or someone else? Patient reports no desire to harm self or others. Onset of symptoms was July 03, 2023. 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: [employer]; Exp: Sat Jan 01 2025; Lot #: [id number]; Series: 1 of 1; Patient Consent: Obtained; Date/Time: ; Source Name: Ana Rosa Ferguson; Source Relationship: Self; Address Information: [address] [place] [address]; ; Education: Provided; VIS Presented Date: ; VIS Publication: Tetanus/Diphtheria/Pertussis (Tdap/Td) VIS 09/03/2011 (historic) 03:42 Potassium Chloride PO 40 mEq jb4 02:51 Naloxone IVP 2 mg jb4 02:51 NS 0.9% IV 1000 ml jb4 02:51 Ondansetron IVP 4 mg jb4 - Social history:: Patient/guardian denies using alcohol, street drugs, IV drugs, caffeine, over the counter diet medications, tobacco products. - Family history:: not pertinent. Screenin:30 [facility] ED Fall Risk Assessment (Adult) History of falling in the last 3 months, jb4 including since admission No falls in past 3 months (0 pts) Confusion or Disorientation No (0 pts). Abuse screen: Denies threats or abuse. Nutritional screening: No deficits noted. Tuberculosis screening: No symptoms or risk factors identified. Assessment: 02:30 General: Appears in no apparent distress. comfortable, Behavior is calm, cooperative, jb4 appropriate for age. Pain: Denies pain. Neuro: Level of Consciousness is awake, lethargic, Oriented to person, place, situation. Cardiovascular: Patient's skin is warm and dry. Respiratory: Airway is patent Respiratory effort is even, unlabored, Respiratory pattern is regular, symmetrical. GI: No signs and/or symptoms were reported involving the gastrointestinal system. : No signs and/or symptoms were reported regarding the genitourinary system. EENT: No signs and/or symptoms were reported regarding the EENT system. Derm: Skin is intact, Skin is pink, warm \\T\\ dry. Musculoskeletal: Circulation, motion, and sensation intact. Range of motion: intact in all extremities. 04:17 Reassessment: Patient appears in no apparent distress at this time. Patient and/or jb4 family updated on plan of care and expected duration. Pain level reassessed. Patient is alert, oriented x 3, equal unlabored respirations, skin warm/dry/pink. 05:33 Reassessment: Pt is resting in bed with eyes closed, respirations are even and jb4 unlabored with no s/s of pain or distress noted. 07:27 Reassessment: Patient appears in no apparent distress at this time. Patient and/or ph family updated on plan of care and expected duration. Pain level reassessed. Dr Martinez at bedside for lacertion repair. Overdose: 07:00 [place] Suicide Severity Screening: "In the past month, have you wished you were kc6 or wished you could go to sleep and not wake up?" Patient responds "no." "In the past month, have you actually had any thoughts of killing yourself?" Patient responds "no." "In your lifetime, have you ever done anything, started to do anything, or prepared to do anything to end your life?" Patient responds "no.". Vital Signs: 02:30 BP 115 / 70; Pulse 118; Resp 16; Pulse Ox 99% on 4 lpm NC; jb4 04:17 BP 121 / 76; Pulse 100; Resp 16; Pulse Ox 100% on R/A; jb4 05:33 BP 123 / 70; Pulse 106; Resp 16; Pulse Ox 97% on R/A; jb4 07:31 BP 117 / 96; Pulse 115; Resp 18 S; Pulse Ox 100% on R/A; kc6 ED Course: 02:11 Patient arrived in ED. jj6 02:12 Misha Martinez MD is Attending Physician. sp4 02:21 Hermes Bolden, ARTI is Primary Nurse. jb4 02:30 Patient has correct armband on for positive identification. Bed in low position. Call jb4 light in reach. Side rails up X 1. Client placed on continuous cardiac and pulse oximetry monitoring. NIBP monitoring applied. nurse monitoring on. 02:30 Inserted saline lock: 22 gauge in right hand, using aseptic technique. jb4 02:33 Triage completed. jb4 02:33 Arm band placed on right wrist. jb4 02:43 CT Head Brain wo Cont In Process Unspecified. EDMS 07:00 Report received from ARTI Galeana. kc6 08:09 No provider procedures requiring assistance completed. IV discontinued, intact, kc6 bleeding controlled, No redness/swelling at site. Pressure dressing applied. Administered Medications: 02:51 Drug: Naloxone IVP 2 mg IVP once Route: IVP; Site: right hand; jb4 02:51 Drug: NS 0.9% IV 1000 ml IV at 1 bolus Per protocol; 1000 mL bolus Route: IV; Rate: 1 jb4 bolus; Site: right hand; 02:51 Drug: Ondansetron IVP 4 mg IVP once; over 2 minutes Route: IVP; Site: right hand; jb4 03:42 Drug: Tetanus-Diphtheria Toxoid IM Adult 0.5 ml IM once; Provide Vaccine Information jb4 Statement (VIS). 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: [employer]; Exp: Sat Jan 01 2025; Lot #: [id number]; Series: 1 of 1; Patient Consent: Obtained; Date/Time: ; Source Name: Ana Rosa Ferguson; Source Relationship: Self; Address Information: [address] [place] [address], [place] [address]; ; Education: Provided; VIS Presented Date: ; VIS Publication: Tetanus/Diphtheria/Pertussis (Tdap/Td) VIS 09/03/2011 (historic)} Route: IM; Site: right deltoid; 03:42 Drug: Potassium Chloride PO 40 mEq PO once Route: PO; jb4 06:07 Drug: NS 0.9% IV 1000 ml IV at 1 bolus Per protocol; 1000 mL bolus Route: IV; Rate: 1 jb4 bolus; Site: right hand; 07:49 Follow up: Response: No adverse reaction; IV Status: Completed infusion; IV Intake: kc6 1000ml 07:28 Drug: Lidocaine Infiltration (1 %) 20 ml 20 ml Infiltration once; to bedside Volume: 20 ph ml; Route: Infiltration; Medication: 02:30 VIS not applicable for this client. jb4 Intake: 07:49 IV: 1000ml; Total: 1000ml. kc6 Outcome: 07:24 Discharge ordered by . sp4 08:09 Discharged to home via wheelchair, with family, kc6 08:09 Condition: improved 08:09 Discharge instructions given to patient, family, Instructed on discharge instructions, follow up and referral plans. Demonstrated understanding of instructions, follow-up care, 08:09 Patient left the ED. kc6 Signatures: Dispatcher [employer] EDAngelica Guerrero RN RN ph Bryson, James, RN RN jb4 Norma Serrano Kaitlyn, RN RN kc6 Misha Martinez MD MD sp4
--- NOTE | 2023-07-03 07:25 | EDPHYS ---
Physician Documentation [facility] Name: Ana Rosa Ferguson Age: 33 yrs Sex: Female : 1990 Arrival Date: 07/03/2023 Time: 02:10 Bed 5 Private MD: ED Physician Misha Martinez HPI: 07/03 02:14 This 33 yrs old Black Female presents to ER via Unassigned with complaints of Overdose. sp4 03:18 33-year-old female presents with several falls at home and altered mental status sp4 secondary to possible overdose. On arrival patient is not able to provide any coherent history or review of systems. EMS reports patient possibly overdosed on all. She was given intramuscular Narcan which brought about awakening. . Historical: - Allergies: 02:33 No Known Allergies; jb4 - PMHx: 02:33 None; jb4 - PSHx: 02:33 section; jb4 - Social history:: Patient/guardian denies using alcohol, street drugs, IV drugs, caffeine, over the counter diet medications, tobacco products. - Family history:: not pertinent. ROS: 03:19 Constitutional: Negative for fever, chills, and weight loss, sp4 03:19 All other systems are negative, 03:19 Unable to obtain ROS due to altered mental status, Exam: 03:17 ECG was reviewed by the Attending Physician. 0 242 reveals sinus tachycardia at a rate sp4 of 118, biatrial enlargement, no ST elevation or depression, otherwise unremarkable EKG 03:19 Constitutional: This is a well developed, well nourished patient who is awake, alert, sp4 and in no acute distress. Patient appears intoxicated has pinpoint pupils but is arousable with sternal rub. Multiple areas of eczema Head/Face: Normocephalic, atraumatic. Eyes: Pupils equal round and reactive to light, extra-ocular motions intact. Lids and lashes normal. Conjunctiva and sclera are not injected. Cornea within normal limits. Periorbital areas with no swelling, redness, or edema. ENT: Nares patent. No nasal discharge, no septal abnormalities noted. Tympanic membranes are normal and external auditory canals are clear. Oropharynx with no redness, swelling, or masses, exudates, or evidence of obstruction, uvula midline. Mucous membranes moist. Neck: Trachea midline, no thyromegaly or masses palpated, and no cervical lymphadenopathy. Supple, full range of motion without nuchal rigidity, or vertebral point tenderness. Chest/axilla: Normal chest wall appearance and motion. Nontender with no deformity. No lesions are appreciated. Cardiovascular: Regular rate and rhythm with a normal S1 and S2. No gallops, murmurs, or rubs. Normal PMI, no JVD. No pulse deficits. Respiratory: Lungs have equal breath sounds bilaterally, clear to auscultation and percussion. No rales, rhonchi or wheezes noted. No increased work of breathing, no retractions or nasal flaring. Abdomen/GI: Soft, non-tender, with normal bowel sounds. No distension or tympany. No guarding or rebound. No evidence of tenderness throughout. Back: No spinal tenderness. No costovertebral tenderness. Skin: Warm, dry with normal turgor. Normal color with no rashes, no lesions, and no evidence of cellulitis. MS/ Extremity: Pulses equal, no cyanosis. Neurovascular intact. Full, normal range of motion. Neuro: Somnolent but arousable GCS 14, patient is confused,, oriented to self and location only patient is intoxicated exam as incomplete but no gross lateralizing neurologic deficits on exam. Vital Signs: 02:30 BP 115 / 70; Pulse 118; Resp 16; Pulse Ox 99% on 4 lpm NC; jb4 04:17 BP 121 / 76; Pulse 100; Resp 16; Pulse Ox 100% on R/A; jb4 05:33 BP 123 / 70; Pulse 106; Resp 16; Pulse Ox 97% on R/A; jb4 07:31 BP 117 / 96; Pulse 115; Resp 18 S; Pulse Ox 100% on R/A; kc6 Laceration: 07:21 Wound Repair of 3cm ( 1.2in ) subcutaneous laceration to outer aspect of right eyebrow sp4 and right supraorbital ridge. Linear shaped.. Distal neuro/vascular/tendon intact. Anesthesia: Wound infiltrated with 5 mls of 1% lidocaine. Wound prep: Simple cleansing by pa, Copious irrigation. Skin closed with 7 5-0 Prolene using interrupted sutures and sterile technique. Dressed with left to air . Patient tolerated well. MDM: 02:14 Patient medically screened. sp4 06:30 Differential diagnosis: Ingestion/exposure to hypoglycemia, closed head injury, intracranial hemorrhage. Data reviewed: vital signs, nurses notes, EMS record, old medical records, lab test result(s), EKG, radiologic studies, CT scan. Consideration of Admission/Observation Escalation of care including admission/observation considered. 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 An individualized dose optimization technique, Automated Exposure Control, was utilized for the performed procedure. Brain parenchyma as well as the luo and white matter differentiation demonstrate to be unremarkable. There is no evidence for acute intraparenchymal hemorrhage. There is no midline shift and/or mass effect. No focal areas of hypodensities. Lateral ventricles and cisterns displace normal appearance. No intra or extra axial fluid collections were seen. The calvarium demonstrate to be intact with no evidence for acute bony injuries. The visualized portions of the paranasal sinuses and orbits demonstrate to be clear. IMPRESSION: No evidence for acute traumatic injury to the head. . 07/03 02:13 Order name: Acetaminophen; Complete Time: 03:16 [facility] 07/03 02:13 Order name: Basic Metabolic Panel; Complete Time: 03:16 4 07/03 02:13 Order name: CBC with Diff; Complete Time: 05:52 [facility] 07/03 02:13 Order name: ETOH Level; Complete Time: 03:16 [facility] 07/03 02:13 Order name: Hepatic Function; Complete Time: 03:16 [facility] 07/03 02:13 Order name: PT-INR; Complete Time: 03:16 4 07/03 02:13 Order name: Test, Urine; Complete Time: 07:52 [facility] 07/03 02:13 Order name: Ptt, Activated; Complete Time: 03:16 [facility] 07/03 02:13 Order name: Salicylate; Complete Time: 03:52 [facility] 07/03 02:13 Order name: Urinalysis w/ reflexes; Complete Time: 07:52 [facility] 07/03 02:13 Order name: Urine Drug Screen; Complete Time: 07:57 [facility] 07/03 02:38 Order name: Manual Differential; Complete Time: 05:52 EDMS 07/03 02:13 Order name: CT Head Brain wo Cont sp4 07/03 02:13 Order name: EKG; Complete Time: 02:14 sp4 07/03 02:13 Order name: EKG - Nurse/Tech; Complete Time: 02:51 sp4 07/03 02:13 Order name: IV Saline Lock; Complete Time: 02:21 sp4 07/03 02:13 Order name: Labs collected and sent; Complete Time: 02:21 sp4 07/03 02:13 Order name: Suicide Screening ([place]); Complete Time: 07:09 sp4 07/03 02:14 Order name: Dressing - Wound; Complete Time: 03:26 sp4 07/03 02:14 Order name: Gloves, Sterile; Complete Time: 03: sp4 07/03 02:14 Order name: Setup Suture Tray; Complete Time: 03: sp4 EC:17 Rate is 118 beats/min. Rhythm is regular, Sinus tachycardia. QRS [place] is Normal. [place] sp4 interval is normal. QRS interval is normal. QT interval is normal. No Q waves. T waves are Inverted in leads III, aVF, V3, V4, V5, V6. No ST changes noted. Clinical impression: No evidence of ischemia. Interpreted by me. Reviewed by me. Administered Medications: 02:51 Drug: Naloxone IVP 2 mg IVP once Route: IVP; Site: right hand; jb4 02:51 Drug: NS 0.9% IV 1000 ml IV at 1 bolus Per protocol; 1000 mL bolus Route: IV; Rate: 1 jb4 bolus; Site: right hand; 02:51 Drug: Ondansetron IVP 4 mg IVP once; over 2 minutes Route: IVP; Site: right hand; jb4 03:42 Drug: Tetanus-Diphtheria Toxoid IM Adult 0.5 ml IM once; Provide Vaccine Information jb4 Statement (VIS). {Lathe Operator: Vputi; Exp: Sat Jan 01 2025; Lot #: [id number]; Series: 1 of 1; Patient Consent: Obtained; Date/Time: ; Source Name: Ana Rosa Ferguson; Source Relationship: Self; Address Information: [address] [place] [address]; ; Education: Provided; VIS Presented Date: ; VIS Publication: Tetanus/Diphtheria/Pertussis (Tdap/Td) VIS 09/03/2011 (historic)} Route: IM; Site: right deltoid; 03:42 Drug: Potassium Chloride PO 40 mEq PO once Route: PO; jb4 06:07 Drug: NS 0.9% IV 1000 ml IV at 1 bolus Per protocol; 1000 mL bolus Route: IV; Rate: 1 jb4 bolus; Site: right hand; 07:49 Follow up: Response: No adverse reaction; IV Status: Completed infusion; IV Intake: kc6 1000ml 07:28 Drug: Lidocaine Infiltration (1 %) 20 ml 20 ml Infiltration once; to bedside Volume: 20 ph ml; Route: Infiltration; Disposition Summary: 07/03/23 07:24 Discharge Ordered Notes: Suture removal advised after 14 days Location: Home sp4 Problem: new sp4 Symptoms: have improved sp4 Condition: Stable sp4 Diagnosis - Duration, fall at home, acute intoxication sp4 Followup: sp4 - With: Private Physician - When: As needed - Reason: Discharge Instructions: - Discharge Summary Sheet sp4 - Facial Laceration, [id number] sp4 Forms: - Patient Portal Instructions sp4 Signatures: Dispatcher [employer] Angelica Carrillo RN RN Hermes Moss RN RN jb4 Misha Martinez MD MD sp4 Eva Askew RN kc6
[2023-07-03 07:42] LABS: Urine Bacteria None Seen /HPF (<20); Urine Bilirubin NEGATIVE (Negative); Urine Blood 1+ (Negative); Urine Clarity Turbid (Clear); Urine Color Light-Yellow (Yellow); Urine Glucose NEGATIVE (Negative); Urine Protein 1+ (Negative); Urine Urobilinogen Normal (Normal)
[2023-07-03 07:56] LABS: Barbiturates NEGATIVE (NEGATIVE); Benzodiazepines NEGATIVE (NEGATIVE); Cocaine NEGATIVE (NEGATIVE); METHAMPHETAM POSITIVE (NEGATIVE); Methadone NEGATIVE (NEGATIVE); Opiates NEGATIVE (NEGATIVE); Phencyclidine NEGATIVE (NEGATIVE); THC Cannibis NEGATIVE (NEGATIVE)
[2023-07-03 08:18] VITALS: BP 117/96; O2SAT 100
--- NOTE | 2023-07-04 16:46 | RAD REPORT ---
EXAM DESCRIPTION: CT - Head Brain Wo Cont - 07/03/2023 6:53 am CLINICAL HISTORY: 33 years, Female, head injury COMPARISON: None FINDINGS: Multiple transaxial tomograms of the brain were obtained from the base of the skull to the vertex without contrast. An individualized dose optimization technique, Automated Exposure Control, was utilized for the perfo rmed procedure. Brain parenchyma as well as the luo and white matter differentiation demonstrate to be unremarkable. There is no evidence for acute intraparenchymal hemorrhage. There is no midline shift and/or mass ef fect. No focal areas of hypodensities. Lateral ventricles and cisterns displace normal appearance. No intra or extra axial fluid collections were seen. The calvarium demonstrate to be intact with no evidence for acute bony injuries. The visualized portions of the paranasal sinuses and orbits demons trate to be clear. IMPRESSION: No evidence for acute traumatic injury to the head. Electronically signed by: Owen Goldberg MD 07/03/2023 03:22 AM JUNCTION MAKER Due to temporary technical issues with the PACS/Fluency reporting system, reports are being signed by the in house radiologists without review as a courtesy to insure prompt reporting. The interpreting radiologist is fully responsible for the content of the report.
--- NOTE | 2023-07-07 16:59 | EKG ---
Test Date: 2023-07-03 Test Time: 02:42:43 Clinical Outcomes Manager: ANYI MEASUREMENT RESULTS: Intervals: Rate: 118 VT: 144 QRSD: 68 QT: 350 QTc: 490 Joy: P: 73 VT: 144 QRS: 61 T: 36 INTERPRETIVE STATEMENTS: Sinus tachycardia Biatrial enlargement Nonspecific T wave abnormality Abnormal ECG Compared to ECG 08/14/2008 11:22:04 Atrial abnormality now present T-wave abnormality now present Sinus rhythm no longer present Electronically Signed On 07-07-23 16:53:40 CASEWORK SPECIALIST by Beni Martins
== END 2023-07-03 08:09 | disposition home or self-care (01) ==
LOC: ER 02:10
PROC: 0HQ1XZZ Repair Face Skin, External Approach (ICD-10-PCS; principal; 2023-07-03)
PROC: 3E0234Z Introduction of Serum, Toxoid and Vaccine into Muscle, Percutaneous Approach (ICD-10-PCS; 2023-07-03)
DX: S01.111A Laceration without foreign body of right eyelid and periocular area, initial encounter (principal); F10.129 Alcohol abuse with intoxication, unspecified; Y90.0 Blood alcohol level of less than 20 mg/100 ml; W18.30XA Fall on same level, unspecified, initial encounter; Y92.018 Other place in single-family (private) house as the place of occurrence of the external cause; Z23 Encounter for immunization
CPT/HCPCS: 96361; 93005; 85025; 81001; 80048; 36415; 81025; 85610; 80076; 85730; 80307; 70450; 90471 ×2; 96375; 96374; 99291; 99292; 80143; 80179; 82077; 12013; 90714; J2310; J2001; J2405; J7030 ×2

== ENCOUNTER 2024-06-08 08:20 | Emergency (ER) | payer OTHER ==
--- OUTSIDE RECORDS SUMMARY | 2024-06-08 08:25 | XMS REPORT | Continuity of Care Document ---
Author Name Unknown Address [address] [facility] [address] [place] [address] [facility] thconnect Address [address] [facility] [address] [place] [address] Care Team Providers Care Anesthesiology Tech Name Role Phone Pcp, Patient Does Not Have A Primary Care Physic liliya Doctor Unassigned, [place] Attending Clinician U MEGHAN Jacobs Attending Clinician UnavailMeghan Yuan Attending Clinician [phone] HARVEY DAWN Attending Clinician UnavailHarvey Haywood Attending Clinician [phone]- [phone] Nurse, Adc Pob Immunization Attending Clinician Unavailable José Manuel Brewer DO Attending Clinician [phone] JOSÉ MANUEL BREWER Attending Clinician Unavail able DAMIR JONES Attending Clinician Unavailable STEFANY BROWN Attending Clinician Unavailab MARIBEL Montelongo Attending Clinician UnavailHECTOR Lemos Attending Clinician Unavail able Payers Payer Name Policy Type Policy Number Effective Date Expirati on Date Source Problems Condition Name Condition Details Condition Category Status Onset Date Resolution Date Last Treatment Date Treating Clinician Comments Source Routine follow-up Routine follow-up Disease Active 05-10:00: 00 [facility] Allergies, Adverse Reactions, Alerts Allergy Name Allergy Type Status Severity Reaction(s) Onset Date Inactive Date Treating Clinician Comments Source No Known Allergie s DA Active U 4- 00:00: 00 [facility] No Known Allergie s DA Active U 3-08 00:00: 00 [facility] NO KNOWN ALLERGIE S Drug Class Active [facility] Social History Social Habit Start Date Stop Date Quantity Comments Source Sexual orientation U [facility] Exposure to SARS-CoV-2 (event) 2022-09-21 00:00:00 2022-10-01 23:41:00 Not sure [facility] Alcohol intake 2022-10-01 00:00:00 2022-10-01 00:00:00 0 /d [facility] History of Social function 2022-10-01 00:00:00 2022-10-01 00:00:00 [facility] Tobacco Comment 2016-03-19 00:00:00 2016-03-19 00:00:00 Smoked x 1 since delivery [facility] History of tobacco use 2012-10-09 00:00:00 Cigarette Smoker [facility] Sex Assigned At 1990 00:00:00 1990 00:00:00 [facility] Smoking Status Start Date Stop Date Source Ex-smoker 2016-03-19 00:00:00 2016-03-19 00:00:00 [facility] Medications Ordered Medication Name Filled Medication Name Start Date Stop Date Current Medication? Ordering Clinician Indication Dosage Frequency Signature (SIG) Comments Components Source chlorhexidi ne (PERIDEX) 0.12 % mouthwash 2022-08 00:00: 00 08-16 05:59 :00 No [id number] 15mL Swish and spit out 15 mL in the morning and 15 mL in the evening. Do all this for 7 days. [facility] penicillin v potassium 500 mg tablet 2022-08 00:00: 00 08-08 00:00 :00 No [id number] 500mg Take 1 tablet by mouth 4 (four) times daily. [facility] predniSONE (DELTASONE) tablet 40 mg 10-02 06:15: 00 10-02 06:14 :00 No 40mg 40 mg, Oral, ONCE, 1 dose, On Fri10/02/22 at 0015, FIONA [facility] predniSONE 20 mg tablet 10-02 00:00: 00 10-10 05:59 :00 No [id number] 40mg Take 2 tablets by mouth in the morning for 7 days. [facility] vitamin w/FA (PRENATABS RX) tablet 03-14 00:00: 00 Yes 1{tbl} Take 1 tablet by mouth daily. [facility] docusate calcium (SURFAK) 240 mg capsule 03-14 00:00: 00 Yes 240mg Take 1 capsule by mouth once daily as needed for Constipati on. [facility] ferrous sulfate 325 mg (65 mg iron) tablet 03-14 00:00: 00 Yes 325mg Take 1 tablet by mouth 2 (two) times daily. [facility] ibuprofen (MOTRIN) 600 mg tablet 03-14 00:00: 00 Yes 600mg Take 1 tablet by mouth every 6 (six) hours as needed for Pain (scale 1-3) or Pain (scale 4-6). Take with food or milk. [facility] acetaminoph en-codeine (TYLENOL #3) 300-30 mg tablet 03-14 00:00: 00 Yes 1{tbl} Take 1 tablet by mouth every 6 (six) hours as needed for Pain (scale 1-3) or Pain (scale 4-6). For patients < 12 years recommend do not exceed 5 doses or 2.6 gm in 24 hours totals for all acetaminop hen containing products. For adults with normal hepatic function recommend do not exceed 3 grams in 24 hours for all acetaminop hen containing products. [facility] vitamin w/FA (PRENATABS RX) tablet 03-14 00:00: 00 Yes 1{tbl} Take 1 tablet by mouth daily. [facility] PRENATE MINI, FERR ASP GLYCIN, 18-1-350 mg Cap 01-19 00:00: 00 Yes [facility] PRENATE MINI, FERR ASP GLYCIN, 18-1-350 mg Cap 01-19 00:00: 00 Yes [facility] Immunizations Ordered Immunization Name Filled Immunization Name Date Status Comments Source SARS-COV-2 COVID-19 PFIZER VACCINE 2021-08-21 00:00:00 Completed [facility] SARS-COV-2 COVID-19 PFIZER VACCINE 2021-08-21 00:00:00 Completed [facility] SARS-COV-2 COVID-19 PFIZER VACCINE 2020-12-25 00:00:00 Completed [facility] SARS-COV-2 COVID-19 PFIZER VACCINE 2020-12-25 00:00:00 Completed [facility] SARS-COV-2 COVID-19 PFIZER VACCINE 2020-12-05 00:00:00 Completed [facility] SARS-COV-2 COVID-19 PFIZER VACCINE 2020-12-05 00:00:00 Completed [facility] TDAP 2016-01-03 00:00:00 Completed [facility] TDAP 2016-01-03 00:00:00 Completed [facility] TDAP Unknown Completed [facility] SARS-COV-2 COVID-19 PFIZER VACCINE Unknown Completed [facility] TDAP Unknown Completed [facility] SARS-COV-2 COVID-19 PFIZER VACCINE Unknown Completed [facility] TDAP Unknown Completed [facility] SARS-COV-2 COVID-19 PFIZER VACCINE Unknown Completed [facility] Vital Signs Vital Name Observation Time Observation Value Comments S roberce Systolic blood pressure 2023-08-08 14:30:00 126 mm[Hg] [facility] Diastolic blood pressure 2023-08-08 14:30:00 79 mm[Hg] [facility] Heart rate 2023-08-08 14:30:00 96 /[facility] 2023-08-08 14:30:00 37 [facility] Respiratory rate 2023-08-08 14:30:00 16 /min [facility] Body weight 2023-08-08 14:30:00 71.215 kg [facility] BMI 2023-08-08 14:30:00 24.59 kg/m2 [facility] Oxygen saturation in Arterial blood by Pulse oximetry 2023-08-08 14:30:00 100 /min [facility] Systolic blood pressure 2023-07-11 21:23:00 120 mm[Hg] [facility] Diastolic blood pressure 2023-07-11 21:23:00 63 mm[Hg] [facility] Heart rate 2023-07-11 21:23:00 85 /min [facility] Body temperature 2023-07-11 21:23:00 36.78 [facility] Respiratory rate 2023-07-11 21:23:00 20 /min [facility] Body weight 2023-07-11 21:23:00 68.04 kg [facility] BMI 2023-07-11 21:23:00 23.49 kg/m2 [facility] Oxygen saturation in Arterial blood by Pulse oximetry 2023-07-11 21:23:00 100 /min [facility] Systolic blood pressure 2022-10-02 05:40:00 113 mm[Hg] [facility] Diastolic blood pressure 2022-10-02 05:40:00 71 mm[Hg] [facility] Heart rate 2022-10-02 05:40:00 116 /min [facility] Body temperature 2022-10-02 05:40:00 37.22 [facility] Respiratory rate 2022-10-02 05:40:00 16 /min [facility] Body height 2022-10-02 05:40:00 170.2 cm [facility] Body weight 2022-10-02 05:40:00 68.04 kg [facility] BMI 2022-10-02 05:40:00 23.49 kg/m2 [facility] Oxygen saturation in Arterial blood by Pulse oximetry 2022-10-02 05:40:00 100 /min [facility] Procedures Procedure Date / Time Performed Performing Clinicia n Source [facility] CONSENT FOR FREE TREATMENT FORM 2023-08-23 06:01:00 Doctor Unassigned, [place] [facility] CONSENT/REFUSAL FOR DIAGNOSIS AND TREATMENT 2023-08-08 14:29:26 Doctor Unassigned, [place] [facility] CONSENT/REFUSAL FOR DIAGNOSIS AND TREATMENT 2023-07-11 21:06:18 Doctor Unassigned, [place] [facility] NOTICE OF PRIVACY PRACTICES 2022-10-02 05:36:23 Doctor Unassigned, [place] [facility] CONSENT/REFUSAL FOR DIAGNOSIS AND TREATMENT 2022-10-02 05:35:56 Doctor Unassigned, [place] [facility] SARS-COV-2 COVID-19 VACCINE,0.3ML,IM (PFIZER) 2021-08-21 15:01:17 Doctor Unassigned, [place] [facility] Encounters Start Date/Time End Date/Time Encounter Type Admission Type Attending [facility] Care Department Encounter ID Source 2023-08-23 00:00:00 2023-08-23 00:00:00 Orders Only Doctor Unassigned, [place] [facility] [id number] [facility] 2023-08-08 08:33:00 2023-08-08 10:16:00 Emergency X MEGHAN PORTILLO [facility] ERT [id number] [facility] 2023-08-08 08:33:00 2023-08-08 10:16:00 Emergency Meghan [facility] [id number] [id number] [id number] [facility] 2023-07-11 15:25:00 2023-07-11 16:20:00 Emergency X MEGHAN PORTILLO [facility] ERT [id number] [facility] 2023-07-11 15:25:00 2023-07-11 16:20:00 Emergency Meghan [facility] [id number] [id number] [id number] [facility] 2022-10-01 23:43:00 2022-10-02 00:30:00 Emergency X HARVEY DAWN [facility] ERT [id number] [facility] 2022-10-01 23:43:00 2022-10-02 00:30:00 Emergency Harvey Dawn [facility] 1..840.114 [id number] [id number] [facility] 2021-08-21 09:30:00 2021-08-21 09:30:00 Imm/Inj Visit Nurse, Pao Poann Immunizatio José Manuel Martinez [facility] 1..840.114 350.1.13.10 [id number] [id number] [facility] 2021-08-21 09:30:00 2021-08-21 08:59:13 Outpatient JOSÉ MANUEL GAMBINO [facility] [id number] [facility] 2020-12-25 08:30:00 2020-12-25 08:28:56 Outpatient JOSÉ MANUEL GAMBINO [facility] [id number] [facility] 2020-12-05 08:40:00 2020-12-05 08:22:48 Outpatient DAMIR ORR [facility] [id number] [facility] 2020-09-18 13:00:00 2020-09-18 13:00:00 Outpatient STEFANY CAIN [facility] [id number] [facility] 2020-08-23 08:30:00 2020-08-23 08:30:00 Outpatient R [facility] [id number] [facility] 2020-08-23 08:30:00 2020-08-23 08:30:00 Outpatient MARIBEL CRABTREE [facility] [id number] [facility] 2020-06-29 14:30:00 2020-06-29 14:30:00 Outpatient R HECTOR BARRAZA [facility] [id number] [facility] Notes Date/Time Note Provider Source 2023-08-08 10:15:53 Patient given printed and verbal discharge instructions regarding tooth pain , encouraged hydration and proper nutrition. Prescriptions provided: PCN/Peridex Discussed indications, side effects and expected therapeutic response to medications. Advised to take until completed unless adverse reaction occurs - if occurs, discontinue medication and follow up with PCP /seek medical attention. Patient verbalized understanding of instructions. Patient is awake alert oriented, respirations even & unlabored, skin warm & dry, color appropriate for race, moves all extremities well, patient encouraged to follow up with PCP and keep all appropriate appointments as otherwise scheduled or to return to ED for new, prolonged, or worsening of symptoms. Patient departed ED ambulatory with steady gait, in possession of all belongings. É MIGUEL Caro RN [facility] 2023-08-08 09:39:18 Ana Rosa Freeman is a 33 year old female presents to ED for Right tooth pain and left knee pain. Pt reports alternating between IBU and Tylenol. Pt also has complaints of dry cracking skin on bilateral hands. Pt has had the whole in her mouth for over a month and it is progressively becoming worse and radiating into her right ear. Patient has had a fever but it was over two weeks ago. Pt tore her L ACL in 2005 and has had on/off pain and swelling. Pt denies N/V. Pt educated on ED processes and procedures as well as current plan of care. Pt has no further needs at this time. Bed in lowest locked position. Call light within reach. VSS. RR E/U. NAD noted. Waiting on provider for evaluation. [facility] 2023-08-08 08:32:13 Ana Rosa Freeman is a 33 year old female coming to the er for right sided tooth and left knee pain for months, pt reports taking Tylenol and Motrin for pain no injuries to knee pt managing secretions well A&Ox4 resp even and unlabored ambulatory to triage with a steady gait gcs 15 to er green chair for further eval SH INSPECTOR Marino Bernal RN [facility] 2018-11-18 12:06:00 [facility] ([facility]) EMERGENCY PROVIDER REPORT REPORT#:[id number] REPORT STATUS: Signed DATE:11/18/18 TIME: 1206 PATIENT: ANA ROSA FREEMAN UNIT #: [id number] ROOM/BED: AGE: 28 SEX: F PCP PHYS: No Primary or Family Physician SERVICE AUTHOR: Deon Mason * ALL edits or amendments must be made on the electronic/computer document * HPI-Sore Throat General Confirmed Patient Yes Initial Greet Date/Time 11/18/18 1158 Presentation Chief Complaint Sore throat, Pain with swallowing Hx Obtained From Patient Onset Occurred Yesterday [...] patients 13 years old or older: Never Smoker Other Social History Local resident [...] PE General/Const General/Const Awake, Alert, Well developed, Cooperative Ears/Nose/Throat Ears/Nose/Throat Airway patent, Mucous membranes moist, No peritonsillar abscess Text/Dict Notes BL tonsillar exudate erythema, uvula midline MS Neck Neck Supple, No meningismus, Full range of motion, No swelling, Non-tender, No midline vertebral tend Text/Dict Notes anterior cervical lymphadenopathy Resp/Chest Respiratory/Chest Breath sounds NL, No respiratory distress, No rales, No rhonchi, No wheezing Cardiovascular Cardiovascular Heart rate NL, Regular rhythm, Heart sounds NL Skin Skin Warm, Dry, Intact [...] 100 On: Room air Interpretation Interpreted by nj, Pulse oximetry normal Time 1205 Portions of this section were scribed by Celestine Woo on 11/18/18 at 1216 Re-Evaluation MDM Free Text MDM Notes Free Text MDM Notes patient with history concerning for bacterial tonsilitis will need abx to treat she denies chest pain or cough non toxic here in ed Patient Discharge Departure Vital Signs/Condition Vital Signs First Documented: Result Date Time Pulse Ox 100 11/18 1205 B/P 119/81 04/10 1205 B/P Mean 93 04/10 1205 O2 Delivery Room air 04/ 1205 Temp 37.1 04/10 1205 Pulse 92 04/ 1205 Resp 16 / 1205 Last Documented: Result Date Time Pulse Ox 100 04/10 1205 B/P 119/81 04/10 1205 B/P Mean 93 04/10 1205 O2 Delivery Room air 04/10 1205 Temp 37.1 04/10 1205 Pulse 92 04/10 1205 Resp 16 / 1205 All vital signs available at the time of this entry have been reviewed. Condition Stable Clinical Impression Clinical Impression Primary Impression: Pharyngitis Disposition Decision Discharge )( Discharged to Home Yes )( Time 1216 )( Date 11/18/18 Discharge/Care Plan Counseled Regarding Diagnosis, Prescriptions, Need for follow-up, When to return to ED Prescriptions Augmentin Prednisone Quality Measures Pharyngitis Testing Antibiotic prescribed, Group A Strep test doc Supervising Physician Note Scribe Statement Celestine Woo, 11/18/18 1207, scribing for and in the presence of TINA Darling. Signed By: Celestine Woo, 11/18/18 1207 Provider Scribed Statement I personally performed the services described in this documentation and reviewed the documentation that was dictated to the scribe(s) in my presence, and it accurately records my words and actions. Deon Mason, 11/18/18 Portions of this section were scribed by Celestine Woo on 11/18/18 at 1206 at 1611 RPT #:[id number] END OF REPORT [facility] 2018-11-18 12:06:00 [facility] ([facility]) EMERGENCY PROVIDER REPORT REPORT#:[id number] REPORT STATUS: Signed DATE:11/18/18 TIME: 1206 PATIENT: ANA ROSA FREEMAN UNIT #: [id number] ROOM/BED: AGE: 28 SEX: F PCP PHYS: No Primary or Family Physician SERVICE AUTHOR: Deon Mason * ALL edits or amendments must be made on the electronic/computer document * Deon Mason 11/18/18 1206: HPI-Sore Throat General Confirmed Patient Yes Presentation Chief Complaint Sore throat, Pain with swallowing Hx Obtained From Patient Onset Occurred Yesterday [...] patients 13 years old or older: Never Smoker Other Social History Local resident Portions of this section were scribed by Celestine Woo on 11/18/18 at 1215 Physical Exam Vital Signs Vital Signs First Documented: Result Date Time Pulse Ox 100 04/10 1205 B/P 119/81 04/10 1205 B/P Mean 93 04/10 1205 O2 Delivery Room air / 1205 Temp 37.1 04/10 1205 Pulse 92 04/10 1205 Resp 16 / 1205 Last Documented: Result Date Time Pulse Ox 100 04/10 1205 B/P 119/81 04/10 1205 B/P Mean 93 04/10 1205 O2 Delivery Room air 04/ 1205 Temp 37.1 04/10 1205 Pulse 92 04/10 1205 Resp 16 04/10 1205 Review of Vital Signs Reviewed Focused PE General/Const General/Const Awake, Alert, Well developed, Cooperative Ears/Nose/Throat Ears/Nose/Throat Airway patent, Mucous membranes moist, No peritonsillar abscess Text/Dict Notes BL tonsillar exudate erythema, uvula midline MS Neck Neck Supple, No meningismus, Full range of motion, No swelling, Non-tender, No midline vertebral tend Text/Dict Notes anterior cervical lymphadenopathy Resp/Chest Respiratory/Chest Breath sounds NL, No respiratory distress, No rales, No rhonchi, No wheezing Cardiovascular Cardiovascular Heart rate NL, Regular rhythm, Heart sounds NL Skin Skin Warm, Dry, Intact [...] by Celestine Woo on 11/18/18 at 1216 Re-Evaluation MDM Free Text MDM Notes Free Text MDM Notes patient with history concerning for bacterial tonsilitis will need abx to treat she denies chest pain or cough non toxic here in ed Patient Discharge Departure Vital Signs/Condition Vital Signs First Documented: Result Date Time Pulse Ox 100 04/ 1205 B/P 119/81 04/ 1205 B/P Mean 93 04/10 1205 O2 Delivery Room air 04/ 1205 Temp 37.1 04/10 1205 Pulse 92 04/10 1205 Resp 16 / 1205 Last Documented: Result Date Time Pulse Ox 100 04/ 1205 B/P 119/81 04/10 1205 B/P Mean 93 04/10 1205 O2 Delivery Room air 04/ 1205 Temp 37.1 04/10 1205 Pulse 92 04/10 1205 Resp 16 / 1205 All vital signs available at the time of this entry have been reviewed. Condition Stable Clinical Impression Clinical Impression Primary Impression: Pharyngitis Disposition Decision Discharge )( Discharged to Home Yes )( Time 1216 )( Date 11/18/18 Discharge/Care Plan Counseled Regarding Diagnosis, Prescriptions, Need for follow-up, When to return to ED Prescriptions Augmentin Prednisone Quality Measures Pharyngitis Testing Antibiotic prescribed, Group A Strep test doc Supervising Physician Note Scribe Statement Celestine Woo, 11/18/18 1207, scribing for and in the presence of TINA Darling. Signed By: Celestine Woo, 11/18/18 1207 Provider Scribed Statement I personally performed the services described in this documentation and reviewed the documentation that was dictated to the scribe(s) [...] Saw Pt Alone I have reviewed the PA/MACHINE INKER's note and plan of care. I was available for consultation as needed at all times during the patient's visit in the emergency department. I agree with the clinical impression, plan and disposition. at 1611 at 1454 RPT #:[id number] END OF REPORT [facility]
--- NOTE | 2024-06-08 08:44 | EDPHYS ---
Physician Documentation [facility] Name: Ana Rosa Ferguson Age: 34 yrs Sex: Female : 1990 Arrival Date: 06/08/2024 Time: 08:20 Bed 16 Private MD: ED Physician Lang Amador HPI: 06/08 09:45 This 34 yrs old Black Female presents to ER via Ambulatory with complaints of Rash. rt 09:45 Patient presents to the ED with rash. Patient states this occurred 3 days ago after she rt was outside watching a soccer game. The patient reports itching to the skin, states that is generalized. The patient was seen at an ER, prescribed 3 different creams, states that she has no improvement. Denies other acute complaints, symptoms are moderate in severity, no other aggravating or alleviating factors.. Historical: - Allergies: 08:28 No Known Drug Allergies; ph - PSHx: :28 section; ph - Immunization history:: Adult Immunizations unknown. - Infectious Disease History:: Denies. - Social history:: Smoking status: Patient denies any tobacco usage or history of. - Family history:: not pertinent. ROS: 09:45 Constitutional: Negative for fever, chills, and weight loss, Cardiovascular: Negative rt for chest pain, palpitations, and edema, Respiratory: Negative for shortness of breath, cough, wheezing, and pleuritic chest pain, Abdomen/GI: Negative for abdominal pain, nausea, vomiting, diarrhea, and constipation, MS/Extremity: Negative for injury and deformity, 09:45 Skin: Positive for rash, Negative for abscesses, Exam: 09:45 Constitutional: This is a well developed, well nourished patient who is awake, alert, rt and in no acute distress. Head/Face: Normocephalic, atraumatic. Chest/axilla: Normal chest wall appearance and motion. Nontender with no deformity. No lesions are appreciated. Cardiovascular: Regular rate and rhythm with a normal S1 and S2. No gallops, murmurs, or rubs. Normal PMI, no JVD. No pulse deficits. Respiratory: Lungs have equal breath sounds bilaterally, clear to auscultation and percussion. No rales, rhonchi or wheezes noted. No increased work of breathing, no retractions or nasal flaring. Abdomen/GI: Soft, non-tender, with normal bowel sounds. No distension or tympany. No guarding or rebound. No evidence of tenderness throughout. MS/ Extremity: Pulses equal, no cyanosis. Neurovascular intact. Full, normal range of motion. Neuro: Awake and alert, GCS 15, oriented to person, place, time, and situation. Cranial nerves II-XII grossly intact. Motor strength 5/5 in all extremities. Sensory grossly intact. Cerebellar exam normal. Normal gait. 09:45 ENT: Use mucous membranes, no intraoral lesions. 09:45 Skin: Dry rash noted diffusely, no warmth, erythema. Vital Signs: 08:30 BP 137 / 91; Pulse 93; Resp 16; Temp 98.1(O); Pulse Ox 99% on R/A; Weight 68.04 kg; ss Height 5 ft. 7 in. ; Pain 0/10; 09:32 BP 132 / 89; Pulse 87; Resp 18; Temp 98; Pulse Ox 99% on R/A; ph 08:30 Body Mass Index 23.49 (68.04 kg, 170.18 cm) ss 08:30 Pain Scale: Adult ss MDM: 08:32 Medical Screening Exam initiated rt 09:45 Differential diagnosis: Dermatitis. Data reviewed: vital signs, nurses notes. Test rt considered but Not performed: Labs: No physical signs of cellulitis, abscess, SJS, TENS, erythema multiforme, labs are not indicated. Counseling: I had a detailed discussion with the patient and/or guardian regarding the historical points, exam findings, and any diagnostic results supporting the discharge/admit diagnosis, the need for outpatient follow up, to return to the emergency department if symptoms worsen or persist or if there are any questions or concerns that arise at home. Administered Medications: 08:55 CANCELLED (Duplicate Order): dexamethasone 2 mg IM once rt 09:15 Drug: Dexamethasone IM 10 mg IM once Route: IM; Site: right deltoid; ph 09:26 Follow up: Response: No adverse reaction ph Disposition Summary: 06/08/24 08:43 Discharge Ordered Notes: Location: Home rt Problem: new rt Symptoms: are unchanged rt Condition: Stable rt Diagnosis - Dermatitis, unspecified rt Followup: rt - With: Gomez, Wilfrido, DO - When: 2 - 3 days - Reason: Discharge Instructions: - Discharge Summary Sheet rt - Rash, Adult rt - Atopic Dermatitis rt Forms: - Medication Reconciliation Form rt - Antibiotic Education rt - Prescription Opioid Use rt - Patient Portal Instructions rt - Leadership Thank You Letter rt Prescriptions: - Hydroxyzine HCl 25 mg Oral Tablet - take 1 tablet ORAL route every 6 hours As needed; 30 tablet; Refills: 0, rt Product Selection Permitted - Prednisone 20 mg Oral Tablet - take 2 tablets ORAL route once daily for 5 days; 10 tablet; Refills: 0, Product rt Selection Permitted Signatures: Angelica Diaz RN RN ph Lang Amador MD MD rt Corrections: (The following items were deleted from the chart) 08:55 08:41 Dexamethasone IM 2 mg IM once ordered. rt rt
--- NOTE | 2024-06-08 08:44 | ER ---
Nurse's Notes [facility] Name: Ana Rosa Ferguson Age: 34 yrs Sex: Female : 1990 Arrival Date: 06/08/2024 Time: 08:20 Bed 16 Private MD: Diagnosis: Dermatitis, unspecified Presentation: 06/08 08:30 Chief complaint: Patient states: rash all over that began 3 days ago. Pt reports being ss seen at another ER and was prescribed creams that do not seem to be helping. Coronavirus screen: Client denies travel out of the [place] in the last 14 days. Ebola Screen: Patient denies exposure to infectious person. Patient denies travel to an Ebola-affected area in the 21 days before illness onset. Initial Sepsis Screen: Does the patient meet any 2 criteria? No. Patient's initial sepsis screen is negative. Does the patient have a suspected source of infection? No. Patient's initial sepsis screen is negative. Risk Assessment: Do you want to hurt yourself or someone else? Patient reports no desire to harm self or others. Onset of symptoms. 08:30 Method Of Arrival: Ambulatory ss 08:30 Acuity: SANTI 4 ss Historical: - Allergies: 08:28 No Known Drug Allergies; ph - PSHx: 08:28 section; ph - Immunization history:: Adult Immunizations unknown. - Infectious Disease History:: Denies. - Social history:: Smoking status: Patient denies any tobacco usage or history of. - Family history:: not pertinent. Screenin:29 [facility] ED Fall Risk Assessment (Adult) History of falling in the last 3 months, ph including since admission No falls in past 3 months (0 pts) Confusion or Disorientation No (0 pts) Intoxicated or Sedated No (0 pts) Impaired Gait No (0 pts) Mobility Assist Device Used No (0 pt) Altered Elimination No (0 pt) Score/Fall Risk Level 0 - 2 = Low Risk Oriented to surroundings, Maintained a safe environment, Hourly rounding (assess needs \T\ fall precautionary measures) done. Abuse screen: Denies threats or abuse. Denies injuries from another. Nutritional screening: No deficits noted. Tuberculosis screening: No symptoms or risk factors identified. Assessment: 08:45 General: Appears in no apparent distress. Behavior is calm, cooperative. Pain: Denies ph pain. Neuro: Level of Consciousness is awake, alert, obeys commands, Oriented to person, place, time, situation. Respiratory: Airway is patent Respiratory effort is even, unlabored, Respiratory pattern is regular, symmetrical. Derm: Skin is pink, warm \T\ dry. Rash noted that is on face, chest, right arm and left arm. Vital Signs: 08:30 BP 137 / 91; Pulse 93; Resp 16; Temp 98.1(O); Pulse Ox 99% on R/A; Weight 68.04 kg; ss Height 5 ft. 7 in. ; Pain 0/10; 09:32 BP 132 / 89; Pulse 87; Resp 18; Temp 98; Pulse Ox 99% on R/A; ph 08:30 Body Mass Index 23.49 (68.04 kg, 170.18 cm) ss 08:30 Pain Scale: Adult ED Course: 08:23 Patient arrived in ED. im 08:27 Angelica Diaz RN is Primary Nurse. ph 08:29 Arm band placed on Patient placed in an exam room, on a stretcher. ph 08:29 Patient has correct armband on for positive identification. Bed in low position. Call ph light in reach. Pulse ox on. NIBP on. Door closed. Noise minimized. 08:30 Lang Amador MD is Attending Physician. rt 08:32 Triage completed. ss 08:42 Wilfrido Gomez DO is Referral Physician. rt 09:27 No provider procedures requiring assistance completed. Patient did not have IV access ph during this emergency room visit. Administered Medications: 08:55 CANCELLED (Duplicate Order): dexamethasone 2 mg IM once rt 09:15 Drug: Dexamethasone IM 10 mg IM once Route: IM; Site: right deltoid; ph 09:26 Follow up: Response: No adverse reaction ph Medication: 08:34 VIS not applicable for this client. ph Outcome: 08:43 Discharge ordered by MD. rt 09:28 Discharged to home ambulatory, ph 09:28 Condition: good 09:28 Discharge instructions given to patient, Instructed on discharge instructions, follow up and referral plans. medication usage, Demonstrated understanding of instructions, follow-up care, medications, Prescriptions given X 2, 09:34 Patient left the ED. ph Signatures: Rosalind Hitchcock RN RN Angelica Diaz RN RN [place], LangMD MD rt Audi Itzel im Corrections: (The following items were deleted from the chart) 09:26 09:26 Dexamethasone IM 10 mg IM in right deltoid ph ph
[2024-06-08] MEDS ORDERED: dexAMETHasone 10 MG/ML VIAL ONE (08:55)
[2024-06-08 09:38] VITALS: O2SAT 99
[2024-06-08 09:40] VITALS: BP 132/89; TEMP 98
== END 2024-06-08 09:34 | disposition home or self-care (01) ==
LOC: ER 08:20
DX: L30.9 Dermatitis, unspecified (principal)
CPT/HCPCS: J1100

== ENCOUNTER 2025-03-10 05:55 | Inpatient (IN) | payer OTHER, SELFPAY ==
--- OUTSIDE RECORDS SUMMARY | 2025-03-10 05:58 | XMS REPORT | Continuity of Care Document ---
Author Name Unknown Address [address] [place] [address] [facility] Address [address] [place] [address] Care Team Providers Care Yarn Handler Name Role Phone Pcp, Patient Does Not Have A Primary Care Physic liliya Doctor Unassigned, [place] Attending Clinician U MEGHAN Jacobs Attending Clinician UnavailMeghan Yuan Attending Clinician [phone] HARVEY DAWN Attending Clinician UnavailHarvey Haywood Attending Clinician [phone]- [phone] Nurse, Adc Pob Immunization Attending Clinician Unavailable José Manuel Brewer DO Attending Clinician [phone] JOSÉ MANUEL BREWER Attending Clinician Unavail able [...] Source Routine follow-up Routine follow-up Disease Active 2016-0 9-30 00:00: 00 [facility] Allergies, Adverse Reactions, Alerts Allergy Name Allergy Type Status Severity Reaction(s) Onset Date Inactive Date Treating Clinician Comments Source No Known Allergie s DA Active U 4-10 00:00: 00 [facility] No Known Allergie s DA Active U 3-08 00:00: 00 [facility] NO KNOWN ALLERGIE S Drug Class Active [facility] Social History Social Habit Start Date Stop Date Quantity Comments Source Sexual orientation U [facility] Exposure to SARS-CoV-2 (event) 2022-09-21 00:00:00 2022-10-01 23:41:00 Not sure [facility] Alcohol intake 2022-10-01 00:00:00 2022-10-01 00:00:00 0 /d [facility] History of Social function 2022-10-01 00:00:00 2022-10-01 00:00:00 [facility] Tobacco Comment 2016-03-19 00:00:00 2016-03-19 00:00:00 Smoked x 1 since delivery [facility] History of tobacco use 2012-10-09 00:00:00 Cigarette Smoker [facility] Sex Assigned At 1990 00:00:00 1990 00:00:00 [facility] Smoking Status Start Date Stop Date Source Ex-smoker 2016-03-19 00:00:00 2016-03-19 00:00:00 [facility] Medications Ordered Medication Name Filled Medication Name Start Date Stop Date Current Medication? Ordering Clinician Indication Dosage Frequency Signature (SIG) Comments Components Source chlorhexidi ne (PERIDEX) 0.12 % mouthwash 2022-08 00:00: 00 08-16 05:59 :00 No [id number] 15mL Swish and spit out 15 mL in the morning and 15 mL in the evening. Do all this for 7 days. [facility] penicillin v potassium 500 mg tablet 2022-08 00:00: 00 08-08 00:00 :00 No [id number] 500mg Take 1 tablet by mouth 4 (four) times daily. [facility] predniSONE (DELTASONE) tablet 40 mg 10-02 06:15: 00 10-02 06:14 :00 No 40mg 40 mg, Oral, ONCE, 1 dose, On Fri10/02/22 at 0015, FIONA [facility] predniSONE 20 mg tablet 10-02 00:00: 00 10-10 05:59 :00 No [id number] 40mg Take 2 tablets by mouth in the morning for 7 days. [facility] vitamin w/FA (PRENATABS RX) tablet 03-14 00:00: 00 Yes 1{tbl} Take 1 tablet by mouth daily. [facility] docusate calcium (SURFAK) 240 mg capsule 03-14 00:00: 00 Yes 240mg Take 1 capsule by mouth once daily as needed for Constipati on. [facility] ferrous sulfate 325 mg (65 mg iron) tablet 03-14 00:00: 00 Yes 325mg Take 1 tablet by mouth 2 (two) times daily. [facility] ibuprofen (MOTRIN) 600 mg tablet 03-14 00:00: 00 Yes 600mg Take 1 tablet by mouth every 6 (six) hours as needed for Pain (scale 1-3) or Pain (scale 4-6). Take with food or milk. [facility] acetaminoph en-codeine (TYLENOL #3) 300-30 mg [...] hours for all acetaminop hen containing products. [facility] vitamin w/FA (PRENATABS RX) tablet 03-14 00:00: 00 Yes 1{tbl} Take 1 tablet by mouth daily. [facility] PRENATE MINI, FERR ASP GLYCIN, 18-1-350 mg Cap 01-19 00:00: 00 Yes [facility] PRENATE MINI, FERR ASP GLYCIN, 18-1-350 mg Cap 01-19 00:00: 00 Yes [facility] Immunizations Ordered Immunization Name Filled Immunization Name Date Status Comments Source SARS-COV-2 COVID-19 PFIZER VACCINE 2021-08-21 00:00:00 Completed [facility] SARS-COV-2 COVID-19 PFIZER VACCINE 2021-08-21 00:00:00 Completed [facility] SARS-COV-2 COVID-19 PFIZER VACCINE 2020-12-25 00:00:00 Completed [facility] SARS-COV-2 COVID-19 PFIZER VACCINE 2020-12-25 00:00:00 Completed [facility] SARS-COV-2 COVID-19 PFIZER VACCINE 2020-12-05 00:00:00 Completed [facility] SARS-COV-2 COVID-19 PFIZER VACCINE 2020-12-05 00:00:00 Completed [facility] TDAP 2016-01-03 00:00:00 Completed [facility] TDAP 2016-01-03 00:00:00 Completed [facility] TDAP Unknown Completed [facility] SARS-COV-2 COVID-19 PFIZER VACCINE Unknown Completed [facility] TDAP Unknown Completed [facility] SARS-COV-2 COVID-19 PFIZER VACCINE Unknown Completed [facility] TDAP Unknown Completed [facility] SARS-COV-2 COVID-19 PFIZER VACCINE Unknown Completed [facility] Vital Signs Vital Name Observation Time Observation Value Comments S ource Systolic blood pressure 2023-08-08 14:30:00 126 mm[Hg] [place] [facility] Diastolic blood pressure 2023-08-08 14:30:00 79 mm[Hg] [facility] Heart rate 2023-08-08 14:30:00 96 /min [facility] Body temperature 2023-08-08 14:30:00 37 Fernanda [facility] Respiratory rate 2023-08-08 14:30:00 16 /min [facility] Body weight 2023-08-08 14:30:00 71.215 kg [facility] BMI 2023-08-08 14:30:00 24.59 kg/m2 [facility] Oxygen saturation in Arterial blood by Pulse oximetry 2023-08-08 14:30:00 100 /min [facility] Systolic blood pressure 2023-07-11 21:23:00 120 mm[Hg] [facility] Diastolic blood pressure 2023-07-11 21:23:00 63 mm[Hg] [facility] Heart rate 2023-07-11 21:23:00 85 /min [facility] Body temperature 2023-07-11 21:23:00 36.78 Fernanda [facility] Respiratory rate 2023-07-11 21:23:00 20 /min [facility] Body weight 2023-07-11 21:23:00 68.04 kg [facility] BMI 2023-07-11 21:23:00 23.49 kg/m2 [facility] Oxygen saturation in Arterial blood by Pulse oximetry 2023-07-11 21:23:00 100 /min [facility] Systolic blood pressure 2022-10-02 05:40:00 113 mm[Hg] [facility] Diastolic blood pressure 2022-10-02 05:40:00 71 mm[Hg] [facility] Heart rate 2022-10-02 05:40:00 116 /min [facility] Body temperature 2022-10-02 05:40:00 37.22 Fernanda [facility] Respiratory rate 2022-10-02 05:40:00 16 /min [facility] Body height 2022-10-02 05:40:00 170.2 cm [facility] Body weight 2022-10-02 05:40:00 68.04 kg [facility] BMI 2022-10-02 05:40:00 23.49 kg/m2 [facility] Oxygen saturation in Arterial blood by Pulse oximetry 2022-10-02 05:40:00 100 /min [facility] Procedures Procedure Date / Time Performed Performing Clinic[facility] n [facility] CONSENT FOR FREE TREATMENT FORM 2023-08-23 06:01:00 Doctor Unassigned, [place] [facility] CONSENT/REFUSAL FOR DIAGNOSIS AND TREATMENT 2023-08-08 14:29:26 Doctor Unassigned, [place] [facility] CONSENT/REFUSAL FOR DIAGNOSIS AND TREATMENT 2023-07-11 21:06:18 Doctor Unassigned, [place] [facility] NOTICE OF PRIVACY PRACTICES 2022-10-02 05:36:23 Doctor Unassigned, [place] [facility] CONSENT/REFUSAL FOR DIAGNOSIS AND TREATMENT 2022-10-02 05:35:56 Doctor Unassigned, [place] [facility] SARS-COV-2 COVID-19 VACCINE,0.3ML,IM (PFIZER) 2021-08-21 15:01:17 Doctor Unassigned, [place] [facility] Encounters Start Date/Time End Date/Time Encounter Type Admission Type Attending [facility] Care Department Encounter ID Source 2023-08-23 00:00:00 2023-08-23 00:00:00 Orders Only Doctor Unassigned, [place] [facility] [id number] [facility] 2023-08-08 08:33:00 2023-08-08 10:16:00 Emergency X MEGHAN PORTILLO [facility] ERT [id number] [facility] 2023-08-08 08:33:00 2023-08-08 10:16:00 Emergency Meghan Portillo [facility] [id number] [facility] 2023-07-11 15:25:00 2023-07-11 16:20:00 Emergency X MEGHAN PORTILLO [facility] ERT [id number] [facility] 2023-07-11 15:25:00 2023-07-11 16:20:00 [facility] [id number] [facility] 2022-10-01 23:43:00 2022-10-02 00:30:00 Emergency X HARVEY DAWN [facility] ERT [id number] [facility] 2022-10-01 23:43:00 2022-10-02 00:30:00 Emergency Harvey Dawn [facility] 1..840.114 [id number] [id number] [facility] 2021-08-21 09:30:00 2021-08-21 09:30:00 Imm/Inj Visit Nurse, Pao Post Immunizatio José Manuel Martinez [facility] PROFESSIO [facility] 1..840.114 [id number] [id number] [id number] [facility] 2021-08-21 09:30:00 2021-08-21 08:59:13 Outpatient JOSÉ MANUEL GAMBINO [facility] [id number] [facility] 2020-12-25 08:30:00 2020-12-25 08:28:56 Outpatient JOSÉ MANUEL GAMBINO [facility] [id number] [facility] 2020-12-05 08:40:00 2020-12-05 08:22:48 Outpatient R DAMRI JONES [facility] [id number] [facility] 2020-09-18 13:00:00 2020-09-18 13:00:00 Outpatient R STEFANY BROWN [facility] [id number] [facility] 2020-08-23 08:30:00 2020-08-23 08:30:00 Outpatient R [facility] [id number] [facility] 2020-08-23 08:30:00 2020-08-23 08:30:00 Outpatient MARIBEL CRABTREE [facility] [id number] [facility] 2020-06-29 14:30:00 2020-06-29 14:30:00 Outpatient R HECTOR BARRAZA [facility] [id number] [facility] Notes Date/Time Note Provider Source [...] of all belongings. É MIGUEL Caro RN [facility] 2023-08-08 09:39:18 Ana Rosa Freeman is a [...] NAD noted. Waiting on provider for evaluation. CONE PICKER [facility] 2023-08-08 08:32:13 Ana Rosa Freeman is a 33 year old female coming to the er for right sided tooth and left knee pain for months, pt reports taking Tylenol and Motrin for pain no injuries to knee pt managing secretions well A&Ox4 resp even and unlabored ambulatory to triage with a steady gait gcs 15 to er green chair for further eval CONE PICKER Marino Bernal RN [facility] 2018-11-18 12:06:00 [facility] ([facility] EMERGENCY PROVIDER REPORT REPORT#:[id number] REPORT STATUS: Signed DATE:11/18/18 TIME: 1206 PATIENT: ANA ROSA FREEMAN UNIT #: [id number] ROOM/BED: AGE: 28 SEX: F PCP PHYS: [...] 100 On: Room air Interpretation Interpreted by in, Pulse oximetry normal Time 1205 Portions of [...] 1205 Pulse 92 04/ 1205 Resp 16 11/18 1205 Last Documented: Result Date Time Pulse Ox 100 04/ 1205 B/P 119/81 04/10 1205 B/P Mean 93 04/10 1205 O2 Delivery Room air 04/10 1205 Temp 37.1 04/10 1205 Pulse 92 04/10 1205 Resp 16 11/18 1205 All vital [...] Woo on 11/18/18 at 1206 at 1611 [facility] #:[id number] END OF REPORT [facility] 2018-11-18 12:06:00 [facility] ([facility]) EMERGENCY PROVIDER REPORT REPORT#:[id number] REPORT STATUS: Signed DATE:11/18/18 TIME: 1206 PATIENT: ANA ROSA FREEMAN UNIT #: [id number] ROOM/BED: AGE: 28 SEX: F PCP PHYS: [...] 1205 Temp 37.1 04/10 1205 Pulse 92 11/18 1205 Resp 16 11/18 1205 Last Documented: Result Date Time Pulse Ox 100 04/10 1205 B/P 119/81 04/ 1205 B/P Mean [...] B/P 119/81 / 1205 B/P Mean 93 04/10 1205 O2 Delivery Room air / 1205 Temp 37.1 04/ 1205 Pulse 92 04/10 1205 Resp 16 11/18 1205 Last Documented: Result Date Time Pulse Ox 100 11/18 1205 B/P 119/81 / 1205 B/P Mean 93 /10 1205 O2 Delivery Room air / 1205 Temp 37.1 /10 1205 Pulse 92 04/10 1205 Resp 16 [...] Saw Pt Alone I have reviewed the PA/MOSAIC TILER's note and plan of care. I was available for consultation as needed at all times during the patient's visit in the emergency department. I agree with the clinical impression, plan and disposition. at 1611 at 145 RPT #:[id number] END OF REPORT [facility]
[2025-03-10] MEDS ORDERED: NA CHLORIDE 0.9% 1,000 ML ONE ×2 (06:38→08:41)
[2025-03-10] MEDS ORDERED: ONDANSETRON 4 MG/2 ML VIAL ONE (06:38)
[2025-03-10 06:43] LABS: Absolute Lymphocytes (CBC) 1.8 K/uL (0.7-4.9); Hematocrit 24.0 % (36.0-45.0); Hemoglobin 7.2 g/dL (12.0-15.0); MCH 17.8 pg (27.0-35.0); MCHC 29.9 g/dL (32.0-36.0); MCV 59.4 fL (80-100); MPV 8.0 fL (7.6-11.3); Nucleated RBC Absolute Count 0.0 (0-0); Nucleated Red Blood Cells % 0.0 % (0-0); RBC Red Blood Cell Count 4.03 M/uL (3.86-4.86); White Blood Count 9.20 thou/uL (4.3-10.9)
[2025-03-10 06:54] LABS: Calcium Oxalate Crystals- Ur Many /HPF (None Seen); Sqamous Epithelial <5 /HPF (None Seen); Urine Culture Reflex Order NOT NEEDED; Urine Microscopic Reflex YN ORDER UMIC
[2025-03-10 07:00] LABS: Albumin 3.9 g/dL (3.4-5.0); Albumin/Globulin Ratio 1.1 (1.1-1.8); Alkaline Phosphatase 36 U/L (45-117); Anion Gap 8.0 mEq/L (5.0-15.0); BUN Blood Urea Nitrogen 11 mg/dL (7-18); Globulin 3.6 g/dL (2.3-3.5); Glucose Level 115 mg/dL (74-106); Lipase 29 U/L (13-75); Potassium 3.0 mEq/L (3.5-5.1)
[2025-03-10 07:01] LABS: ALT/SGPT < 14 U/L (13-56); AST/SGOT < 10 U/L (15-37)
[2025-03-10] MEDS ORDERED: MORPHINE 4 MG/ML SYR ONE (07:05)
[2025-03-10] MEDS ORDERED: FAMOTIDINE 20 MG/2 ML VIAL IV ONE (07:05)
[2025-03-10] MEDS ORDERED: KETOROLAC 30 MG/ML INJ ONE (07:56)
--- NOTE | 2025-03-10 07:59 | RAD REPORT ---
EXAMINATION: CT ABDOMEN AND PELVIS WITH CONTRAST CLINICAL INDICATION: Abdominal pain TECHNIQUE: CT abdomen and pelvis was performed, after the administration of 100 cc Isovue-300.. Sagit andry and coronal reconstructions were obtained. One or more of the following dose reduction techniques were used: Automated exposure control, adjustment of the mA and kV according to patient si ze, and iterative reconstruction. Unless otherwise specified, incidental findings do not require dedicated imaging follow-up. [id number]. Oral contrast was not given which limits evaluation of bowel and appendix. COMPARISON: .Ultrasound same date FINDINGS: Gallbladder mildly distended. Ultrasound same date demonstrates a stone within the gallbladder neck. It is not well visualized on this examination. Periportal edema present. Adrenals, kidneys, spleen and pancreas unremarkable No adnexal mass. Normal appendix. Diastases rectus abdominis muscles. Liver, spleen, pancreas, adrenals and kidneys appear unremarkable No evidence of diverticulitis. : IMPRESSION: Cholelithiasis with mild gallbladder distention
--- NOTE | 2025-03-10 08:01 | RAD REPORT ---
EXAM: Abdominal exam Limited ultrasound CLINICAL HISTORY: Abdominal pain COMPARISON: None FINDINGS: 1.3 cm stone lodged within the gallbladder neck. Small amount of gallbladder sludge Gallbladder distended. Gallbladder wall not thickened. Biliary tree normal caliber IMPRESSION: Impacted stone within the gallbladder neck. Thickened gallbladder wall not noted Gallbladder distended
[2025-03-10] MEDS ORDERED: NA CHLORIDE 0.9% 100 ML ONE (08:41)
[2025-03-10] MEDS ORDERED: PIPERACIL/TAZO 3.375 GM VIAL IV ONE (08:41)
[2025-03-10 09:04] LABS: White Blood Cell Scan OK (OK)
--- NOTE | 2025-03-10 09:05 | EDPHYS ---
Physician Documentation [facility] Name: Ana Rosa Ferguson Age: 34 yrs Sex: Female : 1990 Arrival Date: 03/10/2025 Time: 05:55 Bed 5 Private MD: ED Physician Adis Tabares HPI: 03/10 06:24 This 34 yrs old Black Female presents to ER via Ambulatory with complaints of lupillo Nausea/Vomiting, Abdominal Pain. 06:24 The patient presents to the emergency department with nausea, vomiting, diarrhea, lupillo abdominal pain, of the epigastric area, right upper quadrant, left upper quadrant, right lower quadrant and left lower quadrant. Onset: The symptoms/episode began/occurred last night. Possible causes: unknown. The symptoms are aggravated by nothing. The symptoms are alleviated by nothing. Associated signs and symptoms: The patient has no apparent associated signs or symptoms. The patient has experienced a previous episode. 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 - Infectious Disease History:: Denies. - Social history:: Smoking status: Patient denies any tobacco usage or history of. ROS: 06:25 Constitutional: Negative for fever, chills, and weight loss, Eyes: Negative for injury, lupillo pain, redness, and discharge, ENT: Negative for injury, pain, and discharge, Neck: Negative for injury, pain, and swelling, Cardiovascular: Negative for chest pain, palpitations, and edema, Respiratory: Negative for shortness of breath, cough, wheezing, and pleuritic chest pain, Back: Negative for injury and pain, : Negative for injury, bleeding, discharge, and swelling, MS/Extremity: Negative for injury and deformity, Skin: Negative for injury, rash, and discoloration, Neuro: Negative for headache, weakness, numbness, tingling, and seizure, Psych: Negative for depression, anxiety, suicide ideation, homicidal ideation, and hallucinations, Allergy/Immunology: Negative for hives, rash, and allergies, Endocrine: Negative for neck swelling, polydipsia, polyuria, polyphagia, and marked weight changes, Hematologic/Lymphatic: Negative for swollen nodes, abnormal bleeding, and unusual bruising, 06:25 Abdomen/GI: Positive for abdominal pain, nausea and vomiting, diarrhea, abdominal cramps, Exam: 06:25 Constitutional: This is a well developed, well nourished patient who is awake, alert, lupillo and in no acute distress. Head/Face: Normocephalic, atraumatic. Eyes: Pupils equal round and reactive to light, extra-ocular motions intact. Lids and lashes normal. Conjunctiva and sclera are non-icteric and not injected. Cornea within normal limits. Periorbital areas with no swelling, redness, or edema. ENT: Nares patent. No nasal discharge, no septal abnormalities noted. Tympanic membranes are normal and external auditory canals are clear. Oropharynx with no redness, swelling, or masses, exudates, or evidence of obstruction, uvula midline. Mucous membranes moist. Neck: Trachea midline, no thyromegaly or masses palpated, and no cervical lymphadenopathy. Supple, full range of motion without nuchal rigidity, or vertebral point tenderness. No Meningismus. Chest/axilla: Normal chest wall appearance and motion. Nontender with no deformity. No lesions are appreciated. Cardiovascular: Regular rate and rhythm with a normal S1 and S2. No gallops, murmurs, or rubs. Normal PMI, no JVD. No pulse deficits. Respiratory: Lungs have equal breath sounds bilaterally, clear to auscultation and percussion. No rales, rhonchi or wheezes noted. No increased work of breathing, no retractions or nasal flaring. Back: No spinal tenderness. No costovertebral tenderness. Full range of motion. Skin: Warm, dry with normal turgor. Normal color with no rashes, no lesions, and no evidence of cellulitis. MS/ Extremity: Pulses equal, no cyanosis. Neurovascular intact. Full, normal range of motion., bilateral aka Neuro: Awake and alert, GCS 15, oriented to person, place, time, and situation. Cranial nerves II-XII grossly intact. Motor strength 5/5 in all extremities. Sensory grossly intact. Cerebellar exam normal. Normal gait. 06:25 Abdomen/GI: Inspection: abdomen appears normal, Bowel sounds: normal, Palpation: mild abdominal tenderness, moderate abdominal tenderness, in all quadrants, Liver: no appreciated palpable abnormalities, Hernia: not appreciated, Vital Signs: 06:18 BP 141 / 79; Pulse 58; Resp 18; Temp 98.2(O); Pulse Ox 100% on R/A; Weight 68.04 kg; al5 Height 5 ft. 7 in. ; Pain 10/10; 07:04 BP 137 / 97; Pulse 74; Resp 15 S; Pulse Ox 100% on R/A; kc6 06:18 Body Mass Index 23.49 (68.04 kg, 170.18 cm) al5 06:18 Pain Scale: Adult al5 MDM: 05:58 Medical Screening Exam initiated lupillo 09:03 ED course: US to my read, impacted stone, Dr Elder will see Dr Jolley admitting. [facility] 03/10 05:59 Order name: CBC with Diff; Complete Time: 09:10 [facility] 03/10 05:59 Order name: CMP; Complete Time: 08:02 [facility] 03/10 05:59 Order name: Lipase; Complete Time: 08:02 [facility] 03/10 05:59 Order name: Test, Urine; Complete Time: 08:02 [facility] 03/10 05:59 Order name: UA Rfx Jason Cult if indicated; Complete Time: 08:02 [facility] 03/10 06:55 Order name: CBC Smear Scan; Complete Time: 09:10 [facility] 03/10 08:14 Order name: Type And Screen [facility] 03/10 09:21 Order name: Ferritin; Complete Time: 11:37 [facility] 03/10 09:21 Order name: Transferrin Sat/Iron Binding; Complete Time: 11:37 [facility] 03/10 09:21 Order name: CBC without Diff [facility] 03/10 09:25 Order name: CBC with Automated Diff [facility] 03/10 09:25 Order name: CBC with Automated Diff [facility] 03/10 09:25 Order name: CBC with Automated Diff [facility] 03/10 09:25 Order name: CBC with Automated Diff [facility] 03/10 09:25 Order name: Comprehensive Metabolic Panel [facility] 03/10 09:25 Order name: Comprehensive Metabolic Panel [facility] 03/10 12:56 Order name: ABO/RH no charge; Complete Time: 13:01 [facility] 03/10 05:59 Order name: CT Abd/Pelvis - IV Contrast Only; Complete Time: 08:02 [facility] 03/10 06:24 Order name: US Abdomen Limited; Complete Time: 08:02 [facility] 03/10 05:59 Order name: IV Saline Lock; Complete Time: 06:35 [facility] 03/10 05:59 Order name: Labs collected and sent; Complete Time: 06:35 [facility] 03/10 08:14 Order name: NPO; Complete Time: 08:27 jr11 Administered Medications: 06:42 Drug: Ondansetron IVP 4 mg IVP once; over 2 minutes Route: IVP; Site: right antecubital;al5 07:03 Follow up: Response: No adverse reaction kc6 06:42 Drug: NS 0.9% IV 1000 ml IV at 1 bolus Per protocol; to be given as a bolus over 60 al5 minutes Route: IV; Rate: 1 bolus; Site: right antecubital; 08:09 Follow up: Response: No adverse reaction; IV Status: Completed infusion; IV Intake: kc6 1000ml 07:15 Drug: Famotidine IVP 20 mg IVP once; dilute with 10 mL 0.9% NaCl; give over 2 minutes kc6 Route: IVP; Site: right antecubital; 08:08 Follow up: Response: No adverse reaction kc6 07:15 Drug: morphine IVP or IV 4 mg IVP once over 4 mins Route: IVP; Infused Over: 4 mins; kc6 Site: right antecubital; 08:09 Follow up: Response: No adverse reaction; Pain is unchanged, physician notified; RASS: kc6 Alert and Calm (0) 08:08 Drug: Ketorolac IVP 15 mg IVP once Route: IVP; Site: right antecubital; kc6 08:28 Follow up: Response: No adverse reaction kc6 08:53 Drug: Piperacillin-Tazobactam IVPB 3.375 grams IVPB once over 60 mins; (mix in NS 100 kc6 mL) Route: IVPB; Infused Over: 60 mins; Site: right antecubital; 09:47 Follow up: Response: No adverse reaction; IV Status: Completed infusion; IV Intake: kc6 100ml 08:53 Drug: NS 0.9% IV 1000 ml IV at 125 ml/hr once; to be given as a bolus over 60 minutes kc6 Route: IV; Rate: 125 ml/hr; Site: right antecubital; 10:26 Follow up: Response: No adverse reaction; IV Status: Infusion continued upon admission kc6 Disposition Summary: 03/10/25 09:04 Hospitalization Ordered Notes: Hospitalization Status: Observation jr Provider: Stu Jolley jr Condition: Stable [facility] Problem: new [facility] Symptoms: are unchanged [facility] Bed/Room Type: Standard [facility] Location: Telemetry/MedSurg (observation)(03/10/25 16:06) kb3 Room Assignment: 414(03/10/25 16:06) kb3 Diagnosis - impacted gallstone, symptomatic cholelithiasis jr Discharge Instructions: - Discharge Summary Sheet lupillo - Abdominal Pain, Adult lupillo - Food Choices to Help Relieve Diarrhea, Adult lupillo - Diarrhea, Adult lupillo - Nausea and Vomiting, Adult lupillo - Nausea, Adult lupillo - Nausea and Vomiting, Adult, [id number] lupillo - Abdominal Pain, Adult, [id number] lupillo - Diarrhea, Adult, [id number] lupillo Forms: - Medication Reconciliation Form jr11 - SBAR form jr11 - Leadership Thank You Letter [facility] Prescriptions: - ondansetron 4 mg Oral Tablet,disintegrating - take 1 tablet ORAL route every 6 hours as needed for nausea and vomiting; 20 lupillo tablet; Refills: 0, Product Selection Permitted - Pepcid 20 mg Oral Tablet - take 1 tablet ORAL route every 12 hours for 10 days; 20 tablet; Refills: 0, lupillo Product Selection Permitted - dicyclomine 20 mg Oral tablet - take 1 tablet ORAL route 4 times per day; 28 tablet; Refills: 0, Product lupillo Selection Permitted Signatures: Dispatcher [employer] EDMS Glen Driscoll MD MD cha Attema, Lee, DUPLICATOR PUNCH OPERATOR-C DUPLICATOR PUNCH OPERATOR-Cla1 Adis Tabares MD MD jr11 Eva Askew, RN RN kc6 Mona Cerrato, RN RN kb3 Sonya Vargas, ARTI RN al5 Corrections: (The following items were deleted from the chart) 05:59 05:59 Abdomen Pelvis W Con+CT.RAD.BRZ ordered. EDOH EDMS 10:19 09:04 Telemetry/MedSurg (observation) jr11 kb3 10:19 09:04 jr11 kb3 16:06 10:19 [facility] ER HOLD kb3 kb3 16:06 10:19 ERHOLD- kb3 kb3
--- NOTE | 2025-03-10 09:05 | ER ---
Nurse's Notes [facility] Name: Ana Rosa Ferguson Age: 34 yrs Sex: Female : 1990 Arrival Date: 03/10/2025 Time: 05:55 Bed 5 Private MD: Diagnosis: impacted gallstone, symptomatic cholelithiasis Presentation: 03/10 06:18 Chief complaint: Patient states: c/o RUQ and epigastric pain radiating to the back, al5 along with n/v/d since 1700 yesterday. Coronavirus screen: At this time, the client does not indicate any symptoms associated with coronavirus-19. Ebola Screen: No symptoms or risks identified at this time. Initial Sepsis Screen: Does the patient meet any 2 criteria? No. Patient's initial sepsis screen is negative. Does the patient have a suspected source of infection? No. Patient's initial sepsis screen is negative. Risk Assessment: Do you want to hurt yourself or someone else? Patient reports no desire to harm self or others. Onset of symptoms was March 09, 2025. 06:18 Method Of Arrival: Ambulatory al5 06:18 Acuity: SANTI 3 al5 Triage Assessment: 06:20 General: Appears in no apparent distress. uncomfortable, Behavior is calm, cooperative. al5 Pain: Complains of pain in anterior aspect of right lateral abdomen and right upper quadrant Pain radiates to right mid back Pain currently is 10 out of 10 on a pain scale. EENT: No signs and/or symptoms were reported regarding the EENT system. Neuro: Level of Consciousness is awake, alert, obeys commands, Oriented to person, place, time, situation. Cardiovascular: Capillary refill < 3 seconds Patient's skin is warm and dry. Respiratory: Airway is patent Respiratory effort is even, unlabored, Respiratory pattern is regular, symmetrical. GI: Abdomen is flat, non-distended, Reports upper abdominal pain, diarrhea, nausea, vomiting. : No signs and/or symptoms were reported regarding the genitourinary system. Derm: Skin is intact, is healthy with good turgor, Skin is pink, warm \T\ dry. normal. Musculoskeletal: No signs and/or symptoms reported regarding the musculoskeletal system. Circulation, motion, and sensation intact. Range of motion: intact in all extremities. 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 - Infectious Disease History:: Denies. - Social history:: Smoking status: Patient denies any tobacco usage or history of. Screenin:22 [facility] ED Fall Risk Assessment (Adult) History of falling in the last 3 months, al5 including since admission No falls in past 3 months (0 pts) Confusion or Disorientation No (0 pts) Intoxicated or Sedated No (0 pts) Impaired Gait No (0 pts) Mobility Assist Device Used No (0 pt) Altered Elimination No (0 pt) Score/Fall Risk Level 0 - 2 = Low Risk Oriented to surroundings, Maintained a safe environment, Hourly rounding (assess needs \T\ fall precautionary measures) done. Abuse screen: Denies threats or abuse. Denies injuries from another. Nutritional screening: No deficits noted. Tuberculosis screening: No symptoms or risk factors identified. Assessment: 06:22 Reassessment: see triage assessment. al5 07:10 Reassessment: patient reports hx of anemia during and heavy menstrual cycles kc6 and needing a blood transfusion in the past. patient denies any abnormal bleeding at this present time. 07:15 General: Appears in no apparent distress. uncomfortable, well groomed, well developed, kc6 Behavior is calm, cooperative, appropriate for age. Pain: Complains of pain in abdomen diffusely. Neuro: Level of Consciousness is awake, alert, obeys commands, Oriented to person, place, time, situation, Appropriate for age. Cardiovascular: Capillary refill < 3 seconds. Respiratory: Airway is patent Trachea midline Respiratory effort is even, unlabored, Respiratory pattern is regular, symmetrical. GI: Abdomen is flat, non-distended, Bowel sounds present X 4 quads. Abd is soft X 4 quads Abdomen is tender to palpation X 4 quads. Reports lower abdominal pain, upper abdominal pain, nausea, vomiting, Patient currently denies bloody stool, diarrhea, rectal bleeding. : Reports heavy menstrual cycles Denies burning with urination, urinary frequency, urgency, vaginal bleeding. EENT: No signs and/or symptoms were reported regarding the EENT system. Derm: No signs and/or symptoms reported regarding the dermatologic system. Skin is intact, is healthy with good turgor, Skin is normal. Musculoskeletal: No signs and/or symptoms reported regarding the musculoskeletal system. Circulation, motion, and sensation intact. Range of motion: intact in all extremities. 08:09 Reassessment: Patient appears in no apparent distress at this time. No changes from kc6 previously documented assessment. Patient and/or family updated on plan of care and expected duration. Pain level reassessed. Patient is alert, oriented x 3, equal unlabored respirations, skin warm/dry/pink. 09:09 Reassessment: Patient appears in no apparent distress at this time. No changes from kc6 previously documented assessment. Patient and/or family updated on plan of care and expected duration. Pain level reassessed. Patient is alert, oriented x 3, equal unlabored respirations, skin warm/dry/pink. Vital Signs: 06:18 BP 141 / 79; Pulse 58; Resp 18; Temp 98.2(O); Pulse Ox 100% on R/A; Weight 68.04 kg; al5 Height 5 ft. 7 in. ; Pain 10/10; 07:04 BP 137 / 97; Pulse 74; Resp 15 S; Pulse Ox 100% on R/A; kc6 06:18 Body Mass Index 23.49 (68.04 kg, 170.18 cm) al5 06:18 Pain Scale: Adult al5 ED Course: 05:57 Patient arrived in ED. jj6 05:58 Glen Driscoll MD is Attending Physician. [facility] 06:18 Sonya Vargas RN is Primary Nurse. al5 06:20 Triage completed. al5 06:20 Arm band placed on right wrist. Patient placed in the treatment room, in view of staff al5 members, on pulse oximetry. 06:22 Patient has correct armband on for positive identification. Bed in low position. Call al5 light in reach. Side rails up X2. Provided Education on: plan of care. 06:22 No provider procedures requiring assistance completed. al5 06:35 Inserted saline lock: 20 gauge in right antecubital area, using aseptic technique. al5 Blood collected. Flushed with 10 mL NS. 07:04 Report received from ARTI Hassan. kc6 07:15 Attending Physician role handed off by Glen Driscoll MD jr11 07:15 Adis Tabarse MD is Attending Physician. jr11 07:47 CT Abd/Pelvis - IV Contrast Only In Process Unspecified. EDMS 07:58 US Abdomen Limited In Process Unspecified. EDMS 09:04 Stu Jolley MD is Hospitalizing Provider. jr11 10:26 Patient admitted, IV remains in place. kc6 Administered Medications: 06:42 Drug: Ondansetron IVP 4 mg IVP once; over 2 minutes Route: IVP; Site: right antecubital;al5 07:03 Follow up: Response: No adverse reaction kc6 06:42 Drug: NS 0.9% IV 1000 ml IV at 1 bolus Per protocol; to be given as a bolus over 60 al5 minutes Route: IV; Rate: 1 bolus; Site: right antecubital; 08:09 Follow up: Response: No adverse reaction; IV Status: Completed infusion; IV Intake: kc6 1000ml 07:15 Drug: Famotidine IVP 20 mg IVP once; dilute with 10 mL 0.9% NaCl; give over 2 minutes kc6 Route: IVP; Site: right antecubital; 08:08 Follow up: Response: No adverse reaction kc6 07:15 Drug: morphine IVP or IV 4 mg IVP once over 4 mins Route: IVP; Infused Over: 4 mins; kc6 Site: right antecubital; 08:09 Follow up: Response: No adverse reaction; Pain is unchanged, physician notified; RASS: kc6 Alert and Calm (0) 08:08 Drug: Ketorolac IVP 15 mg IVP once Route: IVP; Site: right antecubital; kc6 08:28 Follow up: Response: No adverse reaction kc6 08:53 Drug: Piperacillin-Tazobactam IVPB 3.375 grams IVPB once over 60 mins; (mix in NS 100 kc6 mL) Route: IVPB; Infused Over: 60 mins; Site: right antecubital; 09:47 Follow up: Response: No adverse reaction; IV Status: Completed infusion; IV Intake: kc6 100ml 08:53 Drug: NS 0.9% IV 1000 ml IV at 125 ml/hr once; to be given as a bolus over 60 minutes kc6 Route: IV; Rate: 125 ml/hr; Site: right antecubital; 10:26 Follow up: Response: No adverse reaction; IV Status: Infusion continued upon admission kc6 Medication: 06:22 VIS not applicable for this client. al5 Intake: 08:09 IV: 1000ml; Total: 1000ml. kc6 09:47 IV: 100ml; Total: 1100ml. kc6 Outcome: 09:04 Decision to Hospitalize by Provider. jr11 10:26 Admitted to ER Hold. Please see [facility] for further documentation. kc6 10:26 Condition: stable 10:26 Instructed on the need for admit, 16:50 Patient left the ED. kc6 Signatures: Dispatcher [employer] EDTN Glen Driscoll MD MD cha Jeffries, Jennifer jj6 Adis Tabares MD MD jr11 Eva Askew RN RN kc6 Sonya Vargas RN RN al5
[2025-03-10 09:09] LABS: Blood Morphology Comment NOTED (NOT SEEN); Hypochromasia 3+; Microcytosis 3+; Teardrop Cell 2+
[2025-03-10 09:41] LABS: Ferritin 1.8 ng/mL (8-252); Iron 10.0 ug/dL (50-170); Transferrin 404.0 mg/dL (200-360)
--- NOTE | 2025-03-10 10:58 | CON ---
Date of Consultation: 03/10/2025 Reason: Abdominal pain. History Of Present Illness: The patient is a 34-year-old female, who presents with approximately 12- hour history of postprandial epigastric and right upper quadrant abdominal pain, associated with naus ea, vomiting, bloating, belching, and heartburn. The patient denies any diarrhea or constipation. N o blood per rectum. No dysuria or hematuria. The patient has had similar episodes in the past, but this is much worse. The patient denies any sore throat, runny nose, cough, headaches, or dizziness. No chest pain. No fever or chills. Review of Systems: Otherwise unremarkable. Please note, the patient does have heavy menses and is known to be anemic an d has required a blood transfusion when she had a in the past. Past Medical History: Negative. Past Surgical History: . Allergies: NO ALLERGIES. Social History: The patient denies smoking or alcohol. Physical Examination: Vital Signs: Stable. She is afebrile. General: She is awake, alert. Head and Neck: No evidence of icterus. No neck masses. No JVD. Throat clear. Neck is supple. Chest: Clear. Heart: S1, S2. Abdomen: Soft, nondistended. Positive right upper quadrant tenderness with minimal rebound. No rig idity or guarding. Extremities: Adequately perfused, nontender. Neuro: Nonfocal. Imaging Data: Ultrasound of the abdomen shows impacted stone within the gallbladder neck, thickened gallbladder wall not noted, gallbladder distention as the patient had a CT of the abdomen and pelvis also, which shows cholelithiasis with mild gallbladder distention. Laboratory Data: Reviewed, shows white count of 9.2, H and H of 7.2 and 24.0, platelets of 257. Allie murali reviewed. Her iron studies are elevated. TIBC and transferrin and iron level is low. Ferrit in and transferrin percent saturation is low. Her LFTs are essentially unremarkable. Lipase is norm al. Potassium is low and is being replaced. Assessment: A 34-year-old female with acute cholecystitis, cholelithiasis, and significant anemia. Recommendations: We will recheck her hemoglobin. After hydration, it should not go below 7. I woul d recommend transfusing the patient a unit of blood prior to surgery, which will be done tomorrow gennaro boo. The patient understands risks, benefits, and alternatives and agrees to procedure. Plan of ca re discussed with the Hospitalist Team. /MODL Voice ID: [id number] Report ID: [id number]
[2025-03-10 11:04] VITALS: BMI 23.3
[2025-03-10 15:17] LABS: Hematocrit 22.0 % (36.0-45.0); Hemoglobin 6.6 g/dL (12.0-15.0); MCH 17.8 pg (27.0-35.0); MCHC 30.1 g/dL (32.0-36.0); MCV 59.1 fL (80-100); MPV 8.0 fL (7.6-11.3); RBC Red Blood Cell Count 3.72 M/uL (3.86-4.86); White Blood Count 10.70 thou/uL (4.3-10.9)
--- NOTE | 2025-03-10 15:37 | P.HP ---
Certification for Inpatient Patient admitted to: Observation With expected LOS: <2 Midnights Patient will require the following post-hospital care: None Practitioner: I am a practitioner with admitting privileges, knowledge of patient current condition, hospital course, and medical plan of care. Services: Services provided to patient in accordance with Admission requirements found in Title 42 Section 412.3 of the Code of Federal Regulations Patient History Date of Service: 03/10/25 Reason for admission: Acute cholecystitis, anemia History of Present Illness: 34-year-old female with history of iron deficiency anemia presents the emergency department chief complaint of abdominal pain, nausea and vomiting. She was evaluated in the emergency department her labs were significant for a white blood cell count of 9.2 hemoglobin 7.2 hematocrit 24.0 potassium 3.0, iron levels/studies were added to labs her iron level was 10, ferritin 1.8, transferrin saturation percentage was 1.8. Abdominal ultrasound was performed which showed an impacted stone within the gallbladder neck and a distended gallbladder. CT of the abdomen pelvis was also performed which showed cholelithiasis with gallbladder distention. Patient was evaluated by general surgery who recommends admission to the hospital, likely to have laparoscopic cholecystectomy in the morning. Allergies No Known Allergies Allergy (Unverified 03/10/25 09:30) Home Medications: Pnv73/Iron,Gluc/Folic/Dss/Dha [Citranatal Assure Combo Pack] 1 each PO DAILY 06/22/14 Codeine/APAP [Tylenol W/Codeine #3 tab] 1 tab PO Q6HP PRN #30 tab 06/24/14 - Past Medical/Surgical History Diabetic: No -: Iron deficiency anemia -: None Psychosocial/ Personal History: Lives at home with family - Family History Mother -: Hypertension - Social History Alcohol use: No CD- Drugs: No Caffeine use: No Place of Residence: Home Review of Systems 10-point ROS is otherwise unremarkable Gastrointestinal: Nausea, Vomiting, Abdominal Pain Physical Examination - Physical Exam General: Alert, In no apparent distress, Oriented x3 HEENT: Atraumatic, PERRLA Neck: Supple, 2+ carotid pulse no bruit, No LAD Respiratory: Clear to auscultation bilaterally, Normal air movement Cardiovascular: Regular rate/rhythm, Normal S1 S2 Gastrointestinal: Normal bowel sounds, Tenderness (Mild upper abdominal tenderness) Musculoskeletal: No tenderness Integumentary: No rashes Neurological: Normal gait, Normal speech, Normal strength at 5/5 x4 extr, Normal affect - Studies Laboratory Data (last 24 hrs) 03/10/25 03/10/25 06:31 06:31 WBC 9.20 Hgb 7.2 L Hct 24.0 L Plt Count 257 Sodium 137 Potassium 3.0 L BUN 11 Creatinine 0.63 Glucose 115 H Total Bilirubin 0.3 AST < 10 L ALT < 14 Alkaline Phosphatase 36 L Lipase 29 Assessment and Plan - Plan Assessment: Cholelithiasis, gallbladder distention suspected acute cholecystitis Iron deficiency anemia Plan: Cholelithiasis, gallbladder distention suspected acute cholecystitis Clear liquid diet for today, n.p.o. after midnight IV antibioticsZosyn Anticipate laparoscopic cholecystectomy likely tomorrow morning Iron deficiency anemia Initial hemoglobin 7.2 Repeat hemoglobin this afternoon, likely to need blood transfusion Will need to start taking iron at discharge, has previously been instructed to take iron Will also need follow-up with DISTRICT SALES MANAGER as she has heavy cycles. DVT PPX: SCDs Code status: Full code Discharge Plan: Home Plan to discharge in: 48 Hours - Advance Directives Does patient have a Living Will: No Does patient have a Durable POA for Healthcare: No Critical Care: Yes (Full code) Time Spent Managing Pts Care (In Minutes): 64
[2025-03-10] MEDS ORDERED: NA CHLORIDE 0.9% 250 ML IV SCH (16:00)
[2025-03-10] MEDS: PIPER TAZO 3.375 GM in NA CHLORIDE 0.9% 100 ML IV SCH (18:04)
[2025-03-10] MEDS: POTASSIUM 25 MEQ EFFERV TAB PO ONE (22:12)
[2025-03-10] MEDS: MORPHINE 2 MG/ML SYR IV PRN (22:13)
[2025-03-10] MEDS: ONDANSETRON 4 MG/2 ML VIAL IV PRN (22:13)
[2025-03-11] MEDS: NA CHLORIDE 0.9% 1,000 ML IV SCH (00:52)
[2025-03-11 01:13] LABS: Hematocrit 24.6 % (36.0-45.0); Hemoglobin 7.6 g/dL (12.0-15.0)
[2025-03-11 05:56] LABS: Absolute Lymphocytes (CBC) 2.3 K/uL (0.7-4.9); Hematocrit 25.5 % (36.0-45.0); Hemoglobin 7.9 g/dL (12.0-15.0); MCH 19.2 pg (27.0-35.0); MCHC 31.0 g/dL (32.0-36.0); MPV 8.3 fL (7.6-11.3); Nucleated RBC Absolute Count 0.0 (0-0); Nucleated Red Blood Cells % 0.0 % (0-0); RBC Red Blood Cell Count 4.11 M/uL (3.86-4.86); White Blood Count 9.40 thou/uL (4.3-10.9)
[2025-03-11 05:57] LABS: MCV 62.1 fL (80-100)
[2025-03-11 06:09] LABS: Albumin 3.4 g/dL (3.4-5.0); Albumin/Globulin Ratio 1.1 (1.1-1.8); Alkaline Phosphatase 36 U/L (45-117); Anion Gap 5.5 mEq/L (5.0-15.0); BUN Blood Urea Nitrogen 5 mg/dL (7-18); Globulin 3.2 g/dL (2.3-3.5); Glucose Level 88 mg/dL (74-106); Potassium 3.5 mEq/L (3.5-5.1)
[2025-03-11 06:13] LABS: ALT/SGPT < 14 U/L (13-56); AST/SGOT < 10 U/L (15-37)
[2025-03-11] MEDS ORDERED: ROCURONIUM 50 MG/5 ML VIAL IV ONE ×2 (07:25→09:15)
[2025-03-11] MEDS ORDERED: LIDOCAINE 2% MPF 5 ML VIAL ONE (07:25)
[2025-03-11] MEDS ORDERED: FENTANYL CITR 100 MCG/2 ML ONE ×2 (07:25→09:01)
[2025-03-11] MEDS ORDERED: MIDAZOLAM HCL 2 MG/2 ML INJ ONE (07:26)
[2025-03-11] MEDS ORDERED: ONDANSETRON 4 MG/2 ML VIAL ONE ×2 (07:47→09:11)
[2025-03-11] MEDS ORDERED: KETOROLAC 30 MG/ML INJ ONE ×2 (07:47→09:11)
[2025-03-11] MEDS ORDERED: NEOSTIGMINE 1 MG/ML -10 ML VIAL ONE (09:11)
[2025-03-11] MEDS ORDERED: GLYCOPYRROLATE 0.2 MG/ML SYR ONE (09:11)
[2025-03-11] MEDS ORDERED: Mastisol Adhesive Liq ONE (09:14)
--- NOTE | 2025-03-11 09:51 | P.OP ---
Date of Service: 03/11/25 Preop diagnosis: Acute cholecystitis and cholelithiasis, anemia Postop diagnosis: Same Procedure performed: Laparoscopic cholecystectomy Surgeon: Moises Elder MD Sl[employer] Rew[employer] Machine Operator: Jannette BARBA Estimated blood loss: Minimal Specimen: Gallbladder Findings: As above Anesthesia: General Complications: None Drains: None Fluids and blood products: Nonapplicable Disposition: Recovery room Operative note: Patient brought to the OR and placed in supine position. General anesthesia began. Patient prepped and draped in the usual sterile fashion. Marcaine 0.5% infiltrated locally. 15 blade used to make a 1 cm supraumbilical midline incision. Subcutaneous tissue divided and bleeding controlled cautery. Fascia identified and divided. #1 Vicryl stay suture placed. Peritoneal cavity entered with sharp and blunt dissection. 12 mm trocar placed into the peritoneal cavity under direct vision. Pneumoperitoneum established. Then three 5 mm trocar placed under direct vision. 1 trocar placed in the epigastric region just to the right of midline and 2 trocars placed in the right subcostal region. Laparoscopy revealed a distended thick- walled gallbladder consistent with acute cholecystitis. Fundus of the gallbladder identified and retracted superiorly. Infundibulum identified and retracted inferolaterally. Cystic duct and cystic artery clearly identified with blunt dissection. Clips placed in both structures divided. Cautery from the liver bed controlled with cautery bleeding on the liver bed controlled with cautery. Gallbladder retrieved to the umbilicus via Endo Catch bag. Right upper quadrant irrigated and no evidence of bleeding or bile leakage appreciated. There was a small amount of oozing noted from the falciform ligament attachment to the liver. This was easily controlled with cautery. There was no other evidence of bleeding or bowel injury appreciated. Subsequently all trocars removed under direct vision. Stay sutures tied to each other to reapproximate the fascial defect. Subcutaneous wounds irrigated and bleeding controlled cautery. 3-0 chromic used to approximate subcutaneous tissue and close skin. Sterile dressing applied. Patient awakened and taken to recovery room in good general condition. CC:
[2025-03-11] MEDS: HYDROMORPHONE HCL 1 MG/ML INJ ONE (10:16)
--- NOTE | 2025-03-11 14:47 | P.PN ---
Date of Service: 03/11/25 Subjective: Status post laparoscopic cholecystectomy this morning Stable so far Advance diet as tolerated ROS: 10 point ROS as noted above, otherwise negative Physical exam GEN: Alert, oriented, NAD HEENT: Normal conjunctiva, sclera anicteric CV: Regular rate and rhythm, no edema Pulm: Nonlabored respirations on room air ABD: Soft, nontender, nondistended MSK: No joint tenderness Integumentary: No rashes Neuro: Normal speech, normal affect Vitals reviewed Assessment: Cholelithiasis, gallbladder distention suspected acute cholecystitis Iron deficiency anemia Plan: Cholelithiasis, gallbladder distention suspected acute cholecystitis Status post laparoscopic cholecystectomy this morning Advance diet as tolerated Repeat CBC in the morning Iron deficiency anemia Initial hemoglobin 7.2, up to 7.9 after 1 unit PRBC Recheck hemoglobin the morning Will need to start taking iron at discharge, has previously been instructed to take iron Will also need follow-up with COUNTY ENGINEER as she has heavy cycles. DVT PPX: SCDs Code status: Full code Discharge Plan: Home Plan to discharge in: 48 Hours Time Spent Managing Pts Care (In Minutes): 35
[2025-03-11] MEDS: HYDROMORPHONE HCL 1 MG/ML INJ IV PRN (15:24)
[2025-03-12] MEDS: HYDROCODONE/APAP 7.5/325 MG TAB PO PRN (07:12)
[2025-03-12 07:33] VITALS: O2SAT 95
[2025-03-12 07:40] LABS: Absolute Lymphocytes (CBC) 1.4 K/uL (0.7-4.9); Hematocrit 25.0 % (36.0-45.0); Hemoglobin 7.7 g/dL (12.0-15.0); MCH 19.3 pg (27.0-35.0); MCHC 30.7 g/dL (32.0-36.0); MCV 62.8 fL (80-100); MPV 8.3 fL (7.6-11.3); Nucleated RBC Absolute Count 0.0 (0-0); Nucleated Red Blood Cells % 0.1 % (0-0); RBC Red Blood Cell Count 3.98 M/uL (3.86-4.86); White Blood Count 11.10 thou/uL (4.3-10.9)
[2025-03-12 10:13] VITALS: TEMP 98
[2025-03-12 13:35] VITALS: BP 127/75
--- NOTE | 2025-03-12 15:19 | PN ---
Date of Progress Note: 03/12/2025 Subjective: The patient is awake, alert, tolerating diet, ambulating. Pain control on p.o. pain med ication. Afebrile. Laboratory Data: Reviewed. Her H and H are stable at 7.7 and 25, and her white count is slightly up . Objective: Abdomen: Soft, nondistended, nontender. Dressing is clean, dry, and intact. Assessment: Status post laparoscopic cholecystectomy. Recommendation: Patient cleared from surgery for discharge. Discharge instructions given. Patient will follow up with me in 1 week. Discharge plan discussed with the hospitalist team. /MODL Voice ID: [id number] Report ID: [id number]
--- NOTE | 2025-03-12 16:14 | P.DS ---
Admission Date: 03/11/25 Discharge Date: 03/12/25 Disposition: ROUTINE DISCHARGE Discharge Condition: GOOD Reason for Admission: Acute cholecystitis, anemia Brief History of Present Illness: 34-year-old female with history of iron deficiency anemia presents the emergency department chief complaint of abdominal pain, nausea and vomiting. She was evaluated in the emergency department her labs were significant for a white blood cell count of 9.2 hemoglobin 7.2 hematocrit 24.0 potassium 3.0, iron levels/studies were added to labs her iron level was 10, ferritin 1.8, transferrin saturation percentage was 1.8. Abdominal ultrasound was performed which showed an impacted stone within the gallbladder neck and a distended gallbladder. CT of the abdomen pelvis was also performed which showed cholelithiasis with gallbladder distention. Patient was evaluated by general surgery who recommends admission to the hospital, likely to have laparoscopic cholecystectomy in the morning. Hospital Course: Assessment: Cholelithiasis, gallbladder distention suspected acute cholecystitis Iron deficiency anemia Patient was admitted to the hospital for acute cholecystitis, she underwent laparoscopic cholecystectomy on 03/11 and has done well postoperatively, she is stable for discharge. She does a history of iron deficiency anemia, she was significantly anemic on admission with a hemoglobin of 7.2, after IV fluids and antibiotics her hemoglobin was rechecked and it was 6.6, she was given 1 unit of packed red blood cells. Prior to receiving blood transfusion we did check her iron levels, her iron level is 10.0 TIBC 566 transferrin 404 transfer saturation percent is 1.8 ferritin 1.8. Hemoglobin increased to 7.9 after blood transfusion, this morning after surgery to 7.7, she denies any GI bleeding, does report she has heavy menstrual cycles. She is counseled on the need for follow-up with ELECTRIC WELL LOGGING OPERATOR outpatient and the need for daily iron supplementation, she will also be provided prescriptions for pain medications, antibiotics, stool softener and iron supplementation. Vital Signs/Physical Exam: Temp Pulse Resp BP Pulse Ox 98.0 F 57 16 127/75 100 03/12/25 12:03/12/25 12:03/12/25 12:00 03/12/25 12:03/12/25 12:00 General: Alert, In no apparent distress, Oriented x3 HEENT: Atraumatic, PERRLA Neck: Supple, JVD not distended Respiratory: Clear to auscultation bilaterally, Normal air movement Cardiovascular: Regular rate/rhythm, Normal S1 S2 Gastrointestinal: Normal bowel sounds, No tenderness Musculoskeletal: No tenderness Integumentary: No rashes Neurological: Normal speech, Normal affect Laboratory Data at Discharge: WBC 11.10 thou/uL (4.3-10.9) H 03/12/25 06:13 Hgb 7.7 g/dL (12.0-15.0) L 03/12/25 06:13 Hct 25.0 % (36.0-45.0) L 03/12/25 06:13 Plt Count 314 thou/uL (152-406) 03/12/25 06:13 Sodium 136 mEq/L (136-145) 03/11/25 05:25 Potassium 3.5 mEq/L (3.5-5.1) D 03/11/25 05:25 BUN 5 mg/dL (7-18) L 03/11/25 05:25 Creatinine 0.67 mg/dL (0.55-1.02) 03/11/25 05:25 Glucose 88 mg/dL (74-106) 03/11/25 05:25 Total Bilirubin 0.8 mg/dL (0.2-1.0) 03/11/25 05:25 AST < 10 U/L (15-37) L 03/11/25 05:25 ALT < 14 U/L (13-56) 03/11/25 05:25 Alkaline Phosphatase 36 U/L (45-117) L 03/11/25 05:25 Lipase 29 U/L (13-75) 03/10/25 06:31 Home Medications: Amox/Clavulanate [Augmentin 875-125 Tab] 875 mg PO BID 7 Days #14 tab 03/12/25 Docusate/Senna [Senokot-S*] 1 tab PO DAILY PRN #30 tab 03/12/25 Ferrous Sulfate [Iron] 325 mg PO DAILY #30 tab 03/12/25 Hydrocodone 5/APAP 325 [[place] 5/325] 1 tab PO Q6H PRN #15 tab 03/12/25 New Medications: Amox/Clavulanate [Augmentin 875-125 Tab] 875 mg PO BID 7 Days #14 tab Ferrous Sulfate [Iron] 325 mg PO DAILY #30 tab Hydrocodone 5/APAP 325 [[place] 5/325] 1 tab PO Q6H PRN #15 tab PRN Reason: Pain Docusate/Senna [Senokot-S*] 1 tab PO DAILY PRN #30 tab PRN Reason: Constipation Physician Discharge Instructions: Remove outer dressing in a.m. and shower Keep Steri-Strips on at all times Incentive spirometry as instructed Resume home meds and diet Activity as tolerated, no heavy lifting or strenuous exercise Follow-up my office 1 week, call for appointment Antibiotics and pain meds per the hospitalist team Please have patient follow-up with ELECTRIC WELL LOGGING OPERATOR as an outpatient Patient was admitted to the hospital for acute cholecystitis, she underwent laparoscopic cholecystectomy on 03/11 and has done well postoperatively, she is stable for discharge. She does a history of iron deficiency anemia, she was significantly anemic on admission with a hemoglobin of 7.2, after IV fluids and antibiotics her hemoglobin was rechecked and it was 6.6, she was given 1 unit of packed red blood cells. Prior to receiving blood transfusion we did check her iron levels, her iron level is 10.0 TIBC 566 transferrin 404 transfer saturation percent is 1.8 ferritin 1.8. Hemoglobin increased to 7.9 after blood transfusion, this morning after surgery to 7.7, she denies any GI bleeding, does report she has heavy menstrual cycles. She is counseled on the need for follow-up with ELECTRIC WELL LOGGING OPERATOR outpatient and the need for daily iron supplementation, she will also be provided prescriptions for pain medications, antibiotics, stool softener and iron supplementation. Diet: Regular Activity: No lifting more than 10 lbs Followup: NONE,NONE [Primary Care Provider] - 1-2 Weeks (Call for appointment.) Moises Elder MD [ACTIVE - CAN ADMIT] - 1 Week (Call for appointment.) Time spent managing pt's care (in minutes): 38
== END 2025-03-12 13:45 | disposition home or self-care (01) | DRG 419 ==
LOC: ER 05:55 → ERHOLD 09:20 → 4TH 17:01 → OBSVTOIN 03-11 14:44
PROVIDERS: ADMIT Hospitalist; ATTEND Hospitalist
PROC: 30233N1 Transfusion of Nonautologous Red Blood Cells into Peripheral Vein, Percutaneous Approach (ICD-10-PCS; 2025-03-11)
PROC: 0FT44ZZ Resection of Gallbladder, Percutaneous Endoscopic Approach (ICD-10-PCS; principal; 2025-03-11 08:30)
DX: K80.00 Calculus of gallbladder with acute cholecystitis without obstruction (principal); D50.9 Iron deficiency anemia, unspecified; Z79.899 Other long term (current) drug therapy; Z79.891 Long term (current) use of opiate analgesic
CPT/HCPCS: 36415; 74177; 76705; 80053; 81001; 81025; 82728; 83540; 83690; 84466; 85014; 85018; 85025; 85027; 86850; 86900; 86901; 86920; 88304; 94010; 96361; 96365; 96375; 99285; G0378; J1100; J1171; J2003; J2250; J2270; J2405; J2543; J2704; J2710; J3010; J7030; J7050; P9016; Q9967